=== PATIENT | female | born 1945 | race Caucasian/White ===

== ENCOUNTER 2019-07-27 14:08 | Inpatient (IN) | payer MEDICARE ==
[~2019-07-27] VITALS: Ht 167.6 cm; Wt 123.5 kg
[2019-07-27] MEDS ORDERED: FURO40TA2 PO (14:40)
[2019-07-27] MEDS ORDERED: BUPR150T3 PO (14:40)
[2019-07-27] MEDS ORDERED: GABA-843 PO (14:40)
[2019-07-27] MEDS ORDERED: ROPI4TAB3 PO (14:40)
[2019-07-27] MEDS ORDERED: METO1TAB32 PO (14:40)
[2019-07-27] MEDS ORDERED: FLUO10CA8 PO (14:40)
[2019-07-27 15:02] LABS: BASO % 0.5 % (0.0-1.0); EOS # 0.1 10^3/uL (0.0-0.5); EOS % 2.2 % (0.0-3.0); HEMATOCRIT 47.8 % (36.0-47.0); HEMOGLOBIN 15.2 g/dl (12.0-15.5); LYMPH # 1.6 10^3/uL (1.5-5.0); MEAN CORPUSCULAR HEMOGLOBIN 31.1 pg (27.0-33.0); MEAN CORPUSCULAR HGB CONC 31.8 g/dl (32.0-36.5); MONO # 0.5 10^3/uL (0.0-0.8); MONO % 7.6 % (0.0-5.0); NEUTROPHILS # 4.2 10^3/uL (1.5-8.5); NEUTROPHILS % 65.1 % (36.0-66.0); PLATELET COUNT, AUTOMATED 236 10^3/uL (150-450); RED BLOOD COUNT 4.88 10^6/uL (4.00-5.40); WHITE BLOOD COUNT 6.5 10^3/uL (4.0-10.0)
[2019-07-27] MEDS ORDERED: FUROSEMIDE 100 MG/10 ML VIAL (J1940) IV ONE (15:15)
[2019-07-27] MEDS ORDERED: TREL1AER INH (15:16)
[2019-07-27] MEDS ORDERED: RANO500T7 PO (15:16)
[2019-07-27] MEDS ORDERED: OMEP-218 PO (15:16)
[2019-07-27 15:30] LABS: ALBUMIN 3.2 GM/DL (3.2-5.2); ALT/SGPT 28 U/L (12-78); BILIRUBIN,DIRECT 0.1 MG/DL (0.0-0.2); BILIRUBIN,TOTAL 0.5 MG/DL (0.2-1.0); BLOOD UREA NITROGEN 28 MG/DL (7-18); CALCIUM LEVEL 9.4 MG/DL (8.8-10.2); CARBON DIOXIDE LEVEL 30 MEQ/L (21-32); CHLORIDE LEVEL 103 MEQ/L (98-107); CK-MB VALUE MASS < 1.0 NG/ML (<3.6); CPK CREATINE PHOSPHOKINASE 52 U/L (26-192); GLUCOSE, FASTING 121 MG/DL (70-100); MB/CK RELATIVE INDEX 1.92 (< OR =4); NT-PRO BNP 61 PG/ML (<125); POTASSIUM SERUM 4.2 MEQ/L (3.5-5.1); SODIUM LEVEL 141 MEQ/L (136-145); THYROXINE (T4) 11.2 UG/DL (4.5-12.0); TOTAL PROTEIN 7.6 GM/DL (6.4-8.2); TROPONIN I < 0.02 NG/ML (< 0.10)
[2019-07-27] MEDS ORDERED: IPRATROPIUM 0.5MG/ALBUTEROL 2.5MG INH SOL UD 3ML (DUONEB)(J7620) NEB ONE (16:30)
[2019-07-27] MEDS ORDERED: ONDANSETRON 4MG/2ML VIAL (J2405) IV ONE (17:00)
[2019-07-27] MEDS ORDERED: MORPHINE 2 MG/ML 1ML SYRINGE (J2270) IV ONE (17:00)
[2019-07-27] MEDS ORDERED: PROAAER10 INH (17:22)
[2019-07-27] MEDS ORDERED: ISOVUE-370 76% 100ML VIAL (Q9967) As Ordered ONE (17:52)
--- NOTE | 2019-07-27 18:26 | HPEPDOC ---
[facility] Medical History & Physical Date of Admission Jul 27, 2019 Date of Service: Jul 27, 2019 Attending Physician: ADELAIDA ABDUL MD History and Physical CHIEF COMPLAINT: Shortness of breath HISTORY OF PRESENT ILLNESS: 73 y.o female w/ PMH of COPD, HTN & GERD presents from home with progressive dypnea for the past 3 weeks, along with worsening LE edema. She has been having dyspnea for the past year, acutely worsened over the past 3 weeks. She also reports symptoms consistent with PND, sleeps with two pillows, requiring supplemental oxygen in the ED with b/l LE edema. She was evaluated by a Pusher Operator & Educational Resource Coordinator both of whom said the cause of her symptoms was not due to their organ of specialty. She has never had an Echocardiogram in the past, Cardiomegaly is noted on CXR. She has a history of breast Ca s/p mastectomy and is an active smoker. She denies personal or family history of blood clots; BNP wnl in the ED. 10 point ROS negative except for above. PAST MEDICAL HISTORY: 1. HTN. 2. GERD. 3. Breast cancer. 4. COPD PAST SURGICAL HISTORY: 1. Mastectomy. 2. Appendectomy. SOCIAL HISTORY: Tobacco use:active smoker, 1+ PPD ETOH: rare FAMILY HISTORY: strong family history of breast cancer ALLERGIES: Please see below. HOME MEDICATIONS: Please see below. PHYSICAL EXAMINATION: VITAL SIGNS: Please see below. GENERAL: No distress HEENT: Normocephalic, atraumatic, moist mucous membranes NECK: Supple CARDIOVASCULAR EXAMINATION: S1, S2, no murmurs RESPIRATORY EXAMINATION: Rhonchi appreciated ABDOMINAL EXAMINATION: Soft, nontender, nondistended, positive bowel sounds EXTREMITIES: Bilateral lower extremity pitting edema SKIN: No rash NEUROLOGICAL EXAMINATION: Alert and oriented 3, no focal deficits PSYCHIATRIC EXAMINATION: Calm and cooperative LABORATORY DATA: See below. IMAGING: Chest x-ray with cardiomegaly and vascular congestion MICROBIOLOGY: Please see below. ASSESSMENT: 73-year-old female with past medical history of COPD, hypertension and GERD presents with chronic but acutely worsened dyspnea and lower show any edema over the past 3 weeks. . PLAN: 1. Volume overload. Likely cardiac based on clinical assessment, status post 80 mg of IV Lasix in the ED Continue Lasix 40 mg IV daily. TTE pending, urine studies ordered to evaluate for nephrotic syndrome. CTA ordered to rule out PE given strong history of malignancy, neck mass, active smoker. 2. COPD Stable. Continue home meds, supplemental oxygen as needed to maintain oxygen sat uration of 90%. 3. CKD Stage III, will monitor renal function with Lasix and contrast administration. 4. Hypertension. Continue home meds. 5. GERD. Continue home PPI. DVT prophylaxis: Heparin subcutaneous. GI prophylaxis: Home PPI Vital Signs Vital Signs Date Time Temp Pulse Resp B/P (MAP) Pulse Ox O2 Delivery O2 Flow Rate FiO2 07/27/19 17:05 98.2 96 16 142/77 97 2.0 07/27/19 16:54 Room Air Laboratory Data Labs 24H Laboratory Tests 2 07/27/19 14:45: Immature Granulocyte % (Auto) 0.6, White Blood Count 6.5, Red Blood Count 4.88, Hemoglobin 15.2, Hematocrit 47.8H, Mean Corpuscular Volume 98.0H, Mean Corpuscular Hemoglobin 31.1, Mean Corpuscular Hemoglobin Concent 31.8L, Red Cell Distribution Width 13.9, Platelet Count 236, Neutrophils (%) (Auto) 65.1, Lymphocytes (%) (Auto) 24.0, Monocytes (%) (Auto) 7.6H, Eosinophils (%) (Auto) 2.2, Basophils (%) (Auto) 0.5, Neutrophils # (Auto) 4.2, Lymphocytes # (Auto) 1.6, Monocytes # (Auto) 0.5, Eosinophils # (Auto) 0.1, Basophils # (Auto) 0.0, Nucleated Red Blood Cells % (auto) 0.0 07/27/19 14:46: Anion Gap 8, Glomerular Filtration Rate 47.0, Calcium Level 9.4, Aspartate Amino Transf (AST/SGOT) 15, Alanine Aminotransferase (ALT/SGPT) 28, Alkaline Phosphatase 125H, Total Bilirubin 0.5, Direct Bilirubin 0.1, Total Creatine Kinase 52, Creatine Kinase MB < 1.0, Creatine Kinase MB Relative Index 1.92, Troponin I < 0.02, BU-Mwo-U-Type Natriuretic Peptide 61, Total Protein 7.6, Albumin 3.2, Albumin/Globulin Ratio 0.73L, Thyroid Stimulating Hormone (TSH) 1.620, Thyroxine (T4) 11.2 CBC/BMP Laboratory Tests 07/27/19 14:45 Red Blood Count 4.88, Mean Corpuscular Volume 98.0 H, Mean Corpuscular Hemoglobin 31.1, Mean Corpuscular Hemoglobin Concent 31.8 L, Red Cell Distrib ution Width 13.9, Neutrophils (%) (Auto) 65.1, Lymphocytes (%) (Auto) 24.0, Monocytes (%) (Auto) 7.6 H, Eosinophils (%) (Auto) 2.2, Basophils (%) (Auto) 0.5, Neutrophils # (Auto) 4.2, Lymphocytes # (Auto) 1.6, Monocytes # (Auto) 0.5, Eosinophils # (Auto) 0.1, Basophils # (Auto) 0.0 07/27/19 14:46 Home Medications Scheduled Bupropion Hcl (Bupropion Xl) 150 Mg Tab.er.24h, 150 MG PO DAILY Fluoxetine Hcl (Fluoxetine HCl) 10 Mg Capsule, 10 MG PO DAILY Fluticasone/Umeclidin/Vilanter (Trelegy Ellipta 100-62.5-25) 1 Each Blst.w.dev, 1 PUFF INH DAILY Furosemide (Furosemide) 40 Mg Tablet, 40 MG PO DAILY Gabapentin (Gabapentin) 300 Mg Capsule, 300 MG PO TID Metoprolol Succinate (Metoprolol Succinate) 25 Mg Tab.er.24h, 25 MG PO DAILY Omeprazole (Omeprazole) 20 Mg Capsule.dr, 20 MG PO DAILY Ranolazine (Ranexa) 500 Mg Tab.er.12h, 500 MG PO DAILY Ropinirole HCl (Ropinirole HCl) 4 Mg Tablet, 4 MG PO QHS Scheduled PRN Albuterol Sulfate (Proair Hfa) 8.5 Gm Hfa.aer.ad, 2 PUFF INH Q4H PRN for wheezing Allergies Coded Allergies: No Known Allergies (Verified , 04/22/03) A-FIB/CHADSVASC A-FIB History Current/History of A-Fib/PAF?: No ADELAIDA ABDUL MD Jul 27, 2019 18:26
--- NOTE | 2019-07-27 19:06 | ECGEPIP ---
[facility] - ED Test Date: 2019-07-27 Pat Name: ABI DAMIAN Department: Room: - Gender: Female [facility] Ad[facility] 1945 Requested By: ANDREW Parker Order Number: [id number] Reading MD: Jimmy Chambers Measurements Intervals [place] Rate: 63 P: 42 PA: 157 QRS: 10 QRSD: 86 T: 48 QT: 413 QTc: 424 Interpretive Statements SINUS RHYTHM NO PRIORS FOR COMPARISON Electronically Signed on 07-27-2019 19:05:34 EDT by Jimmy Chambers
--- NOTE | 2019-07-27 20:40 | REPVR ---
PROCEDURE INFORMATION: Exam: CT Angiography Chest With Contrast Exam date and time: 07/27/2019 7:28 PM Clinical history: 73 years old, female; Shortness of breath; Additional info: R/O pe TECHNIQUE: Imaging protocol: Computed tomographic angiography of the chest with intravenous contrast. 3D rendering: MIP reconstructed images were created and reviewed. Radiation optimization: All CT scans at this facility use at least one of these dose optimization techniques: automated exposure control; mA and/or kV adjustment per patient size (includes targeted exams where dose is matched to clinical indication); or iterative reconstruction. Contrast material: ISOVUE 370; Contrast volume: 75 ml; Contrast route: IV; COMPARISON: CR PORTABLE CHEST X-RAY 07/27/2019 2:59 PM FINDINGS: Pulmonary arteries: There is opacification of the pulmonary arteries with no evidence of pulmonary embolus. Aorta: There is opacification of the aorta which appears intact. There is prominent irregular atherosclerotic plaque with calcification. Thyroid: Normal thyroid. Lungs: There is interstitial density which may be mild interstitial edema at the posterior aspect of the right and left lung. Pleural space: There is no evidence of pneumothorax and no evidence of pleural effusion. There is a moderate-sized bulla in the right and left apical lung. Heart: There is cardiomegaly and no evidence of pericardial effusion. IMPRESSION: 1. No evidence of pulmonary embolus. 2. Mild interstitial edema posterior aspect the lungs. 3. Cardiomegaly. Electronically signed by: Darrius Eng On 07/27/2019 20:40:10 PM
[2019-07-27 21:00] VITALS: BP 158/81
[2019-07-27] MEDS: GABAPENTIN 300 MG CAP PO SCH (21:00)
[2019-07-27] MEDS: rOPINIRole 1MG TAB PO SCH (21:00)
[2019-07-27] MEDS ORDERED: ONDANSETRON 4 MG TAB (S0181) PO ONE (22:00)
[2019-07-27] MEDS: HEPARIN SOD (PORCINE) 5000 UNITS/ML VIAL SC SCH (22:08)
[2019-07-28] MEDS ORDERED: PROMETHAZINE INJ 25 MG/ML VIAL (J2550) IV STA (00:42)
--- NOTE | 2019-07-28 01:33 | REPVR ---
PROCEDURE INFORMATION: Exam: CT Head Without Contrast Exam date and time: 07/28/2019 12:54 AM Clinical history: 73 years old, female; Headache w/ intractable nausea. TECHNIQUE: Imaging protocol: Computed tomography of the head without contrast. Radiation optimization: All CT scans at this facility use at least one of these dose optimization techniques: automated exposure control; mA and/or kV adjustment per patient size (includes targeted exams where dose is matched to clinical indication); or iterative reconstruction. COMPARISON: No relevant prior studies available. FINDINGS: Brain: There is no evidence for an acute large vessel territorial infarct, intracranial hemorrhage, mass, mass effect, or herniation. There are non-specific foci of low attenuation in the periventricular and subcortical white matter, which are likely the sequela of chronic small vessel ischemic injury. Brainstem: Unremarkable. Midline shift: There is no midline shift. Ventricles: The ventricles are mildly dilated in proportion to the sulci, which is compatible with mild generalized cerebral volume loss. Bones/joints: Unremarkable. No acute fracture. Sinuses: Visualized sinuses are unremarkable. No fluid levels. Mastoid air cells: Visualized mastoid air cells are well aerated. Orbits: Incidental note is made of bilateral calcific senile scleral plaques. Soft tissues: Unremarkable. IMPRESSION: 1. No acute intracranial abnormality. 2. Periventricular and subcortical white matter changes, which are likely the sequela of chronic small vessel ischemic injury. Electronically signed by: Jacinto Ramos On 07/28/2019 01:32:54 AM
--- NOTE | 2019-07-28 01:40 | REPVR ---
PROCEDURE INFORMATION: Exam: XR Abdomen, 1 View Exam date and time: 07/28/2019 1:29 AM Clinical history: 73 years old, female; Intractable nausea and vomiting. TECHNIQUE: Imaging protocol: XR of the abdomen. Views: Frontal supine view of the abdomen. 1 View. COMPARISON: No relevant prior studies available. FINDINGS: Gastrointestinal tract: Unremarkable. No bowel dilation is noted. Organs: There is contrast material in the renal collecting systems, right ureter, and urinary bladder from prior intravenous contrast administration. Bones/joints: There are degenerative changes in the lumbar spine. IMPRESSION: No radiographic evidence for a bowel obstruction. Electronically signed by: Jacinto Ramos On 07/28/2019 01:40:23 AM
[2019-07-28 06:00] VITALS: BP 146/75
[2019-07-28 06:03] LABS: HEMATOCRIT 48.3 % (36.0-47.0); HEMOGLOBIN 15.2 g/dl (12.0-15.5); MEAN CORPUSCULAR HEMOGLOBIN 31.2 pg (27.0-33.0); MEAN CORPUSCULAR HGB CONC 31.5 g/dl (32.0-36.5); MEAN CORPUSCULAR VOLUME 99.2 fl (80.0-96.0); PLATELET COUNT, AUTOMATED 203 10^3/uL (150-450); RED BLOOD COUNT 4.87 10^6/uL (4.00-5.40); WHITE BLOOD COUNT 7.2 10^3/uL (4.0-10.0)
[2019-07-28 06:42] LABS: ALBUMIN 3.5 GM/DL (3.2-5.2); BILIRUBIN,TOTAL 0.7 MG/DL (0.2-1.0); CALCIUM LEVEL 9.6 MG/DL (8.8-10.2); CREATININE FOR GFR 1.54 MG/DL (0.55-1.30); GLOMERULAR FILTRATION RATE 35.3 (>39); MAGNESIUM LEVEL 2.2 MG/DL (1.8-2.4); POTASSIUM SERUM 4.8 MEQ/L (3.5-5.1); TOTAL PROTEIN 7.8 GM/DL (6.4-8.2)
[2019-07-28] MEDS: RANOLAZINE 500 MG ER TAB PO SCH (08:14)
[2019-07-28] MEDS: GABAPENTIN 300 MG CAP PO SCH ×3 (08:14→21:35)
[2019-07-28] MEDS: FLUoxetine 10 MG CAP PO SCH (08:15)
[2019-07-28] MEDS: OMEPRAZOLE 20 MG CAP PO SCH (08:15)
[2019-07-28] MEDS: FUROSEMIDE 40 MG/4 ML VIAL (J1940) IV SCH (08:15)
[2019-07-28] MEDS: METOPROLOL SUCC *XL* 25MG TAB (TopROL *XL*) PO SCH (08:15)
[2019-07-28] MEDS: HEPARIN SOD (PORCINE) 5000 UNITS/ML VIAL SC SCH ×2 (08:15→21:35)
[2019-07-28] MEDS: buPROPion **XL** TABLET 150MG (WELLBUTRIN XL) PO SCH (08:15)
[2019-07-28] MEDS: TRELEGY ELLIPTA (PATIENT'S OWN MED) INH SCH (09:00)
[2019-07-28] MEDS: ACETAMINOPHEN TAB 650MG DOSE (2X325MG) PO PRN ×2 (09:25→16:02)
[2019-07-28 14:00] VITALS: BP 130/75
--- NOTE | 2019-07-28 16:45 | IPNPDOC ---
Date Seen The patient was seen on 07/28/19. Progress Note HISTORY OF PRESENT ILLNESS: 73 y.o female w/ PMH of COPD, HTN & GERD presents from home with progressive dypnea for the past 3 weeks, along with worsening LE edema. She has been having dyspnea for the past year, acutely worsened over the past 3 weeks. She also reports symptoms consistent with PND, sleeps with two pillows, requiring supplemental oxygen in the ED with b/l LE edema. She was eval uated by a Client Services Manager & Duplicating Machine Mechanic both of whom said the cause of her symptoms was not due to their organ of specialty. She has never had an Echocardiogram in the past, Cardiomegaly is noted on CXR. She has a history of breast Ca s/p mastectomy and is an active smoker. She denies personal or family history of blood clots; BNP wnl in the ED. 07/28/2019 No acute events overnight, patient reports feeling fatigued, dyspnea has improved since yesterday, no other complaints at this time. She denies any chest pain, nausea, vomiting, abdominal pain, diarrhea or constipation. 10 point ROS negative except for above. ALLERGIES: Please see below. HOME MEDICATIONS: Please see below. PHYSICAL EXAMINATION: VITAL SIGNS: Please see below. GENERAL: No distress HEENT: Normocephalic, atraumatic, moist mucous membranes NECK: Supple CARDIOVASCULAR EXAMINATION: S1, S2, no murmurs RESPIRATORY EXAMINATION: Rhonchi appreciated ABDOMINAL EXAMINATION: Soft, nontender, nondistended, positive bowel sounds EXTREMITIES: Bilateral lower extremity pitting edema SKIN: No rash NEUROLOGICAL EXAMINATION: Alert and oriented 3, no focal deficits PSYCHIATRIC EXAMINATION: Calm and cooperative LABORATORY DATA: See below. IMAGING: CTA without PE, prominent vasculature noted, cardiomegaly. MICROBIOLOGY: Please see below. ASSESSMENT: 73-year-old female with past medical history of COPD, hypertension and GERD presents with chronic but acutely worsened dyspnea and lower show any edema over the past 3 weeks. . PLAN: 1. Volume overload. Likely cardiac based on clinical assessment Continue Lasix 40 mg IV daily. TTE pending, urine studies ordered to evaluate for nephrotic syndrome. CTA negative for PE, prominent pulmonary vasculature, cardiomegaly. 2. COPD Stable. Continue home meds, supplemental oxygen as needed to maintain oxygen saturation of 90%. 3. CKD Stage III. Rising creatinine noted, likely due to Lasix and possibly IV contrast, will continue to monitor on Lasix. 4. Hypertension. Continue home meds. 5. GERD. Continue home PPI. DVT prophylaxis: Heparin subcutaneous. GI prophylaxis: Home PPI VS, I&O, 24H, Fishbone Vital Signs/I&O Vital Signs Date Time Temp Pulse Resp B/P (MAP) Pulse Ox O2 Delivery O2 Flow Rate FiO2 07/28/19 14:00 98.0 80 18 130/75 (93) 98 3.0 07/27/19 19:24 Nasal Cannula I&O- Last 24 Hours up to 6 AM 07/28/19 06:00 Intake Total 300 ml Output Total 975 ml Balance -675 ml Laboratory Data 24H LABS Laboratory Tests 2 07/28/19 05:44: Nucleated Red Blood Cells % (auto) 0.0, Anion Gap 5L, Glomerular Filtration Rate 35.3L, Blood Urea Nitrogen 32H, Creatinine 1.54H, Sodium Level 138, Potassium Level 4.8, Chloride Level 101, Carbon Dioxide Level 32, Calcium Level 9.6, Aspar marshall Amino Transf (AST/SGOT) 10, Alanine Aminotransferase (ALT/SGPT) 27, Alkaline Phosphatase 123H, Total Bilirubin 0.7, Total Protein 7.8, Albumin 3.5, Magnesium Level 2.2, Albumin/Globulin Ratio 0.81L CBC/BMP Laboratory Tests 07/28/19 05:44 Red Blood Count 4.87, Mean Corpuscular Volume 99.2 H, Mean Corpuscular Hemoglobin 31.2, Mean Corpuscular Hemoglobin Concent 31.5 L, Red Cell Distribution Width 14.1, Calcium Level 9.6, Aspartate Amino Transf (AST/SGOT) 10, Alanine Aminotransferase (ALT/SGPT) 27, Alkaline Phosphatase 123 H, Total Bilirubin 0.7, Total Protein 7.8, Albumin 3.5 ADELAIDA ABDUL MD Jul 28, 2019 16:41
[2019-07-28] MEDS: rOPINIRole 1MG TAB PO SCH (21:35)
[2019-07-28 22:00] VITALS: BP 120/50
[2019-07-29] MEDS: IPRATROPIUM 0.5MG/ALBUTEROL 2.5MG INH SOL UD 3ML (DUONEB)(J7620) NEB PRN ×2 (01:36→06:28)
[2019-07-29 06:00] VITALS: BP 143/75
[2019-07-29] MEDS: ACETAMINOPHEN TAB 650MG DOSE (2X325MG) PO PRN ×2 (06:57→21:35)
--- NOTE | 2019-07-29 07:35 | ECHO ---
DATE OF SERVICE: 07/28/2019 REFERRING PROVIDER: Dr. Concha Matthew PATIENT LOCATION: Room 4219 REASON FOR ECHOCARDIOGRAM: Cardiomegaly. 2D MEASUREMENTS: IVS: 1.2 cm LV: 4.3 cm LVPW: 1.1 cm LA: 4.3 cm Aorta: 3.6 cm IVC: 1.8 cm DOPPLER MEASUREMENTS: Peak velocity across the aortic valve: 1.7 m/s Peak velocity across the LVOT: 1.6 m/s Peak gradient cross the aortic valve: 11 mmHg Mean gradient across the aortic valve: 6 mmHg Mitral E: 1.1 Mitral A: 1.5 with a ratio of 0.8 Maximum tricuspid valve velocity: 2.4 m/s 2D COMMENTS: 1. Normal left ventricular size, wall thickness, and normal global left ventricular systolic function. The estimated left ventricular systolic ejection fraction is 65-70%. 2. Mildly enlarged left atrium. Normal right atrium and right ventricle. 3. The atrial septum appeared to be normal without evidence of defect or shunt. 4. Normal aortic root. 5. A small pericardial effusion was noted, no evidence of cardiac tamponade. 6. Normal aortic valve. Mildly calcified mitral annulus with normal anterior mitral valve leaflet motion. Normal tricuspid valve. The pulmonic valve and proximal pulmonary artery branches were not well visualized. 7. The inferior vena cava was normal in size. Central venous pressure is most likely normal. Doppler, only mild tricuspid regurgitation detected. The calculated pulmonary artery systolic pressure varies between 30 to 40 mmHg. Abnormal relaxation pattern was noted across the mitral valve leaflets as well as the mitral valve annulus consistent with features of grade 1 left ventricular diastolic dysfunction. IMPRESSION: 1. Normal global left ventricular systolic function. There were some features of left ventricular diastolic dysfunction manifested by abnormal relaxation. 2. Mitral annulus calcification. There was a mildly dilated left atrium, but no significant mitral regurgitation or mitral stenosis detected. 3. Mild tricuspid regurgitation with mild pulmonary hypertension. 4. A small pericardial effusion was noted, no evidence of cardiac tamponade.
[2019-07-29] MEDS: HEPARIN SOD (PORCINE) 5000 UNITS/ML VIAL SC SCH ×2 (08:48→21:35)
[2019-07-29] MEDS: FUROSEMIDE 40 MG/4 ML VIAL (J1940) IV SCH (08:48)
[2019-07-29] MEDS: METOPROLOL SUCC *XL* 25MG TAB (TopROL *XL*) PO SCH (08:51)
[2019-07-29] MEDS: GABAPENTIN 300 MG CAP PO SCH ×3 (08:51→21:35)
[2019-07-29] MEDS: FLUoxetine 10 MG CAP PO SCH (08:51)
[2019-07-29] MEDS: OMEPRAZOLE 20 MG CAP PO SCH (08:51)
[2019-07-29] MEDS: RANOLAZINE 500 MG ER TAB PO SCH (08:53)
[2019-07-29] MEDS: buPROPion **XL** TABLET 150MG (WELLBUTRIN XL) PO SCH (08:53)
[2019-07-29] MEDS ORDERED: FLUBLOK(EGG FREE)(QUAD)INFLUENZA VACC 0.5ML SYRINGE (90682)18YRS&OLDER IM ONE (09:00)
[2019-07-29 10:05] LABS: HEMATOCRIT 46.1 % (36.0-47.0); HEMOGLOBIN 14.4 g/dl (12.0-15.5); MEAN CORPUSCULAR HEMOGLOBIN 31.7 pg (27.0-33.0); MEAN CORPUSCULAR HGB CONC 31.2 g/dl (32.0-36.5); MEAN CORPUSCULAR VOLUME 101.5 fl (80.0-96.0); PLATELET COUNT, AUTOMATED 197 10^3/uL (150-450); RED BLOOD COUNT 4.54 10^6/uL (4.00-5.40); WHITE BLOOD COUNT 7.5 10^3/uL (4.0-10.0)
[2019-07-29 10:29] LABS: CREATININE FOR GFR 1.29 MG/DL (0.55-1.30); GLOMERULAR FILTRATION RATE 43.2 (>39); MAGNESIUM LEVEL 2.2 MG/DL (1.8-2.4); POTASSIUM SERUM 4.4 MEQ/L (3.5-5.1)
[2019-07-29] MEDS: TRELEGY ELLIPTA (PATIENT'S OWN MED) INH SCH (10:55)
[2019-07-29 11:08] LABS: CREATININE,RANDOM URINE 83.3 MG/DL; TOTAL PROTEIN,RANDOM URINE 10.6 MG/DL (0.0-12.0)
[2019-07-29] MEDS: MIRALAX *UNIT DOSE* 17GM PACKET PO PRN (12:28)
[2019-07-29 14:00] VITALS: BP 130/65
--- NOTE | 2019-07-29 15:04 | IPNPDOC ---
Date Seen The patient was seen on 07/29/19. Progress Note HISTORY OF PRESENT ILLNESS: 73 y.o female w/ PMH of COPD, HTN & GERD presents from home with progressive dypnea for the past 3 weeks, along with worsening LE edema. She has been having dyspnea for the past year, acutely worsened over the past 3 weeks. She also reports symptoms consistent with PND, sleeps with two pillows, requiring supplemental oxygen in the ED with b/l LE edema. She was eval uated by a Database Technician & Electrical Controls Technician both of whom said the cause of her symptoms was not due to their organ of specialty. She has never had an Echocardiogram in the past, Cardiomegaly is noted on CXR. She has a history of breast Ca s/p mastectomy and is an active smoker. She denies personal or family history of blood clots; BNP wnl in the ED. 07/28/2019 No acute events overnight, patient reports feeling fatigued, dyspnea has improved since yesterday, no other complaints at this time. She denies any chest pain, nausea, vomiting, abdominal pain, diarrhea or constipation. 07/29/2019 Patient is very fatigued and sleepy, reports previous diagnosis of BOOM but was never compliant with CPAP due to poor mask fitting. She has required additional oxygen overnight, reports improvement in dyspnea, no other complaints. 10 point ROS negative except for above. ALLERGIES: Please see below. HOME MEDICATIONS: Please see below. PHYSICAL EXAMINATION: VITAL SIGNS: Please see below. GENERAL: No distress HEENT: Normocephalic, atraumatic, moist mucous membranes NECK: Supple CARDIOVASCULAR EXAMINATION: S1, S2, no murmurs RESPIRATORY EXAMINATION: Rhonchi appreciated ABDOMINAL EXAMINATION: Soft, nontender, nondistended, positive bowel sounds EXTREMITIES: Bilateral lower extremity pitting edema SKIN: No rash NEUROLOGICAL EXAMINATION: Alert and oriented 3, no focal deficits PSYCHIATRIC EXAMINATION: Calm and cooperative LABORATORY DATA: See below. IMAGING: CTA without PE, prominent vasculature noted, cardiomegaly. MICROBIOLOGY: Please see below. ASSESSMENT: 73-year-old female with past medical history of COPD, hypertension and GERD presents with chronic but acutely worsened dyspnea and lower show any edema over the past 3 weeks. . PLAN: 1. LE edema TTE w/ diastolic dysfunction & small pericardial effusion Continue Lasix 40 mg IV daily. symptoms likely caused by untreated BOOM, will start CPAP but patient will require official sleep study to confirm appropriate pressure & mask fitting. 2. COPD Stable. Continue home meds, supplemental oxygen as needed to maintain oxygen saturation of 90%. 3. CKD Stage III. stable, will monitor w/ diuresis 4. Hypertension. Continue home meds. 5. GERD. Continue home PPI. DVT prophylaxis: Heparin subcutaneous. GI prophylaxis: Home PPI VS, I&O, 24H, Fishbone Vital Signs/I&O Vital Signs Date Time Temp Pulse Resp B/P (MAP) Pulse Ox O2 Delivery O2 Flow Rate FiO2 07/29/19 12:54 4.0 07/29/19 08:51 82 143/69 07/29/19 06:57 30 89 07/29/19 06:00 98.5 07/27/19 19:24 Nasal Cannula I&O- Last 24 Hours up to 6 AM 07/29/19 05:59 Intake Total 1100 ml Output Total 1000 ml Balance 100 ml Laboratory Data 24H LABS Laboratory Tests 2 07/29/19 09:53: Nucleated Red Blood Cells % (auto) 0.0, Anion Gap 5L, Glomerular Filtration Rate 43.2, Blood Urea Nitrogen 31H, Creatinine 1.29, Sodium Level 136, Potassium Level 4.4, Chloride Level 100, Carbon Dioxide Level 31, Calcium Level 9.0, Magnesium Level 2.2 07/29/19 10:25: Urine Color YELLOW, Urine Appearance CLEAR, Urine pH 5.0, Urine Specific [place] 1.014, Urine Protein NEGATIVE, Urine Glucose (UA) NEGATIVE, Urine Ketones NEGATIVE, Urine Blood NEGATIVE, Urine Nitrite NEGATIVE, Urine Bilirubin NEGATIVE, Urine Urobilinogen 0.2, Urine Leukocyte Esterase NEGATIVE, Urine WBC (Auto) 0, Urine RBC (Auto) 0, Urine Hyaline Casts (Auto) 0, Urine Bacteria (Auto) NEGATIVE, Urine Squamous Epithelial Cells 1, Urine Mucus (Auto) SMALL, Urine Sperm (Auto) , Urine Random Creatinine 83.3, Urine Random Total Protein 10.6 CBC/BMP Laboratory Tests 07/29/19 09:53 Red Blood Count 4.54, Mean Corpuscular Volume 101.5 H, Mean Corpuscular Hemoglobin 31.7, Mean Corpuscular Hemoglobin Concent 31.2 L, Red Cell Distribution Width 13.3, Calcium Level 9.0 ADELAIDA ABDUL MD Jul 29, 2019 15:04
[2019-07-29] MEDS: rOPINIRole 1MG TAB PO SCH (21:34)
[2019-07-29] MEDS ORDERED: ONDANSETRON 4MG/2ML VIAL (J2405) IV PRN (23:30)
[2019-07-29] MEDS ORDERED: IBUPROFEN 400 MG TAB PO PRN (23:30)
[2019-07-30] VITALS (9 sets, daily range): BP systolic 106–137; BP diastolic 58–70
[2019-07-30] MEDS: IPRATROPIUM 0.5MG/ALBUTEROL 2.5MG INH SOL UD 3ML (DUONEB)(J7620) NEB PRN ×2 (00:53→07:46)
[2019-07-30] MEDS: BUDESONIDE 0.5 MG/2 ML INHALATION SUSPENSION INH SCH ×3 (02:00→19:46)
[2019-07-30] MEDS ORDERED: methylPREDNISolone INJ 125 MG/2 ML VIAL (J2930) IV SCH (02:00)
[2019-07-30 02:05] LABS: ABG BASE EXCESS 3.6 (-2.0-2.0); ABG HCO3 33.1 MEQ/L (22.0-26.0); ABG O2 SATURATION 92.2 % (95.0-99.0); ABG PARTIAL PRESSURE O2 66.8 mmHg (75.0-100.0); ABG STANDARD HCO3 27.5 MEQ/L (22.0-26.0); ABG TOTAL CO2 35.4 MEQ/L (23.0-31.0); ABG pH (ARTERIAL) 7.262 UNITS (7.350-7.450)
[2019-07-30 02:06] LABS: ABG PARTIAL PRESSURE CO2 75.1 mmHg (35.0-45.0)
--- NOTE | 2019-07-30 03:44 | REPVR ---
PROCEDURE INFORMATION: Exam: XR Chest, 1 View Exam date and time: 07/30/2019 2:41 AM Clinical history: 73 years old, female; Other: Hypoxia; Additional info: Hypoxia, need stat read TECHNIQUE: Imaging protocol: XR of the chest Views: 1 view. COMPARISON: CR PORTABLE CHEST X-RAY 07/27/2019 2:59 PM FINDINGS: Lungs: Stable appearance of interstitial opacities in both lungs. Evaluation is limited by low lung volumes however. No new infiltrates are seen. Pleural space: Unremarkable. No pleural effusion. No pneumothorax. Heart/Mediastinum: Stable cardiomegaly. Bones/joints: Unremarkable. IMPRESSION: Stable chest. No new abnormalities. Electronically signed by: Travon Velez On 07/30/2019 03:43:39 AM
[2019-07-30 04:49] LABS: ABG BASE EXCESS 2.3 (-2.0-2.0); ABG HCO3 31.1 MEQ/L (22.0-26.0); ABG O2 SATURATION 90.4 % (95.0-99.0); ABG PARTIAL PRESSURE O2 61.2 mmHg (75.0-100.0); ABG STANDARD HCO3 26.3 MEQ/L (22.0-26.0); ABG TOTAL CO2 33.2 MEQ/L (23.0-31.0)
[2019-07-30 04:51] LABS: ABG PARTIAL PRESSURE CO2 67.7 mmHg (35.0-45.0)
[2019-07-30 05:15] LABS: HEMATOCRIT 44.8 % (36.0-47.0); HEMOGLOBIN 14.1 g/dl (12.0-15.5); MEAN CORPUSCULAR HEMOGLOBIN 31.6 pg (27.0-33.0); MEAN CORPUSCULAR HGB CONC 31.5 g/dl (32.0-36.5); MEAN CORPUSCULAR VOLUME 100.4 fl (80.0-96.0); PLATELET COUNT, AUTOMATED 191 10^3/uL (150-450); RED BLOOD COUNT 4.46 10^6/uL (4.00-5.40); WHITE BLOOD COUNT 6.5 10^3/uL (4.0-10.0)
[2019-07-30 05:31] LABS: CREATININE FOR GFR 1.12 MG/DL (0.55-1.30); GLOMERULAR FILTRATION RATE 50.9 (>39)
--- NOTE | 2019-07-30 06:48 | IPN ---
DATE: 07/30/2019 This is a 73-year-old female with a past history of chronic obstructive pulmonary disease (COPD), hypertension, gastroesophageal reflux disease (GERD), who was admitted for having had increasing progressive shortness of breath and increasing lower extremity edema over approximately three weeks. She was sleeping with two pillows. She came to the emergency room and was subsequently admitted with lower extremity edema. Echocardiogram showed diastolic dysfunction with small pericardial effusion. She was placed on Lasix 40 mg IV daily. For COPD she is on supplemental oxygen. I was called by nursing that the patient was quite hypoxic, that they had called respiratory, they placed the patient on a nonrebreather with 15 liters of oxygen. They stated that earlier in the day her oxygen saturations had only been 88 and down to 81% and now they were in the high 70s. I ordered stat Solu-Medrol, respiratory treatment, chest x-ray, and a stat arterial blood gas. The patient was having auditory expiratory wheezing as well as increased respiratory rate of 28 per minute. Blood gas showed a pH of 7.26, pCO2 of 75, pO2 of 66, HCO3 33.1, ABG 02 saturation 92.2, base excess 3.6. Blood pressure was stable at 130/60. The patient was assessed and will be transferred to the intensive care unit (ICU) for BiPAP. I discussed with Dr. Myers who will place the BiPAP settings. Transfer orders will be done. The patient is agreeable. The patient will be transferred to the ICU. PHYSICAL EXAMINATION: Height 66 inches, weight 123.4 kg, BMI 43.9, blood pressure 130/60, pulse 98, respirations 26, oxygen saturation 82%, temperature 98. The patient is alert and oriented. Pupils equal and reactive to light. Extraocular muscles intact. Pharynx, tongue and gums pink and moist. Tongue is midline. Neck is supple without lymphadenopathy. No thyromegaly. No goiter. Jugular venous pressure (JVP) is at 2 at 45 degrees. Chest has expiratory wheezing. No retractions. Heart is regular. Abdomen benign. Bowel sounds are positive. Extremities 1-2+ edema. Peripheral pulses are equal and palpable bilaterally. IMPRESSION/PLAN: 1. COPD, elevated pCO2, pH acidotic. The patient will be transferred to the ICU, placed on BiPAP, IV Solu-Medrol, DuoNeb treatments, budesonide treatments. 2. CHF, diastolic. Continue Lasix 40 mg IV daily. 3. Chronic kidney disease. Clinically stable with 07/29 BUN 31, creatinine 1.29. 4. Hypertension, stable. 5. Anxiety/depression. Continue Prozac and Wellbutrin. 6. GERD. Stable. Continue Prilosec. 7. Restless legs. Continues on ropinirole, Requip. 8. Deep vein thrombosis (DVT) prophylaxis with heparin.
[2019-07-30] MEDS: IPRATROPIUM 0.5MG/ALBUTEROL 2.5MG INH SOL UD 3ML (DUONEB)(J7620) NEB SCH ×4 (08:00→19:46)
[2019-07-30] MEDS ORDERED: methylPREDNISolone INJ 40 MG/1 ML VIAL (J2920) IV SCH (08:00)
--- NOTE | 2019-07-30 08:01 | REP ---
PORTABLE CHEST X-RAY: SINGLE VIEW. 6:56 A.M. FILM: History: Hypoxia. Comparison study July 30, 2019, 2:33 a.m. film. Findings: Monitoring electrodes overlie the chest. There is discoid atelectasis in both lung bases. There is blunting of the right lateral pleural angle. These findings are unchanged from the earlier film. No new infiltrate. Cardiomediastinal silhouette is unchanged. Impression: Bibasilar plate-like atelectasis. Small right effusion. Borderline heart size. Electronically Signed by Brian Kidd MD 07/30/2019 09:42 A
[2019-07-30 08:12] LABS: ABG BASE EXCESS 3.3 (-2.0-2.0); ABG HCO3 32.5 MEQ/L (22.0-26.0); ABG O2 SATURATION 93.5 % (95.0-99.0); ABG STANDARD HCO3 27.3 MEQ/L (22.0-26.0); ABG TOTAL CO2 34.7 MEQ/L (23.0-31.0); ABG pH (ARTERIAL) 7.275 UNITS (7.350-7.450)
[2019-07-30 08:16] LABS: ABG PARTIAL PRESSURE CO2 71.6 mmHg (35.0-45.0)
--- NOTE | 2019-07-30 08:47 | REP ---
Portable chest x-ray: Single view. History: Dyspnea and cough. Findings: EKG electrodes and oxygen delivery tubing are seen. The lungs are symmetrically aerated and free of infiltrate. Pleural angles are sharp. Heart size is mildly prominent. Pulmonary vasculature is cephalized. There is no evidence of pleural effusion or pulmonary edema. Impression: Cardiomegaly and vascular cephalization. Otherwise negative. Electronically Signed by Brian Kidd MD 07/27/2019 03:31 P
[2019-07-30] MEDS: RANOLAZINE 500 MG ER TAB PO SCH (09:26)
[2019-07-30] MEDS: MIRALAX *UNIT DOSE* 17GM PACKET PO PRN (09:26)
[2019-07-30] MEDS: GABAPENTIN 300 MG CAP PO SCH ×3 (09:26→20:43)
[2019-07-30] MEDS: FLUoxetine 10 MG CAP PO SCH (09:27)
[2019-07-30] MEDS: buPROPion **XL** TABLET 150MG (WELLBUTRIN XL) PO SCH (09:27)
[2019-07-30] MEDS: METOPROLOL SUCC *XL* 25MG TAB (TopROL *XL*) PO SCH (09:27)
[2019-07-30] MEDS: OMEPRAZOLE 20 MG CAP PO SCH (09:27)
[2019-07-30] MEDS: HEPARIN SOD (PORCINE) 5000 UNITS/ML VIAL SC SCH ×2 (09:28→20:43)
[2019-07-30] MEDS: FUROSEMIDE 40 MG/4 ML VIAL (J1940) IV SCH (09:28)
[2019-07-30] MEDS: methylPREDNISolone INJ 125 MG/2 ML VIAL (J2930) IV SCH ×2 (09:28→18:04)
--- NOTE | 2019-07-30 09:40 | CCN ---
DATE: 07/30/2019 START TIME: 834 STOP TIME: 911 I was asked to attend Savanna Callaway here in the intensive care unit. The patient has been examined, chart reviewed. I have spoken with Dr. Matthew regarding her care. I spoke with Gaby Ontiveros earlier this morning. In essence, this is a 73-year-old female with ongoing tobacco use, known obstructive sleep apnea syndrome for which she sent her CPAP back against medical advice. Smoking at least a half to a pack of cigarettes a day. Has known underlying obstructive lung disease as well as underlying heart failure. She presents with several days of increasing shortness of breath. She was more short of breath over the last several days she has been here in the hospital. ABG done at 0158 this morning had a pH 7.262, pCO2 75.1, pO2 66.8. Placed on noninvasive support and even after manipulations pH 7.275, pCO2 71.6, pO2 70. Manipulations have just been made by myself. Despite, the above, she is awake, alert and appropriate. Says she is feeling better. Chest x-ray clearly shows vascular congestion. Maximum temperature (T-max) overnight 97, blood pressure 120-130s systolic, heart rate generally 70s and 80s, respiratory rate currently about 22-24 without accessory muscle use. Input and output have been essentially matched for the last several days. On examination, otherwise she is awake, alert and appropriate. Answers questions. Pupils react, sclerae are clear. Jugular venous system difficult to assess with the noninvasive mask in place. Chest shows diminished but symmetric expansion. There is mid expiratory wheezing. There is dependent crackles. No egophony or rubs. Cardial exam distant but regular. Peripheral pulses diminished but palpable. There is at least 1-2+ pitting lower extremity edema bilaterally. Abdomen is morbidly obese, soft with active bowel sounds. No convincing organomegaly or mass. Extremities without cyanosis or clubbing. Neurologically as outlined above. Other laboratories show a white blood cell count 6.5, hemoglobin 14.1, platelet count 191,000. No differential available. Sodium 138, potassium 5.0, chloride 101, CO2 36, BUN 32, creatinine 1.12. Most pressing problems requiring my presence at the bedside: 1. Acute on chronic respiratory failure both hypoxemic and hypercapnic. 2. Obstructive lung disease with exacerbation. 3. Suspect some element of cardiac dysfunction. 4. Ongoing continue tobacco abuse. 5. History of obstructive sleep apnea with noncompliance. At this point, we will make manipulations in her noninvasive support. I will repeat a blood gas. We will increase her steroids. She is on an inhaled bronchodilator via nebulizer. I have spoken at length with the primary service. For now, she will be nothing by mouth. Ulcer and deep venous thrombosis (DVT) prophylaxis as ordered by them. She is a FULL CODE and my hopes is that she will respond to noninvasive support as she has had a significant improvement in her mental status over the last 12 hours. Will proceed as outlined above. There is significant potential for decompensation. I left the bedside at 0912 hours. 37 minutes of total critical care done at the bedside not including procedures.
[2019-07-30 10:09] LABS: ABG BASE EXCESS 2.9 (-2.0-2.0); ABG HCO3 31.6 MEQ/L (22.0-26.0); ABG O2 SATURATION 95.5 % (95.0-99.0); ABG PARTIAL PRESSURE O2 77.2 mmHg (75.0-100.0); ABG TOTAL CO2 33.6 MEQ/L (23.0-31.0); ABG pH (ARTERIAL) 7.296 UNITS (7.350-7.450)
[2019-07-30 10:11] LABS: ABG PARTIAL PRESSURE CO2 66.3 mmHg (35.0-45.0)
[2019-07-30 14:04] LABS: ABG BASE EXCESS 6.8 (-2.0-2.0); ABG O2 SATURATION 89.6 % (95.0-99.0); ABG PARTIAL PRESSURE O2 55.7 mmHg (75.0-100.0); ABG STANDARD HCO3 30.5 MEQ/L (22.0-26.0); ABG pH (ARTERIAL) 7.343 UNITS (7.350-7.450)
[2019-07-30 14:08] LABS: ABG PARTIAL PRESSURE CO2 65.9 mmHg (35.0-45.0)
[2019-07-30] MEDS: PANTOPRAZOLE 40MG INJ (PROTONIX) (C9113) IV SCH (15:54)
[2019-07-30] MEDS: rOPINIRole 1MG TAB PO SCH (20:43)
[2019-07-31] VITALS: BP 102/52
[2019-07-31] MEDS: IPRATROPIUM 0.5MG/ALBUTEROL 2.5MG INH SOL UD 3ML (DUONEB)(J7620) NEB SCH ×7 (00:12→23:29)
[2019-07-31] MEDS: methylPREDNISolone INJ 125 MG/2 ML VIAL (J2930) IV SCH ×3 (01:57→17:08)
[2019-07-31 04:00] VITALS: BP 119/66
[2019-07-31 04:52] LABS: HEMATOCRIT 40.9 % (36.0-47.0); HEMOGLOBIN 13.3 g/dl (12.0-15.5); MEAN CORPUSCULAR HEMOGLOBIN 31.5 pg (27.0-33.0); MEAN CORPUSCULAR HGB CONC 32.5 g/dl (32.0-36.5); MEAN CORPUSCULAR VOLUME 96.9 fl (80.0-96.0); PLATELET COUNT, AUTOMATED 212 10^3/uL (150-450); RED BLOOD COUNT 4.22 10^6/uL (4.00-5.40); WHITE BLOOD COUNT 8.2 10^3/uL (4.0-10.0)
[2019-07-31 05:16] LABS: ALBUMIN 3.2 GM/DL (3.2-5.2); BILIRUBIN,TOTAL 0.5 MG/DL (0.2-1.0); CALCIUM LEVEL 9.4 MG/DL (8.8-10.2); CREATININE FOR GFR 1.37 MG/DL (0.55-1.30); GLOMERULAR FILTRATION RATE 40.3 (>39); MAGNESIUM LEVEL 2.2 MG/DL (1.8-2.4); PHOSPHORUS LEVEL 3.1 MG/DL (2.5-4.9); POTASSIUM SERUM 4.5 MEQ/L (3.5-5.1)
[2019-07-31 05:54] LABS: ABG BASE EXCESS 7.9 (-2.0-2.0); ABG HCO3 34.3 MEQ/L (22.0-26.0); ABG O2 SATURATION 95.4 % (95.0-99.0); ABG PARTIAL PRESSURE O2 71.7 mmHg (75.0-100.0); ABG STANDARD HCO3 31.7 MEQ/L (22.0-26.0); ABG pH (ARTERIAL) 7.413 UNITS (7.350-7.450)
[2019-07-31] MEDS: BUDESONIDE 0.5 MG/2 ML INHALATION SUSPENSION INH SCH ×2 (07:09→20:10)
[2019-07-31 08:00] VITALS: BP 121/60
[2019-07-31] MEDS: RANOLAZINE 500 MG ER TAB PO SCH (09:26)
[2019-07-31] MEDS: PANTOPRAZOLE 40MG INJ (PROTONIX) (C9113) IV SCH (09:26)
[2019-07-31] MEDS: GABAPENTIN 300 MG CAP PO SCH ×3 (09:26→20:50)
[2019-07-31] MEDS: FLUoxetine 10 MG CAP PO SCH (09:26)
[2019-07-31] MEDS: HEPARIN SOD (PORCINE) 5000 UNITS/ML VIAL SC SCH ×2 (09:26→20:50)
[2019-07-31] MEDS: METOPROLOL SUCC *XL* 25MG TAB (TopROL *XL*) PO SCH (09:27)
[2019-07-31] MEDS: buPROPion **XL** TABLET 150MG (WELLBUTRIN XL) PO SCH (09:27)
[2019-07-31] MEDS: FUROSEMIDE 40 MG/4 ML VIAL (J1940) IV SCH (09:27)
--- NOTE | 2019-07-31 10:39 | IPN ---
DATE OF VISIT: 07/31/2019 I again attended Savanna Callaway here in the intensive care unit. She is awake, alert, and appropriate. Anxious to have her mask off if possible. T-max overnight 94. Heart rate generally in the 80s with sinus mechanism. Blood pressure 100 to 120s. Respiratory rate in the low 20s without accessory muscle use. Intake and output midnight to midnight have 540 mL in with 1000 mL out. On examination, she is awake, alert and appropriate. Answers all questions. Says she is comfortable and breathing better today. Pupils react, sclerae are clear. Trache is midline. Lungs show diminished, but symmetric expansion. There is some mid expiratory wheezing, diminished especially at the bases. No convincing rhonchi, rubs, or egophony. Heart exam distant but regular. Peripheral pulses palpable. There is at least 1-2+ lower extremity edema. Abdomen is morbidly obese, soft with active bowel sounds. No convincing organomegaly or mass. Extremities without cyanosis or clubbing. Neurologically she is awake, alert, and appropriate. Psychiatric normal mood and affect. Laboratories show a white blood cell count of 8.2, hemoglobin 13.3, platelet count 212,000. Sodium 138, potassium 4.5, chloride 109, CO2 33, BUN 44, creatinine 1.37. Glucose 138. Blood gas done this morning on noninvasive support, I of 14, E of 8, FiO2 40% and pH 7.413, pC02 55.0, p02 71.7. IMPRESSION: 1. Acute on chronic respiratory failure both hypoxemic and hypercapnic. 2. Obstructive lung disease with exacerbation. 3. Continued tobacco abuse. 4. Obstructive sleep apnea (BOOM) with noncompliance. At this point, we will allow her periods off the noninvasive support. We continue her current steroids and bronchodilators. We had a long discussion regarding smoking cessation. We will allow her out of bed. She can have some liquids today. I did discuss with her the fact that her sleep apnea clearly needs to be treated and at least while she is here will stay on noninvasive support for HSN and naps. I spoke at length with the primary service regarding her care as well. I will proceed as outlined above. Further recommendations will be made in the progress record as soon as new information becomes available.
[2019-07-31 11:37] VITALS: BP 124/58
--- NOTE | 2019-07-31 16:52 | IPNPDOC ---
Date Seen The patient was seen on 07/31/19. Progress Note HISTORY OF PRESENT ILLNESS: 73 y.o female w/ PMH of COPD, HTN & GERD presents from home with progressive dypnea for the past 3 weeks, along with worsening LE edema. She has been having dyspnea for the past year, acutely worsened over the past 3 weeks. She also reports symptoms consistent with PND, sleeps with two pillows, requiring supplemental oxygen in the ED with b/l LE edema. She was eval uated by a Ballast Cleaning Machine Operator & Tire Mechanic both of whom said the cause of her symptoms was not due to their organ of specialty. She has never had an Echocardiogram in the past, Cardiomegaly is noted on CXR. She has a history of breast Ca s/p mastectomy and is an active smoker. She denies personal or family history of blood clots; BNP wnl in the ED. 07/28/2019 No acute events overnight, patient reports feeling fatigued, dyspnea has improved since yesterday, no other complaints at this time. She denies any chest pain, nausea, vomiting, abdominal pain, diarrhea or constipation. 07/29/2019 Patient is very fatigued and sleepy, reports previous diagnosis of BOOM but was never compliant with CPAP due to poor mask fitting. She has required additional oxygen overnight, reports improvement in dyspnea, no other complaints. 07/31/2019 The patient was transferred to the ICU for acute on chronic hypercapnic respiratory failure, placed on BiPAP, significant improvement this morning in clinical status and ABG, now off of BiPAP and tolerating diet. She denies any shortness of breath, cough, chest pain, nausea, vomiting, abdominal pain or diarrhea at this time. 10 point ROS negative except for above. ALLERGIES: Please see below. HOME MEDICATIONS: Please see below. PHYSICAL EXAMINATION: VITAL SIGNS: Please see below. GENERAL: No distress HEENT: Normocephalic, atraumatic, moist mucous membranes NECK: Supple CARDIOVASCULAR EXAMINATION: S1, S2, no murmurs RESPIRATORY EXAMINATION: Rhonchi appreciated ABDOMINAL EXAMINATION: Soft, nontender, nondistended, positive bowel sounds EXTREMITIES: Bilateral lower extremity edema improving SKIN: No rash NEUROLOGICAL EXAMINATION: Alert and oriented 3, no focal deficits PSYCHIATRIC EXAMINATION: Calm and cooperative LABORATORY DATA: See below. IMAGING: CTA without PE, prominent vasculature noted, cardiomegaly. MICROBIOLOGY: Please see below. ASSESSMENT: 73-year-old female with past medical history of COPD, hypertension and GERD presents with chronic but acutely worsened dyspnea and lower show any edema over the past 3 weeks. PLAN: 1. Acute on chronic hypercapnic respiratory failure Transferred to the ICU on BiPAP, remained on BiPAP for 24 hours, ABG significantly improved, will downgrade to MedSurg, continue BiPAP at night. Likely related to COPD and untreated underlying obstructive sleep apnea, will perform overnight desaturation study to help qualify for CPAP until she has an official sleep study outpatient for her BiPAP. Continue Lasix 40 mg IV daily. 2. COPD Continue home meds, supplemental oxygen as needed to maintain oxygen saturation of 90%. 3. CKD Stage III. stable, will monitor w/ diuresis 4. Hypertension. Continue home meds. 5. GERD. Continue home PPI. DVT prophylaxis: Heparin subcutaneous. GI prophylaxis: Home PPI VS, I&O, 24H, Fishbone Vital Signs/I&O Vital Signs Date Time Temp Pulse Resp B/P (MAP) Pulse Ox O2 Delivery O2 Flow Rate FiO2 07/31/19 12:00 3.0 07/31/19 11:37 98.0 85 22 124/58 (80) 92 07/31/19 08:00 40 07/27/19 19:24 Nasal Cannula I&O- Last 24 Hours up to 6 AM 07/31/19 06:00 Intake Total 740 ml Output Total 925 ml Balance -185 ml Laboratory Data 24H LABS Laboratory Tests 2 07/31/19 04:34: Nucleated Red Blood Cells % (auto) 0.0, Anion Gap 6L, Glomerular Filtration Rate 40.3, Blood Urea Nitrogen 44H, Creatinine 1.37H, Sodium Level 138, Potassium Level 4.5, Chloride Level 99, Carbon Dioxide Level 33H, Calcium Level 9.4, Phosphorus Level 3.1, Aspartate Amino Transf (AST/SGOT) 7, Alanine Aminotransferase (ALT/SGPT) 20, Alkaline Phosphatase 117, Total Bilirubin 0.5, Total Protein 7.0, Albumin 3.2, Magnesium Level 2.2, Albumin/Globulin Ratio 0.84L 07/31/19 05:27: Blood Gas Bicarbonate Standard 31.7H, Arterial Blood pH 7.413, Arterial Blood Partial Pressure CO2 55.0H, Arterial Blood Partial Pressure O2 71.7L, Arterial Blood Total CO2 36.0H, Arterial Blood HCO3 34.3H, Arterial Blood Base Excess 7.9H, Arterial Blood Oxygen Saturation 95.4 CBC/BMP Laboratory Tests 07/31/19 04:34 Red Blood Count 4.22, Mean Corpuscular Volume 96.9 H, Mean Corpuscular Hemoglobin 31.5, Mean Corpuscular Hemoglobin Concent 32.5, Red Cell Distribution Width 13.1, Calcium Level 9.4, Phosphorus Level 3.1, Aspartate Amino Transf (AST/SGOT) 7, Alanine Aminotransferase (ALT/SGPT) 20, Alkaline Phosphatase 117, Total Bilirubin 0.5, Total Protein 7.0, Albumin 3.2 ADELAIDA ABDUL MD Jul 31, 2019 16:52
[2019-07-31 20:00] VITALS: BP 146/67
[2019-07-31] MEDS: rOPINIRole 1MG TAB PO SCH (20:50)
[2019-08-01] MEDS: ACETAMINOPHEN TAB 650MG DOSE (2X325MG) PO PRN ×2 (00:28→21:27)
[2019-08-01 02:00] VITALS: BP 132/60
[2019-08-01] MEDS: methylPREDNISolone INJ 125 MG/2 ML VIAL (J2930) IV SCH (02:02)
[2019-08-01] MEDS: IPRATROPIUM 0.5MG/ALBUTEROL 2.5MG INH SOL UD 3ML (DUONEB)(J7620) NEB SCH (03:29)
[2019-08-01 05:00] LABS: HEMATOCRIT 40.3 % (36.0-47.0); HEMOGLOBIN 13.3 g/dl (12.0-15.5); MEAN CORPUSCULAR HEMOGLOBIN 31.2 pg (27.0-33.0); MEAN CORPUSCULAR VOLUME 94.6 fl (80.0-96.0); PLATELET COUNT, AUTOMATED 221 10^3/uL (150-450); RED BLOOD COUNT 4.26 10^6/uL (4.00-5.40); WHITE BLOOD COUNT 9.1 10^3/uL (4.0-10.0)
[2019-08-01 05:27] VITALS: BP 152/70
[2019-08-01 05:29] LABS: ALBUMIN 3.2 GM/DL (3.2-5.2); BILIRUBIN,TOTAL 0.6 MG/DL (0.2-1.0); CALCIUM LEVEL 9.5 MG/DL (8.8-10.2); CREATININE FOR GFR 1.36 MG/DL (0.55-1.30); GLOMERULAR FILTRATION RATE 40.7 (>39); POTASSIUM SERUM 4.3 MEQ/L (3.5-5.1); TOTAL PROTEIN 7.2 GM/DL (6.4-8.2)
[2019-08-01] MEDS: MIRALAX *UNIT DOSE* 17GM PACKET PO PRN (05:41)
[2019-08-01] MEDS: BUDESONIDE 0.5 MG/2 ML INHALATION SUSPENSION INH SCH ×2 (07:19→19:47)
[2019-08-01] MEDS ORDERED: SENNA 8.6 MG TAB (SENOKOT) PO PRN (09:00)
[2019-08-01] MEDS: PANTOPRAZOLE 40MG INJ (PROTONIX) (C9113) IV SCH (09:13)
[2019-08-01] MEDS: RANOLAZINE 500 MG ER TAB PO SCH (09:13)
[2019-08-01 09:14] VITALS: BP 138/65
[2019-08-01] MEDS: buPROPion **XL** TABLET 150MG (WELLBUTRIN XL) PO SCH (09:14)
[2019-08-01] MEDS: METOPROLOL SUCC *XL* 25MG TAB (TopROL *XL*) PO SCH (09:14)
[2019-08-01] MEDS: HEPARIN SOD (PORCINE) 5000 UNITS/ML VIAL SC SCH ×2 (09:14→21:28)
[2019-08-01] MEDS: GABAPENTIN 300 MG CAP PO SCH ×3 (09:14→21:28)
[2019-08-01] MEDS: FLUoxetine 10 MG CAP PO SCH (09:14)
--- NOTE | 2019-08-01 09:49 | NOCOX ---
DATE OF STUDY: 07/31 to morning of 08/01/2019 ORDERED BY: Dr. Matthew Reportedly done on a tabletop BiPAP, I of 14, E of 8, with 2 liters of oxygen bleed-in. Study of excellent technical quality. Mean oxygen saturation 91.8%. The lowest reliably recorded value briefly at 88%. No significant or sustained oxygen desaturation events are identified. Only minimal variability is identified. IMPRESSION: Acceptable oxygen saturation tracing on the above settings.
[2019-08-01 13:15] VITALS: BP 192/108
[2019-08-01 13:25] VITALS: BP 148/90
--- NOTE | 2019-08-01 15:46 | IPNPDOC ---
Date Seen The patient was seen on 08/01/19. Progress Note HISTORY OF PRESENT ILLNESS: 73 y.o female w/ PMH of COPD, HTN & GERD presents from home with progressive dypnea for the past 3 weeks, along with worsening LE edema. She has been having dyspnea for the past year, acutely worsened over the past 3 weeks. She also reports symptoms consistent with PND, sleeps with two pillows, requiring supplemental oxygen in the ED with b/l LE edema. She was eval uated by a Cardiology Physician & Customs Compliance Specialist both of whom said the cause of her symptoms was not due to their organ of specialty. She has never had an Echocardiogram in the past, Cardiomegaly is noted on CXR. She has a history of breast Ca s/p mastectomy and is an active smoker. She denies personal or family history of blood clots; BNP wnl in the ED. 07/28/2019 No acute events overnight, patient reports feeling fatigued, dyspnea has improved since yesterday, no other complaints at this time. She denies any chest pain, nausea, vomiting, abdominal pain, diarrhea or constipation. 07/29/2019 Patient is very fatigued and sleepy, reports previous diagnosis of BOOM but was never compliant with CPAP due to poor mask fitting. She has required additional oxygen overnight, reports improvement in dyspnea, no other complaints. 07/31/2019 The patient was transferred to the ICU for acute on chronic hypercapnic respiratory failure, placed on BiPAP, significant improvement this morning in clinical status and ABG, now off of BiPAP and tolerating diet. She denies any shortness of breath, cough, chest pain, nausea, vomiting, abdominal pain or diarrhea at this time. 08/01/2019 Patient tolerated BiPAP overnight without any complaints, currently resting in chair, reports she hasn't felt this well for years, requiring supplemental oxygen with ambulation. She will need to follow up outpatient for a sleep study to qualify for CPAP/BiPAP. Patient has no other complaint at this time, denies shortness of breath, chest pain, nausea, vomiting, abdominal pain or diarrhea. 10 point ROS negative except for above. ALLERGIES: Please see below. HOME MEDICATIONS: Please see below. PHYSICAL EXAMINATION: VITAL SIGNS: Please see below. GENERAL: No distress HEENT: Normocephalic, atraumatic, moist mucous membranes NECK: Supple CARDIOVASCULAR EXAMINATION: S1, S2, no murmurs RESPIRATORY EXAMINATION: Distant, diminished ABDOMINAL EXAMINATION: Soft, nontender, nondistended, positive bowel sounds EXTREMITIES: Bilateral lower extremity edema improving SKIN: No rash NEUROLOGICAL EXAMINATION: Alert and oriented 3, no focal deficits PSYCHIATRIC EXAMINATION: Calm and cooperative LABORATORY DATA: See below. IMAGING: CTA without PE, prominent vasculature noted, cardiomegaly. MICROBIOLOGY: Please see below. ASSESSMENT: 73-year-old female with past medical history of COPD, hypertension and GERD presents with chronic but acutely worsened dyspnea and lower show any edema over the past 3 weeks. PLAN: 1. Acute on chronic hypercapnic respiratory failure Transferred to the ICU on BiPAP, remained on BiPAP for 24 hours, ABG significantly improved, will downgrade to MedSurg, continue BiPAP at night. Likely related to COPD and untreated underlying obstructive sleep apnea, will perform overnight desaturation study to help qualify for CPAP until she has an official sleep study outpatient for her BiPAP. Clinically at baseline. Continue home COPD medications, supplement oxygen as needed to maintain O2 saturation over 90%, will assess for need of home oxygen. 2. Acute on chronic diastolic heart failure. Significant improved with IV Lasix. Discontinue IV Lasix, oral Lasix 40 mg daily starting tomorrow. 3. CKD Stage III. stable, will monitor w/ diuresis 4. Hypertension. Continue home meds. 5. GERD. Continue home PPI. DVT prophylaxis: Heparin subcutaneous. GI prophylaxis: Home PPI VS, I&O, 24H, Fishbone Vital Signs/I&O Vital Signs Date Time Temp Pulse Resp B/P (MAP) Pulse Ox O2 Delivery O2 Flow Rate FiO2 08/01/19 13:25 97.6 82 20 148/90 (109) 90 3.0 08/01/19 02:00 40 07/27/19 19:24 Nasal Cannula I&O- Last 24 Hours up to 6 AM 08/01/19 06:00 Intake Total 2100 ml Output Total 1325 ml Balance 775 ml Laboratory Data 24H LABS Laboratory Tests 2 07/31/19 17:19: Magnesium Level 2.4 08/01/19 04:46: Nucleated Red Blood Cells % (auto) 0.0, Anion Gap 7L, Glomerular Filtration Rate 40.7, Calcium Level 9.5, Total Bilirubin 0.6, Aspartate Amino Transf (AST/SGOT) 10, Alanine Aminotransferase (ALT/SGPT) 23, Alkaline Phosphatase 95, Total Protein 7.2, Albumin 3.2, Albumin/Globulin Ratio 0.80L CBC/BMP Laboratory Tests 08/01/19 04:46 ADELAIDA ABDUL MD Aug 01, 2019 15:46
[2019-08-01 20:00] VITALS: BP 135/71
[2019-08-01] MEDS: rOPINIRole 1MG TAB PO SCH (21:27)
[2019-08-02 06:00] VITALS: BP 140/78
[2019-08-02] MEDS: BUDESONIDE 0.5 MG/2 ML INHALATION SUSPENSION INH SCH (08:00)
[2019-08-02] MEDS: RANOLAZINE 500 MG ER TAB PO SCH (08:36)
[2019-08-02] MEDS: buPROPion **XL** TABLET 150MG (WELLBUTRIN XL) PO SCH (08:36)
[2019-08-02] MEDS: GABAPENTIN 300 MG CAP PO SCH (08:36)
[2019-08-02] MEDS: METOPROLOL SUCC *XL* 25MG TAB (TopROL *XL*) PO SCH (08:36)
[2019-08-02] MEDS: FLUoxetine 10 MG CAP PO SCH (08:36)
[2019-08-02] MEDS: HEPARIN SOD (PORCINE) 5000 UNITS/ML VIAL SC SCH (08:36)
[2019-08-02] MEDS ORDERED: FUROSEMIDE 40 MG TAB PO SCH (09:00)
--- NOTE | 2019-08-02 15:38 | DS.PDOC ---
Discharge Summary General Date of Admission Jul 27, 2019 at 17:39 Date of Discharge 08/02/2019 Attending Physician: ADELAIDA ABDUL MD Discharge Summary PROCEDURES PERFORMED DURING STAY: None. ADMITTING DIAGNOSES: 1. Acute on chronic diastolic heart failure, acute on chronic respiratory failure. DISCHARGE DIAGNOSES: 1. Acute on chronic diastolic heart failure, acute on chronic respiratory failure. COMPLICATIONS/CHIEF COMPLAINT: Ckd,Copd,Edema,Gerd,Htn,Hypoxemia. HISTORY OF PRESENT ILLNESS: 73-year-old female with past medical history of COPD, obstructive sleep apnea (noncompliant with CPAP), CKD, diastolic heart failure, hypertension, was admitted for acute on chronic diastolic heart failure. She was treated with IV Lasix, hospitalization was complicated by acute on chronic hypercapnic and hypoxemic history failure. She was transferred to the ICU, placed on noninvasive ventilation, with significant improvement after 24 hours and then was downgraded back to the floor. Patient has long-standing history of obstructive sleep apnea with underlying COPD which is not been treated because she was noncompliant with CPAP due to poor mask fitting and financial issues. Her mentation, respiratory status, O2 requirements and activity have all significantly improved after using BiPAP overnight for the past few days. Patient is advised to follow up outpatient with Dr. Holloway and undergo a sleep study as soon as possible with further treatment with BiPAP/CPAP as appropriate. Patient was evaluated for the need of home oxygen with a walking desats study, patient ambulated throughout the entire acute rehabilitation unit floor without oxygen with a drop in oxygen saturation to 88%. She is advised to follow-up as soon as possible to prevent further decline in her breast or status; patient and family at bedside understand and agree with plan. HOSPITAL COURSE: as above. DISCHARGE MEDICATIONS: Please see below. ALLERGIES: Please see below. PHYSICAL EXAMINATION: VITAL SIGNS: Please see below. GENERAL: No distress HEENT: Normocephalic, atraumatic, moist mucous membranes NECK: Supple CARDIOVASCULAR EXAMINATION: S1, S2, no murmurs RESPIRATORY EXAMINATION: Clear to auscultation, no wheezing ABDOMINAL EXAMINATION: Soft, nontender, nondistended, positive bowel sounds EXTREMITIES: Range of motion intact SKIN: No rash NEUROLOGICAL EXAMINATION: Alert and oriented 3, no focal deficits PSYCHIATRIC EXAMINATION: Calm and cooperative LABORATORY DATA: Please see below. PROGNOSIS: Guarded ACTIVITY: As tolerated. DIET: Cardiac DISCHARGE PLAN: Patient is to follow-up with Dr. Holloway for sleep study as soon as possible. PCP within 1-2 weeks DISPOSITION: Home DISCHARGE INSTRUCTIONS: 1. As above. DISCHARGE CONDITION: Stable. TIME SPENT ON DISCHARGE: Greater than 33 minutes. Vital Signs/I&Os Vital Signs Date Time Temp Pulse Resp B/P (MAP) Pulse Ox O2 Delivery O2 Flow Rate FiO2 08/02/19 08:58 40 08/02/19 06:00 97.4 82 20 140/78 (98) 92 3.0 07/27/19 19:24 Nasal Cannula I&O- Last 24 Hours up to 6 AM 08/02/19 06:00 Intake Total 2580 ml Output Total 2500 ml Balance 80 ml Discharge Medications Scheduled Bupropion Hcl (Bupropion Xl) 150 Mg Tab.er.24h, 150 MG PO DAILY, (Reported) Fluoxetine Hcl (Fluoxetine HCl) 10 Mg Capsule, 10 MG PO DAILY, (Reported) Fluticasone/Umeclidin/Vilanter (Trelegy Ellipta 100-62.5-25) 1 Each Blst.w.dev, 1 PUFF INH DAILY, (Reported) Furosemide (Furosemide) 40 Mg Tablet, 40 MG PO DAILY, (Reported) Gabapentin (Gabapentin) 300 Mg Capsule, 300 MG PO TID, (Reported) Metoprolol Succinate (Metoprolol Succinate) 25 Mg Tab.er.24h, 25 MG PO DAILY, (Reported) Omeprazole (Omeprazole) 20 Mg Capsule.dr, 20 MG PO DAILY, (Reported) Ranolazine (Ranexa) 500 Mg Tab.er.12h, 500 MG PO DAILY, (Reported) Ropinirole HCl (Ropinirole HCl) 4 Mg Tablet, 4 MG PO QHS, (Reported) Scheduled PRN Albuterol Sulfate (Proair Hfa) 8.5 Gm Hfa.aer.ad, 2 PUFF INH Q4H PRN for whee zing, (Reported) Allergies Coded Allergies: No Known Allergies (Verified , 04/22/03) ADELAIDA ABDUL MD Aug 02, 2019 15:38
[2019-08-02 16:48] VITALS: BP 127/73
== END 2019-08-02 17:30 | disposition home health service (06) | DRG 291 ==
LOC: M ED 14:08 → M ED INP 17:39 → M MSPAV 20:54 → M ICU 07-30 03:18 → M MS4PR 08-01 05:14
PROVIDERS: ADMIT Internal Medicine; ATTEND Internal Medicine
DX: I13.0 Hypertensive heart and chronic kidney disease with heart failure and stage 1 through stage 4 chronic kidney disease, or unspecified chronic kidney disease (principal); I50.33 Acute on chronic diastolic (congestive) heart failure; J96.21 Acute and chronic respiratory failure with hypoxia; J96.22 Acute and chronic respiratory failure with hypercapnia; E87.2 Acidosis; J44.1 Chronic obstructive pulmonary disease with (acute) exacerbation; N18.3 Chronic kidney disease, stage 3 (moderate); K21.9 Gastro-esophageal reflux disease without esophagitis; G47.33 Obstructive sleep apnea (adult) (pediatric); Z85.3 Personal history of malignant neoplasm of breast; F17.210 Nicotine dependence, cigarettes, uncomplicated; Z90.49 Acquired absence of other specified parts of digestive tract; Z79.899 Other long term (current) drug therapy; Z91.19 Patient's noncompliance with other medical treatment and regimen; G25.81 Restless legs syndrome

== ENCOUNTER → 2019-08-23 | Outpatient (CLI) | payer MEDICARE ==
[~2019-08-23] MED LIST: BUPR150T3 PO; FLUO10CA8 PO; FURO40TA2 PO; GABA-843 PO; METO1TAB32 PO; OMEP-218 PO; PROAAER10 INH; RANO500T7 PO; ROPI4TAB3 PO; TREL1AER INH
== END ==
LOC: M SLEEP 19:32
PROVIDERS: ATTEND Internal Medicine Pulmonary Disease
DX: G47.33 Obstructive sleep apnea (adult) (pediatric) (principal)

== ENCOUNTER 2019-08-31 11:21 | Emergency (ER) | payer MEDICARE ==
[~2019-08-31] VITALS: Ht 167.6 cm; Wt 122.7 kg
[2019-08-31 12:13] LABS: ABG BASE EXCESS 0.9 (-2.0-2.0); ABG HCO3 26.3 MEQ/L (22.0-26.0); ABG O2 SATURATION 93.4 % (95.0-99.0); ABG PARTIAL PRESSURE O2 66.9 mmHg (75.0-100.0); ABG STANDARD HCO3 25.2 MEQ/L (22.0-26.0); ABG TOTAL CO2 27.7 MEQ/L (23.0-31.0); ABG pH (ARTERIAL) 7.385 UNITS (7.350-7.450)
[2019-08-31 12:24] LABS: BASO # 0.1 10^3/uL (0.0-0.2); BASO % 0.7 % (0.0-1.0); EOS # 0.1 10^3/uL (0.0-0.5); HEMATOCRIT 44.1 % (36.0-47.0); HEMOGLOBIN 13.7 g/dl (12.0-15.5); LYMPH # 1.4 10^3/uL (1.5-5.0); LYMPH % 18.9 % (24.0-44.0); MEAN CORPUSCULAR HEMOGLOBIN 30.7 pg (27.0-33.0); MEAN CORPUSCULAR HGB CONC 31.1 g/dl (32.0-36.5); MEAN CORPUSCULAR VOLUME 98.9 fl (80.0-96.0); MONO # 0.9 10^3/uL (0.0-0.8); MONO % 12.1 % (0.0-5.0); NEUTROPHILS # 4.7 10^3/uL (1.5-8.5); NEUTROPHILS % 65.7 % (36.0-66.0); PLATELET COUNT, AUTOMATED 215 10^3/uL (150-450); RED BLOOD COUNT 4.46 10^6/uL (4.00-5.40); WHITE BLOOD COUNT 7.1 10^3/uL (4.0-10.0)
--- NOTE | 2019-08-31 12:35 | REP ---
Portable chest x-ray: Single view. History: Short of breath. Comparison study: July 30, 2019. Findings: EKG monitoring electrodes overlie the chest. Heart size is borderline unchanged. Pulmonary vasculature is cephalized and somewhat congested. No pleural effusion or pulmonary edema seen. No focal infiltrate. Electronically Signed by Brian Kidd MD 08/31/2019 12:27 P
[2019-08-31 13:02] LABS: BLOOD UREA NITROGEN 16 MG/DL (7-18); CALCIUM LEVEL 8.8 MG/DL (8.8-10.2); CARBON DIOXIDE LEVEL 32 MEQ/L (21-32); CHLORIDE LEVEL 102 MEQ/L (98-107); CK-MB VALUE MASS < 1.0 NG/ML (<3.6); CPK CREATINE PHOSPHOKINASE 66 U/L (26-192); CREATININE FOR GFR 1.04 MG/DL (0.55-1.30); GLOMERULAR FILTRATION RATE 55.5 (>39); GLUCOSE, FASTING 96 MG/DL (70-100); MB/CK RELATIVE INDEX 1.52 (< OR =4); NT-PRO BNP 298 PG/ML (<125); POTASSIUM SERUM 3.6 MEQ/L (3.5-5.1); SODIUM LEVEL 142 MEQ/L (136-145); TROPONIN I < 0.02 NG/ML (< 0.10)
[2019-08-31] MEDS ORDERED: IPRATROPIUM 0.5MG/ALBUTEROL 2.5MG INH SOL UD 3ML (DUONEB)(J7620) NEB ONE (13:15)
[2019-08-31] MEDS ORDERED: FUROSEMIDE 40 MG/4 ML VIAL (J1940) IV ONE (13:15)
[2019-08-31] MEDS ORDERED: methylPREDNISolone INJ 125 MG/2 ML VIAL (J2930) IV ONE (13:15)
[2019-08-31] MEDS ORDERED: NS 500 ML IV ONE (13:15)
[2019-08-31] MEDS ORDERED: ALBUTEROL SULFATE 2.5 MG/0.5 ML INH NEB SOLN NEB ONE (13:30)
[2019-08-31 16:13] VITALS: O2SAT 91
[2019-08-31] MEDS ORDERED: PRED10TA2 PO (16:44)
[2019-08-31] MEDS ORDERED: IPRA0.00 NEB (16:44)
[2019-08-31] MEDS ORDERED: MUCI600T31 PO (16:44)
[2019-08-31 17:22] VITALS: BP 137/62
--- NOTE | 2019-08-31 19:11 | ECGEPIP ---
[facility] - ED Test Date: 2019-08-31 Pat Name: ABI DAMIAN Department: Room: - Gender: Female Manufacturing Assembler: : [id number] Requested By: Dianna Alvares Order Number: [id number] Reading MD: Lila Miller Measurements Intervals [place] Rate: 62 P: 46 [place]: 149 QRS: 12 QRSD: 92 T: 51 QT: 405 QTc: 412 Interpretive Statements SINUS RHYTHM NONSPECIFIC T-WAVE ABNORMALITY SIMILAR 07/27/19 Electronically Signed on 08-31-2019 19:11:16 EST by Lila Miller
== END 2019-08-31 17:28 | disposition home or self-care (01) ==
LOC: M ED 11:21
DX: J44.1 Chronic obstructive pulmonary disease with (acute) exacerbation (principal); I50.9 Heart failure, unspecified; I13.0 Hypertensive heart and chronic kidney disease with heart failure and stage 1 through stage 4 chronic kidney disease, or unspecified chronic kidney disease; N18.3 Chronic kidney disease, stage 3 (moderate); M79.7 Fibromyalgia; Z85.3 Personal history of malignant neoplasm of breast; Z90.12 Acquired absence of left breast and nipple; Z87.891 Personal history of nicotine dependence; Z79.899 Other long term (current) drug therapy; Z79.51 Long term (current) use of inhaled steroids
CPT/HCPCS: 36415; 36600; 71045; 80048; 82550; 82553; 82803; 83605; 83880; 84484; 85025; 87040; 87070; 87077; 87185; 87186; 87205; 87486; 87581; 87633; 87798; 93005; 93041; 94640; 96374; 96375; 99285; J1940; J2930

== ENCOUNTER 2019-09-30 14:36 | Inpatient (IN) | payer MEDICARE, MEDICAID ==
[~2019-09-30] VITALS: Ht 167.6 cm; Wt 125.6 kg
[~2019-09-30 14:36] MED LIST changes: +FLUO10CA15 PO; -FLUO10CA8 PO; +IPRA0.00 NEB; +MUCI600T31 PO; +PRED10TA2 PO
[2019-09-30] MEDS ORDERED: dexameTHASONE 20 MG/5 ML VIAL (J1100) IV ONE (16:30)
[2019-09-30] MEDS ORDERED: ALBUTEROL SULFATE 2.5 MG/0.5 ML INH NEB SOLN INH ONE (16:30)
[2019-09-30] MEDS ORDERED: IPRATROPIUM 0.5MG/ALBUTEROL 2.5MG INH SOL UD 3ML (DUONEB)(J7620) NEB ONE (16:30)
[2019-09-30 16:43] LABS: BASO # 0.1 10^3/uL (0.0-0.2); BASO % 0.6 % (0.0-1.0); EOS # 0.2 10^3/uL (0.0-0.5); EOS % 1.9 % (0.0-3.0); HEMATOCRIT 45.4 % (36.0-47.0); HEMOGLOBIN 14.3 g/dl (12.0-15.5); LYMPH # 2.1 10^3/uL (1.5-5.0); LYMPH % 26.3 % (24.0-44.0); MEAN CORPUSCULAR HEMOGLOBIN 30.6 pg (27.0-33.0); MEAN CORPUSCULAR HGB CONC 31.5 g/dl (32.0-36.5); MONO # 0.8 10^3/uL (0.0-0.8); MONO % 10.4 % (0.0-5.0); NEUTROPHILS # 4.8 10^3/uL (1.5-8.5); NEUTROPHILS % 59.2 % (36.0-66.0); PLATELET COUNT, AUTOMATED 229 10^3/uL (150-450); RED BLOOD COUNT 4.68 10^6/uL (4.00-5.40); VENOUS BASE EXCESS 1.6 (-2.0-2.0); VENOUS HCO3 27.9 MEQ/L (23.0-27.0); VENOUS O2 SATURATION 49.4 % (60.0-80.0); VENOUS PARTIAL PRESSURE O2 28.2 mmHg (30.0-50.0); VENOUS PH 7.364 UNITS (7.330-7.430); VENOUS STANDARD HCO3 24.6 MEQ/L; VENOUS TOTAL CO2 29.4 MEQ/L (24.0-28.0); WHITE BLOOD COUNT 8.1 10^3/uL (4.0-10.0)
[2019-09-30 16:54] LABS: INR 0.98; PROTHROMBIN TIME 12.7 SECONDS (11.8-14.0)
[2019-09-30 17:07] LABS: ALBUMIN 3.4 GM/DL (3.2-5.2); ALT/SGPT 59 U/L (12-78); BILIRUBIN,DIRECT 0.2 MG/DL (0.0-0.2); BILIRUBIN,TOTAL 0.6 MG/DL (0.2-1.0); BLOOD UREA NITROGEN 21 MG/DL (7-18); CARBON DIOXIDE LEVEL 28 MEQ/L (21-32); CHLORIDE LEVEL 101 MEQ/L (98-107); CK-MB VALUE MASS 1.4 NG/ML (<3.6); CPK CREATINE PHOSPHOKINASE 129 U/L (26-192); CREATININE FOR GFR 1.24 MG/DL (0.55-1.30); GLOMERULAR FILTRATION RATE 45.3 (>39); GLUCOSE, FASTING 86 MG/DL (70-100); MB/CK RELATIVE INDEX 1.09 (< OR =4); NT-PRO BNP 53 PG/ML (<125); POTASSIUM SERUM 3.7 MEQ/L (3.5-5.1); SODIUM LEVEL 140 MEQ/L (136-145); TOTAL PROTEIN 7.1 GM/DL (6.4-8.2); TROPONIN I < 0.02 NG/ML (< 0.10)
[2019-09-30] MEDS ORDERED: FUROSEMIDE 40 MG/4 ML VIAL (J1940) IV ONE (17:45)
[2019-09-30] MEDS ORDERED: ATOR40TA75 PO (17:51)
[2019-09-30] MEDS ORDERED: IPRA0.00 NEB (17:51)
[2019-09-30] MEDS ORDERED: LISI-1046 PO (17:51)
[2019-09-30] MEDS ORDERED: MUCI1TAB16 PO (17:51)
--- NOTE | 2019-09-30 18:53 | REP ---
Portable chest x-ray: Single view. History: Dyspnea and cough. Comparison study: August 31, 2019. Findings: Monitoring electrodes overlie the chest. Heart is not enlarged. Pulmonary vasculature is not increased. Pleural angles are sharp. No bony abnormality is seen. Impression: No active disease. Electronically Signed by Brian Kidd MD 09/30/2019 06:44 P
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
[2019-09-30] MEDS ORDERED: MAALOX 30 ML SUSP *UDC PO PRN (19:45)
[2019-09-30] MEDS ORDERED: ALBUTEROL SULFATE 2.5 MG/0.5 ML INH NEB SOLN NEB PRN (19:45)
[2019-09-30] MEDS: IPRATROPIUM 0.5MG/ALBUTEROL 2.5MG INH SOL UD 3ML (DUONEB)(J7620) NEB SCH (20:18)
[2019-09-30] MEDS: DOCUSATE SODIUM 100 MG CAP PO SCH (20:18)
[2019-09-30] MEDS ORDERED: guaiFENesin ER 600 MG TAB PO PRN (22:15)
--- NOTE | 2019-10-01 01:00 | ECGEPIP ---
[facility] - ED Test Date: 2019-09-30 Pat Name: ABI DAMIAN Department: Room: - Gender: Female Family Support Specialist: jame : 1945 Requested By: ERNESTO Parker Order Number: [id number] Reading MD: Ernesto Jeter Measurements Intervals [place] Rate: 66 P: 47 CA: 146 QRS: 11 QRSD: 87 T: 43 QT: 394 QTc: 413 Interpretive Statements SINUS RHYTHM Nonspecific T wave abnormality Baseline artifact Electronically Signed on 10-01-2019 1:00:23 EST by Ernesto Jeter
[2019-10-01] MEDS: GABAPENTIN 300 MG CAP PO SCH ×4 (01:13→22:00)
[2019-10-01] MEDS: BENZONATATE 100 MG CAP PO SCH ×4 (01:13→22:00)
[2019-10-01] MEDS: rOPINIRole 2MG TAB PO SCH ×2 (01:30→22:00)
[2019-10-01 01:46] VITALS: BP 115/61
[2019-10-01] MEDS: IPRATROPIUM 0.5MG/ALBUTEROL 2.5MG INH SOL UD 3ML (DUONEB)(J7620) NEB SCH ×2 (02:00→05:51)
[2019-10-01 06:00] VITALS: BP 116/66
[2019-10-01 06:28] LABS: HEMATOCRIT 44.9 % (36.0-47.0); HEMOGLOBIN 14.2 g/dl (12.0-15.5); MEAN CORPUSCULAR HEMOGLOBIN 30.2 pg (27.0-33.0); MEAN CORPUSCULAR HGB CONC 31.6 g/dl (32.0-36.5); MEAN CORPUSCULAR VOLUME 95.5 fl (80.0-96.0); PLATELET COUNT, AUTOMATED 249 10^3/uL (150-450); WHITE BLOOD COUNT 6.7 10^3/uL (4.0-10.0)
[2019-10-01 06:49] LABS: CALCIUM LEVEL 9.6 MG/DL (8.8-10.2); CREATININE FOR GFR 1.35 MG/DL (0.55-1.30); MAGNESIUM LEVEL 2.1 MG/DL (1.8-2.4); POTASSIUM SERUM 4.2 MEQ/L (3.5-5.1)
[2019-10-01] MEDS ORDERED: FUROSEMIDE 40 MG TAB PO SCH (09:00)
[2019-10-01] MEDS ORDERED: PANTOPRAZOLE 40MG TAB (PROTONIX) PO SCH (09:00)
[2019-10-01] MEDS ORDERED: OMEPRAZOLE 20 MG CAP PO SCH (09:00)
[2019-10-01] MEDS ORDERED: predniSONE 20 MG TAB PO SCH (09:00)
[2019-10-01] MEDS ORDERED: LISINOPRIL *2.5 MG* TAB PO SCH (09:00)
[2019-10-01] MEDS: ATORVASTATIN 20 MG TAB PO SCH (09:31)
[2019-10-01] MEDS: MOM 30ML SUSPENSION UDC PO PRN (09:31)
[2019-10-01] MEDS: DOCUSATE SODIUM 100 MG CAP PO SCH ×2 (09:31→22:00)
[2019-10-01] MEDS: FLUoxetine 10 MG CAP PO SCH (09:31)
[2019-10-01] MEDS: PANTOPRAZOLE 40MG TAB (PROTONIX) PO SCH (09:32)
[2019-10-01] MEDS: ENOXAPARIN 40 MG/0.4 ML SYRINGE (J1650) SC SCH (09:32)
[2019-10-01] MEDS: METOPROLOL SUCC *XL* 25MG TAB (TopROL *XL*) PO SCH (09:34)
[2019-10-01] MEDS: buPROPion **XL** TABLET 150MG (WELLBUTRIN XL) PO SCH (09:35)
[2019-10-01] MEDS ORDERED: LEVALBUTEROL 1.25 MG/0.5 ML CONCENTRATE NEB INH PRN (10:30)
[2019-10-01] MEDS ORDERED: ALPRAZolam 0.25 MG TAB PO ONE (10:30)
[2019-10-01] MEDS: LEVALBUTEROL 1.25 MG/0.5 ML CONCENTRATE NEB INH SCH ×4 (12:26→23:09)
[2019-10-01] MEDS: methylPREDNISolone INJ 125 MG/2 ML VIAL (J2930) IV SCH ×3 (12:41→22:01)
[2019-10-01 14:00] VITALS: BP 124/65
[2019-10-01 22:00] VITALS: BP 130/74
[2019-10-01] MEDS: ACETAMINOPHEN TAB 650MG DOSE (2X325MG) PO PRN (22:43)
[2019-10-02] MEDS: LEVALBUTEROL 1.25 MG/0.5 ML CONCENTRATE NEB INH SCH ×5 (03:42→20:48)
[2019-10-02 06:00] VITALS: BP 128/70
[2019-10-02] MEDS: methylPREDNISolone INJ 125 MG/2 ML VIAL (J2930) IV SCH ×4 (06:19→22:31)
[2019-10-02] MEDS: BENZONATATE 100 MG CAP PO SCH ×3 (06:19→21:25)
[2019-10-02 06:37] LABS: HEMOGLOBIN A1c 6.4 %
--- NOTE | 2019-10-02 08:48 | IPN ---
DATE OF SERVICE: 10/01/2019 She still complains of shortness of breath, only slightly improved and cough productive of white sputum, afebrile, no chills, very anxious due to concerns about her . Temperature 97.8, pulse 78, respiratory rate 18, blood pressure 116/66, 93% on 3 liters nasal cannula. Generally, the patient is awake, alert and oriented to person, place and time. Able to speak in full sentences. No conversational dyspnea. No jugular venous distention (JVD). No thyromegaly. Lungs diminished with bilateral prolonged expiration and expiratory wheezing. Heart: S1 and S2. Sinus rhythm. No murmurs, rubs or gallops. Abdomen: Obese. Soft. Nontender. Nondistended. Extremities: Positive pitting edema. Laboratory Data: White count 6.7, hemoglobin 14, hematocrit 44 and platelet count 249. Sodium 137, potassium 4.2, chloride 102, bicarbonate 25, BUN 28, creatinine 1.35, glucose 149. ASSESSMENT AND PLAN: This is a 73-year-old female with history of hypertension, chronic diastolic failure, reflux, chronic obstructive pulmonary disease (COPD), breast cancer status post mastectomy, appendectomy, obstructive sleep apnea, and chronic kidney disease (CKD) who presented with worsening shortness of breath and admitted for the following issues. 1. Acute COPD exacerbation. Currently on Solu-Medrol, nebulizer treatments and supplemental oxygen. 2. Chronic diastolic heart failure. On lisinopril, metoprolol and Lasix home dose. 3. Reflux. On Prilosec. 4. BOOM. On C-PAP. 5. Anxiety. One dose of Xanax. 6. CKD 3 at baseline. 7. Morbid obesity complicating her care.
[2019-10-02 09:28] VITALS: BP 134/81
[2019-10-02] MEDS: ENOXAPARIN 40 MG/0.4 ML SYRINGE (J1650) SC SCH (09:30)
[2019-10-02] MEDS: ACETAMINOPHEN TAB 650MG DOSE (2X325MG) PO PRN ×2 (09:30→22:31)
[2019-10-02] MEDS: buPROPion **XL** TABLET 150MG (WELLBUTRIN XL) PO SCH (09:30)
[2019-10-02] MEDS: DOCUSATE SODIUM 100 MG CAP PO SCH ×2 (09:30→21:26)
[2019-10-02] MEDS: PANTOPRAZOLE 40MG TAB (PROTONIX) PO SCH (09:31)
[2019-10-02] MEDS: FLUoxetine 10 MG CAP PO SCH (09:31)
[2019-10-02] MEDS: ATORVASTATIN 20 MG TAB PO SCH (09:31)
[2019-10-02] MEDS: GABAPENTIN 300 MG CAP PO SCH ×3 (09:31→21:26)
[2019-10-02] MEDS: METOPROLOL SUCC *XL* 25MG TAB (TopROL *XL*) PO SCH (09:31)
--- NOTE | 2019-10-02 11:15 | IPN ---
DATE: 10/02/2019 Savanna is seen on 4 pavilion rounding for the hospitalist. Her primary care provider is in [place], [place]. She is admitted with acute chronic obstructive pulmonary disease (COPD) exacerbation. She has history of chronic diastolic heart failure. She has been retaining fluid. She has increasing lower extremity edema in the legs and also feels it in her abdomen, which often precedes an episode of congestive heart failure per patient. She also has some chronic leg pains that sound neuropathic and takes gabapentin, which she would like to try a higher dose while in hospital as well. She has history of obstructive sleep apnea (BOOM) on continuous positive airway pressure (CPAP), chronic anxiety, stage III chronic kidney disease and morbid obesity. She has had a net positive of 2 liters over the last 2 days. Her blood pressure (BP) is 131/84, pulse 94, oxygen saturation 92% on 2 liters. General appearance - lying in bed, morbidly obese, visiting with family members. No jugular venous distention (JVD). Lungs decreased breath sounds. Heart regular rate and rhythm. Abdomen soft, obese, nontender. 1+ peripheral edema. Labs: Did not have any lab work ordered for today. IMPRESSION: 1. Chronic obstructive pulmonary disease exacerbation. She was put back on IV steroids yesterday. We will probably put her on oral prednisone tomorrow. Continue nebulized bronchodilator. No infiltrate on the x-ray. I do not think there is a need for antibiotics at this point. 2. Diastolic congestive heart failure. Start IV Lasix 40 mg every 12 hours. Daily labs have been ordered. 3. Neuropathic pain in legs. Increase gabapentin to 600 mg three times a day. 4. Hypertensive heart disease. Continue her current dose of metoprolol. 5. Hyperlipidemia. Continue atorvastatin 40 mg daily. 6. History of anxiety/depression. Continue her Wellbutrin XL 150 mg daily, fluoxetine 10 mg daily. 7. Lower extremity edema. Apparently they were planning on a bilateral ultrasound of the lower extremities to be done today. I do not see an order for it. So, we did put an order in to have that done.
[2019-10-02 11:31] VITALS: BP 126/64
[2019-10-02] MEDS: FUROSEMIDE 40 MG/4 ML VIAL (J1940) IV SCH ×2 (11:32→17:12)
--- NOTE | 2019-10-02 15:37 | REP ---
Bilateral upper extremity duplex Doppler venous ultrasound. Real time compression and duplex Doppler evaluation of the bilateral upper extremity deep venous system is performed. The bilateral subclavian, jugular, axillary, brachial, basilic and cephalic veins are fully compressible where accessible with transducer pressure, and demonstrate no intraluminal thrombus and normal venous waveforms. There is no evidence of deep venous thrombosis. Impression: No evidence of deep venous thrombosis of the bilateral upper extremity deep vein system. Electronically Signed by Hu Pratt MD 10/02/2019 03:28 P
[2019-10-02 17:19] VITALS: BP 127/60
--- NOTE | 2019-10-02 19:33 | REPVR ---
PROCEDURE INFORMATION: Exam: US Duplex Lower Extremity Veins Exam date and time: 10/02/2019 7:06 PM Age: 73 years old Clinical indication: Edema, localized; Lower extremity, bilateral TECHNIQUE: Imaging protocol: Real-time duplex ultrasound of the Lower Extremities with 2-D dixon scale, color Doppler flow and spectral waveform analysis with image documentation. Complete exam focused on the bilateral lower extremity veins. COMPARISON: No relevant prior studies available. FINDINGS: Right deep veins: Unremarkable. The common femoral, femoral and popliteal veins are patent without thrombus. Normal Doppler waveforms. Normal compressibility and/or augmentation response. Right superficial veins: Saphenofemoral junction is patent without thrombus. Left deep veins: Unremarkable. The common femoral, femoral and popliteal veins are patent without thrombus. Normal Doppler waveforms. Normal compressibility and/or augmentation response. Left superficial veins: Saphenofemoral junction is patent without thrombus. Soft tissues: Unremarkable. IMPRESSION: No sonographic evidence of deep vein thrombosis. Electronically signed by: Ovidio Luong On 10/02/2019 19:33:18 PM
[2019-10-02 19:46] LABS: APPEARANCE, URINE CLEAR (CLEAR); BACTERIA, URINE AUTO NEGATIVE (NEGATIVE); BILIRUBIN, URINE AUTO NEGATIVE (NEGATIVE); BLOOD, URINE BLOOD NEGATIVE (NEGATIVE); COLOR, URINE COLORLESS (YELLOW); GLUCOSE, URINE (UA) AUTO NEGATIVE (NEGATIVE); KETONE, URINE AUTO NEGATIVE (NEGATIVE); LEUKOCYTE ESTERASE, URINE AUTO NEGATIVE (NEGATIVE); NITRITE, URINE AUTO NEGATIVE (NEGATIVE); PROTEIN, URINE AUTO NEGATIVE (NEGATIVE); RBC, URINE AUTO 0 /HPF (0-3); SPECIFIC GRAVITY URINE AUTO 1.005 (1.002-1.035); SQUAMOUS EPITHELIAL CELL UR AU 0 /HPF (0-6); UROBILINOGEN, URINE AUTO 0.2 mg/dL (0.0-2.0); WBC, URINE AUTO 0 /HPF (0-3)
[2019-10-02] MEDS: rOPINIRole 2MG TAB PO SCH (21:25)
[2019-10-02 22:00] VITALS: BP 125/65
[2019-10-03] MEDS: LEVALBUTEROL 1.25 MG/0.5 ML CONCENTRATE NEB INH SCH ×7 (04:00→23:24)
[2019-10-03] MEDS: methylPREDNISolone INJ 125 MG/2 ML VIAL (J2930) IV SCH ×2 (05:17→10:05)
[2019-10-03] MEDS: BENZONATATE 100 MG CAP PO SCH ×3 (05:17→21:03)
[2019-10-03 06:00] VITALS: BP 139/79
[2019-10-03 06:02] LABS: HEMOGLOBIN 13.8 g/dl (12.0-15.5); MEAN CORPUSCULAR HEMOGLOBIN 30.1 pg (27.0-33.0); MEAN CORPUSCULAR HGB CONC 31.4 g/dl (32.0-36.5); MEAN CORPUSCULAR VOLUME 96.1 fl (80.0-96.0); PLATELET COUNT, AUTOMATED 245 10^3/uL (150-450); RED BLOOD COUNT 4.58 10^6/uL (4.00-5.40); WHITE BLOOD COUNT 11.3 10^3/uL (4.0-10.0)
[2019-10-03 06:25] LABS: CALCIUM LEVEL 9.6 MG/DL (8.8-10.2); CREATININE FOR GFR 1.32 MG/DL (0.55-1.30); GLOMERULAR FILTRATION RATE 42.1 (>39); MAGNESIUM LEVEL 2.4 MG/DL (1.8-2.4); POTASSIUM SERUM 4.4 MEQ/L (3.5-5.1)
[2019-10-03] MEDS: ENOXAPARIN 40 MG/0.4 ML SYRINGE (J1650) SC SCH (08:27)
[2019-10-03] MEDS: FUROSEMIDE 40 MG/4 ML VIAL (J1940) IV SCH (08:27)
[2019-10-03] MEDS: buPROPion **XL** TABLET 150MG (WELLBUTRIN XL) PO SCH (08:28)
[2019-10-03] MEDS: GABAPENTIN 300 MG CAP PO SCH ×3 (08:28→20:52)
[2019-10-03] MEDS: ATORVASTATIN 20 MG TAB PO SCH (08:28)
[2019-10-03] MEDS: PANTOPRAZOLE 40MG TAB (PROTONIX) PO SCH (08:28)
[2019-10-03] MEDS: FLUoxetine 10 MG CAP PO SCH (08:28)
[2019-10-03] MEDS: DOCUSATE SODIUM 100 MG CAP PO SCH ×2 (08:28→20:52)
[2019-10-03] MEDS: METOPROLOL SUCC *XL* 25MG TAB (TopROL *XL*) PO SCH (08:29)
[2019-10-03] MEDS: MOM 30ML SUSPENSION UDC PO PRN (09:43)
[2019-10-03] MEDS: ACETAMINOPHEN TAB 650MG DOSE (2X325MG) PO PRN (10:32)
--- NOTE | 2019-10-03 13:01 | IPN ---
DATE: 10/03/2019 Savanna really did not have much of a diuresis at all with the intravenous diuretic. She still has significant edema of her legs and also some abdominal edema that she experiences when she is developing some volume overload. She did have some right sided axillary pain today that she woke up with. PHYSICAL EXAMINATION: 134/81. Pulse 78. Afebrile. She is alert, conversant, visiting with family, in no distress. She is tender to palpate over her pectoral muscle on the insertion into the right axilla, reproduces her pain. No redness. No skin lesion. Lungs clear. Heart: Regular rhythm. Abdomen: Soft. Nontender. 1+ peripheral edema. LABS: CBC and BMP unremarkable. IMPRESSION: 1. Chronic obstructive pulmonary disease exacerbation. Will put her on oral steroids. Continue antibiotics and bronchodilator. 2. Diastolic congestive heart failure. Increase IV diuretics, put her on fluid restriction. She should get a liter or two off before she is ready for discharge. 3. Hypertension. Stable. 4. Musculoskeletal right sided pain. Heating pad would be appropriate. Reassurance provided.
[2019-10-03 14:00] VITALS: BP 102/66
[2019-10-03] MEDS: FUROSEMIDE 100 MG/10 ML VIAL (J1940) IV SCH (16:10)
[2019-10-03] MEDS: rOPINIRole 2MG TAB PO SCH (20:52)
[2019-10-03] MEDS: predniSONE 20 MG TAB PO SCH (20:52)
[2019-10-03 22:00] VITALS: BP 136/69
[2019-10-04] MEDS: LEVALBUTEROL 1.25 MG/0.5 ML CONCENTRATE NEB INH SCH ×3 (04:47→11:34)
[2019-10-04] MEDS: ACETAMINOPHEN TAB 650MG DOSE (2X325MG) PO PRN (05:07)
[2019-10-04] MEDS: BENZONATATE 100 MG CAP PO SCH (05:08)
[2019-10-04 06:00] VITALS: BP 121/75
[2019-10-04 06:09] LABS: HEMATOCRIT 43.2 % (36.0-47.0); HEMOGLOBIN 14.1 g/dl (12.0-15.5); MEAN CORPUSCULAR HEMOGLOBIN 31.1 pg (27.0-33.0); MEAN CORPUSCULAR HGB CONC 32.6 g/dl (32.0-36.5); MEAN CORPUSCULAR VOLUME 95.4 fl (80.0-96.0); PLATELET COUNT, AUTOMATED 234 10^3/uL (150-450); RED BLOOD COUNT 4.53 10^6/uL (4.00-5.40); WHITE BLOOD COUNT 9.2 10^3/uL (4.0-10.0)
[2019-10-04 06:35] LABS: CALCIUM LEVEL 9.4 MG/DL (8.8-10.2); CREATININE FOR GFR 1.54 MG/DL (0.55-1.30); GLOMERULAR FILTRATION RATE 35.3 (>39); MAGNESIUM LEVEL 2.4 MG/DL (1.8-2.4); POTASSIUM SERUM 4.2 MEQ/L (3.5-5.1)
[2019-10-04] MEDS: predniSONE 20 MG TAB PO SCH (08:39)
[2019-10-04] MEDS: ENOXAPARIN 40 MG/0.4 ML SYRINGE (J1650) SC SCH (08:39)
[2019-10-04] MEDS: FLUoxetine 10 MG CAP PO SCH (08:39)
[2019-10-04] MEDS: FUROSEMIDE 100 MG/10 ML VIAL (J1940) IV SCH (08:39)
[2019-10-04 08:40] VITALS: BP 130/62
[2019-10-04] MEDS: DOCUSATE SODIUM 100 MG CAP PO SCH (08:40)
[2019-10-04] MEDS: GABAPENTIN 300 MG CAP PO SCH (08:40)
[2019-10-04] MEDS: PANTOPRAZOLE 40MG TAB (PROTONIX) PO SCH (08:40)
[2019-10-04] MEDS: METOPROLOL SUCC *XL* 25MG TAB (TopROL *XL*) PO SCH (08:40)
[2019-10-04] MEDS: buPROPion **XL** TABLET 150MG (WELLBUTRIN XL) PO SCH (08:40)
[2019-10-04] MEDS: ATORVASTATIN 20 MG TAB PO SCH (08:40)
[2019-10-04] MEDS: MOM 30ML SUSPENSION UDC PO PRN (08:47)
[2019-10-04] MEDS ORDERED: GABA-843 PO (10:16)
[2019-10-04] MEDS ORDERED: PRED20TA PO (10:16)
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
== END 2019-10-04 13:14 | disposition home or self-care (01) | DRG 191 ==
LOC: M ED 14:36 → M ED INP 19:31 → ENRESERV 10-01 00:49 → M MSPAV 10-01 00:57
PROVIDERS: ADMIT Internal Medicine; ATTEND Family Medicine
DX: J44.1 Chronic obstructive pulmonary disease with (acute) exacerbation (principal); I50.32 Chronic diastolic (congestive) heart failure; I13.0 Hypertensive heart and chronic kidney disease with heart failure and stage 1 through stage 4 chronic kidney disease, or unspecified chronic kidney disease; Z68.41 Body mass index [BMI] 40.0-44.9, adult; J96.11 Chronic respiratory failure with hypoxia; Z68.44 Body mass index [BMI] 60.0-69.9, adult; N18.3 Chronic kidney disease, stage 3 (moderate); E66.01 Morbid (severe) obesity due to excess calories; G47.33 Obstructive sleep apnea (adult) (pediatric); Z79.899 Other long term (current) drug therapy; K21.9 Gastro-esophageal reflux disease without esophagitis; Z85.3 Personal history of malignant neoplasm of breast; Z87.891 Personal history of nicotine dependence; E78.5 Hyperlipidemia, unspecified; G62.9 Polyneuropathy, unspecified; F41.9 Anxiety disorder, unspecified; F32.9 Major depressive disorder, single episode, unspecified

== ENCOUNTER → 2019-11-06 | Outpatient (CLI) | payer MEDICARE, MEDICAID ==
[~2019-11-06] MED LIST changes: +ATOR40TA75 PO; +LISI-1046 PO; +MUCI1TAB16 PO; +PRED20TA PO
--- NOTE | 2019-11-06 20:11 | REP ---
LIMITED PELVIC ULTRASOUND (BLADDER): 11/06/2019. Clinical history: Chronic kidney disease stage III. Findings: Bladder wall thickness is 2.6 mm. Ureteral jets are not observed bilaterally. The prevoid measurement is 15.4 x 8.9 x 7.6 cm giving calculated volume of 680 mL. Postvoid measurements are 4.7 x 5.7 x 2.4 cm giving calculated volume of 42 mL. This is a 6% postvoid residual. There is no stone, sludge, ureterocele or diverticulum. Impression: 1. Postvoid bladder volume 6% of the prevoid volume which was 680 mL. 2. No ureteral jets were observed during this examination. No bladder stone, ureterocele, diverticulum or other acute finding. Electronically Signed by Miguelito Mendoza MD 11/07/2019 08:06 A
--- NOTE | 2019-11-07 03:20 | REP ---
Clinical: Chronic renal disease stage III. Technique: Real time dixon scale ultrasound examination using curved array transducer. Findings: The bilateral kidneys are normal in size and reniform shape with increased central sinus fat and mildly increased parenchymal echo texture. No hydronephrosis, nephrolithiasis, cystic or renal mass lesion identified. Right kidney measures 11.2 x 4.7 x 4.4 cm. Left kidney measures 10.8 x 4.4 x 5.0 cm. Impression: Findings consistent with chronic medical renal disease. Electronically Signed by Calvin Ballard MD 11/07/2019 03:11 A
== END ==
LOC: M RAD 12:04
PROVIDERS: ATTEND Internal Medicine Nephrology
DX: I13.0 Hypertensive heart and chronic kidney disease with heart failure and stage 1 through stage 4 chronic kidney disease, or unspecified chronic kidney disease (principal); I50.32 Chronic diastolic (congestive) heart failure; N18.3 Chronic kidney disease, stage 3 (moderate)

== ENCOUNTER → 2019-11-06 | Outpatient (CLI) | payer MEDICARE, MEDICAID ==
[2019-11-06 14:33] LABS: BASO # 0.1 10^3/uL (0.0-0.2); BASO % 0.8 % (0.0-1.0); EOS # 0.1 10^3/uL (0.0-0.5); EOS % 1.6 % (0.0-3.0); HEMOGLOBIN 13.8 g/dl (12.0-15.5); LYMPH # 1.7 10^3/uL (1.5-5.0); LYMPH % 26.9 % (24.0-44.0); MEAN CORPUSCULAR HEMOGLOBIN 31.4 pg (27.0-33.0); MEAN CORPUSCULAR HGB CONC 32.9 g/dl (32.0-36.5); MEAN CORPUSCULAR VOLUME 95.5 fl (80.0-96.0); MONO # 0.8 10^3/uL (0.0-0.8); MONO % 12.9 % (0.0-5.0); NEUTROPHILS # 3.5 10^3/uL (1.5-8.5); NEUTROPHILS % 56.4 % (36.0-66.0); PLATELET COUNT, AUTOMATED 270 10^3/uL (150-450); WHITE BLOOD COUNT 6.2 10^3/uL (4.0-10.0)
[2019-11-06 14:59] LABS: ALBUMIN 3.7 GM/DL (3.2-5.2); BILIRUBIN,TOTAL 0.7 MG/DL (0.2-1.0); CALCIUM LEVEL 9.2 MG/DL (8.8-10.2); CREATININE FOR GFR 1.62 MG/DL (0.55-1.30); GLOMERULAR FILTRATION RATE 33.3 (>39); POTASSIUM SERUM 3.9 MEQ/L (3.5-5.1); TOTAL PROTEIN 7.2 GM/DL (6.4-8.2)
--- NOTE | 2019-11-07 02:36 | REP ---
Clinical: Back pain. History of hypertension. Technique: AP, lateral views of the thoracic spine. Findings: Generalized age-related changes and osteopenia noted. Findings include minimal endplate sclerosis with marginal spurring with few bridging osteophytes. No acute fracture / compression injury or subluxation. Impression: Osteopenia and generalized age-related degenerative changes. Electronically Signed by Calvin Ballard MD 11/07/2019 02:28 A
--- NOTE | 2019-11-07 02:40 | REP ---
Clinical: Neck pain. Technique: AP, lateral, swimmers and open-mouth views of the cervical spine. Findings: Generalized age-related osteopenia and multilevel degenerative changes are appreciated. Grade 1 anterolisthesis at the C4-5 level noted. Further findings include endplate sclerosis and mild spurring/osteophyte formation. Impression: Grade 1 anterolisthesis at C4-5. Generalized osteopenia and multilevel age-related changes. Electronically Signed by Calvin Ballard MD 11/07/2019 02:32 A
== END ==
LOC: M LAB 12:15
PROVIDERS: ATTEND Nurse Practitioner Family
DX: M85.88 Other specified disorders of bone density and structure, other site (principal); I13.0 Hypertensive heart and chronic kidney disease with heart failure and stage 1 through stage 4 chronic kidney disease, or unspecified chronic kidney disease; I50.32 Chronic diastolic (congestive) heart failure; N18.3 Chronic kidney disease, stage 3 (moderate)

== ENCOUNTER 2019-11-19 15:52 | Inpatient (IN) | payer MEDICAID, MEDICARE ==
[~2019-11-19] VITALS: Ht 167.6 cm; Wt 127.6 kg
[2019-11-19] MEDS ORDERED: SPIR-10 PO (16:57)
[2019-11-19] MEDS ORDERED: TORS100T PO (16:57)
[2019-11-19] MEDS ORDERED: ZYLO300T6 PO (16:57)
[2019-11-19] MEDS ORDERED: IPRATROPIUM 0.5MG/ALBUTEROL 2.5MG INH SOL UD 3ML (DUONEB)(J7620) NEB PRN ×2 (17:00→21:15)
[2019-11-19 17:08] LABS: BASO # 0.1 10^3/uL (0.0-0.2); BASO % 0.7 % (0.0-1.0); EOS # 0.2 10^3/uL (0.0-0.5); EOS % 2.9 % (0.0-3.0); HEMATOCRIT 41.6 % (36.0-47.0); HEMOGLOBIN 13.3 g/dl (12.0-15.5); LYMPH # 1.9 10^3/uL (1.5-5.0); LYMPH % 25.4 % (24.0-44.0); MEAN CORPUSCULAR HEMOGLOBIN 31.5 pg (27.0-33.0); MEAN CORPUSCULAR VOLUME 98.6 fl (80.0-96.0); MONO # 0.6 10^3/uL (0.0-0.8); MONO % 8.8 % (0.0-5.0); NEUTROPHILS # 4.5 10^3/uL (1.5-8.5); NEUTROPHILS % 61.1 % (36.0-66.0); PLATELET COUNT, AUTOMATED 240 10^3/uL (150-450); RED BLOOD COUNT 4.22 10^6/uL (4.00-5.40); WHITE BLOOD COUNT 7.3 10^3/uL (4.0-10.0)
[2019-11-19 17:18] LABS: INR 0.96; PROTHROMBIN TIME 12.5 SECONDS (11.8-14.0)
--- NOTE | 2019-11-19 17:26 | REP ---
Portable chest, 05:04 p.m., single AP view the patient upright: Comparisons are the chest CT of 07/27/2019 and portable chest of 09/30/2019. On the comparison chest CT there is a large epicardial fat pad, particularly on the right. This artifactually accentuates cardiac size on plain films. The visualized lung coppola are clear. The napoleon, mediastinum, skeletal structures are unremarkable. Impression: No definite acute cardiopulmonary findings. The large epicardial fat pad artifactually accentuates cardiac size. Electronically Signed by Hu Quispe MD 11/19/2019 05:18 P
[2019-11-19 17:32] LABS: ALBUMIN 3.4 GM/DL (3.2-5.2); ALT/SGPT 69 U/L (12-78); BILIRUBIN,DIRECT 0.2 MG/DL (0.0-0.2); BILIRUBIN,TOTAL 0.4 MG/DL (0.2-1.0); BLOOD UREA NITROGEN 26 MG/DL (7-18); CALCIUM LEVEL 8.7 MG/DL (8.8-10.2); CARBON DIOXIDE LEVEL 31 MEQ/L (21-32); CHLORIDE LEVEL 100 MEQ/L (98-107); CK-MB VALUE MASS < 1.0 NG/ML (<3.6); CPK CREATINE PHOSPHOKINASE 74 U/L (26-192); CREATININE FOR GFR 1.68 MG/DL (0.55-1.30); GLOMERULAR FILTRATION RATE 31.9 (>39); GLUCOSE, FASTING 90 MG/DL (70-100); MB/CK RELATIVE INDEX 1.35 (< OR =4); NT-PRO BNP 73 PG/ML (<125); POTASSIUM SERUM 4.3 MEQ/L (3.5-5.1); SODIUM LEVEL 139 MEQ/L (136-145); THYROXINE (T4) 10.1 UG/DL (4.5-12.0); TOTAL PROTEIN 7.1 GM/DL (6.4-8.2); TROPONIN I < 0.02 NG/ML (< 0.10)
--- NOTE | 2019-11-19 19:08 | REPVR ---
PROCEDURE INFORMATION: Exam: CT Chest Without Contrast Exam date and time: 11/19/2019 6:00 PM Age: 73 years old Clinical indication: Shortness of breath TECHNIQUE: Imaging protocol: Computed tomography of the chest without contrast. Radiation optimization: All CT scans at this facility use at least one of these dose optimization techniques: automated exposure control; mA and/or kV adjustment per patient size (includes targeted exams where dose is matched to clinical indication); or iterative reconstruction. COMPARISON: CT ANGIO CHEST 07/27/2019 7:25 PM FINDINGS: Lungs: Moderate paraseptal and centrilobular emphysema most pronounced in the upper lung zones bilaterally. Atelectasis right middle and right lower lobe. Pleural space: Bilateral apical pleural parenchymal scarring. Heart: There is mild atherosclerotic calcification of the coronary arteries. Mediastinum: A small hiatal hernia is present. Aorta: The aorta demonstrates mild atherosclerotic calcification. Lymph nodes: Unremarkable. No enlarged lymph nodes. Bones/joints: The spine demonstrates mild degenerative changes. Osteoporosis. Soft tissues: Unremarkable. IMPRESSION: 1. Moderate paraseptal and centrilobular emphysema most pronounced in the upper lung zones bilaterally. 2. A small hiatal hernia is present. 3. No acute pulmonary parenchymal abnormalities. Electronically signed by: Santos Monsivais On 11/19/2019 19:08:03 PM
--- NOTE | 2019-11-19 19:10 | REPVR ---
PROCEDURE INFORMATION: Exam: CT Abdomen And Pelvis Without Contrast Exam date and time: 11/19/2019 6:00 PM Age: 73 years old Clinical indication: Bloating; Additional info: Abdominal distention, shortness of breath TECHNIQUE: Imaging protocol: Computed tomography of the abdomen and pelvis without contrast. Radiation optimization: All CT scans at this facility use at least one of these dose optimization techniques: automated exposure control; mA and/or kV adjustment per patient size (includes targeted exams where dose is matched to clinical indication); or iterative reconstruction. COMPARISON: BLADDER (LIMITED PELVIC) US 11/06/2019 12:38 PM FINDINGS: Mediastinum: A small hiatal hernia is present. Liver: Normal. No mass. Gallbladder and bile ducts: The gallbladder is incompletely distended. This is most likely related to incomplete fasting. Clinical correlation to exclude gallbladder pathology suggested. Pancreas: Normal. No ductal dilation. Spleen: Normal. No splenomegaly. Adrenals: Normal. No mass. Kidneys and ureters: Normal. No hydronephrosis. Stomach and bowel: Unremarkable. No obstruction. No mucosal thickening. Appendix: No evidence of appendicitis. Intraperitoneal space: Unremarkable. No free air. No significant fluid collection. Vasculature: The aorta demonstrates mild atherosclerotic calcification. Lymph nodes: Unremarkable. No enlarged lymph nodes. Bladder: Unremarkable as visualized. Reproductive: Unremarkable as visualized. Bones/joints: Moderate central spinal stenosis L2-L3, moderate to severe central sinus stenosis L3-L4 and L4-L5. Soft tissues: Unremarkable. IMPRESSION: 1. The gallbladder is incompletely distended. This is most likely related to incomplete fasting. Clinical correlation to exclude gallbladder pathology suggested. 2. A small hiatal hernia is present. 3. Multilevel spinal stenosis as described above. Electronically signed by: Santos Monsivais On 11/19/2019 19:10:34 PM
--- NOTE | 2019-11-19 19:19 | ECGEPIP ---
[facility] - ED Test Date: 2019-11-19 Pat Name: ABI DAMIAN Department: Room: - Gender: Female Cut Out Press Operator: : 1945 Requested By: ANDREW Parker Order Number: [id number] Reading MD: Lila Miller Measurements Intervals [place] Rate: 64 P: 52 RI: 173 QRS: 34 QRSD: 83 T: 59 QT: 411 QTc: 425 Interpretive Statements SINUS RHYTHM NSTTW abnormalities SIMILAR 09/30/19 Electronically Signed on 11-19-2019 19:19:06 EST by Lila Miller
[2019-11-19] MEDS ORDERED: NS 1,000 ML IV SCH (20:00)
[2019-11-19] MEDS ORDERED: GABA600T4 PO (20:04)
[2019-11-19] MEDS ORDERED: AZEL1SPR3 NARES (20:04)
[2019-11-19] MEDS ORDERED: ALBUTEROL 90 MCG/ACT 8GM HFA INHALER INH PRN (21:15)
[2019-11-19] MEDS ORDERED: guaiFENesin ER 600 MG TAB PO PRN (21:15)
[2019-11-19] MEDS ORDERED: PILL CUTTER 1 EACH XX PRN (21:30)
[2019-11-19] MEDS ORDERED: HEPARIN DRIP 25,000 UNITS in IV 1 EA IV SCH (21:35)
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
[2019-11-19] MEDS ORDERED: HEPARIN SOD (PORCINE) 5000 UNITS/ML VIAL (J1644 PER 1000UNITS) IV PRN (21:45)
[2019-11-19] MEDS ORDERED: FUROSEMIDE 100 MG/10 ML VIAL (J1940) IV ONE (21:45)
[2019-11-19] MEDS ORDERED: methylPREDNISolone INJ 40 MG/1 ML VIAL (J2920) IV ONE (21:45)
[2019-11-19 22:01] LABS: HEMATOCRIT 39.4 % (36.0-47.0); HEMOGLOBIN 12.6 g/dl (12.0-15.5); MEAN CORPUSCULAR HEMOGLOBIN 30.8 pg (27.0-33.0); MEAN CORPUSCULAR VOLUME 96.3 fl (80.0-96.0); PLATELET COUNT, AUTOMATED 217 10^3/uL (150-450); RED BLOOD COUNT 4.09 10^6/uL (4.00-5.40); WHITE BLOOD COUNT 7.3 10^3/uL (4.0-10.0)
[2019-11-19 22:17] LABS: D-DIMER QUANT 529.4 ng/ml (<500)
--- NOTE | 2019-11-19 22:47 | REPVR ---
PROCEDURE INFORMATION: Exam: US Duplex Lower Extremity Veins Exam date and time: 11/19/2019 10:42 PM Age: 73 years old Clinical indication: Edema, localized; Lower extremity, bilateral; Additional info: R/O dvt TECHNIQUE: Imaging protocol: Real-time duplex ultrasound of the Lower Extremities with 2-D dixon scale, color Doppler flow and spectral waveform analysis with image documentation. Complete exam focused on the bilateral lower extremity veins. COMPARISON: US Duplex, Ext LOWER veins, bilat 10/02/2019 6:45 PM FINDINGS: Right deep veins: Unremarkable. The common femoral, femoral, proximal profunda femoral and popliteal veins are patent without thrombus. Normal Doppler waveforms. Normal compressibility and/or augmentation response. Right superficial veins: Saphenofemoral junction is patent without thrombus. Left deep veins: Unremarkable. The common femoral, femoral, proximal profunda femoral and popliteal veins are patent without thrombus. Normal Doppler waveforms. Normal compressibility and/or augmentation response. Left superficial veins: Saphenofemoral junction is patent without thrombus. Soft tissues: Lower leg edema. IMPRESSION: Lower leg edema. No DVT. Electronically signed by: Santos Monsivais On 11/19/2019 22:47:18 PM
[2019-11-19] MEDS: rOPINIRole 2MG TAB PO SCH (23:47)
[2019-11-19] MEDS: GABAPENTIN 300 MG CAP PO SCH (23:47)
[2019-11-20 02:39] LABS: APPEARANCE, URINE CLEAR (CLEAR); BACTERIA, URINE AUTO NEGATIVE (NEGATIVE); BILIRUBIN, URINE AUTO NEGATIVE (NEGATIVE); BLOOD, URINE BLOOD NEGATIVE (NEGATIVE); COLOR, URINE YELLOW (YELLOW); GLUCOSE, URINE (UA) AUTO NEGATIVE (NEGATIVE); KETONE, URINE AUTO NEGATIVE (NEGATIVE); LEUKOCYTE ESTERASE, URINE AUTO NEGATIVE (NEGATIVE); NITRITE, URINE AUTO NEGATIVE (NEGATIVE); PROTEIN, URINE AUTO NEGATIVE (NEGATIVE); RBC, URINE AUTO 1 /HPF (0-3); SPECIFIC GRAVITY URINE AUTO 1.006 (1.002-1.035); SQUAMOUS EPITHELIAL CELL UR AU 1 /HPF (0-6); UROBILINOGEN, URINE AUTO 0.2 mg/dL (0.0-2.0); WBC, URINE AUTO 1 /HPF (0-3)
[2019-11-20 02:56] LABS: CREATININE,RANDOM URINE 40.8 MG/DL; SODIUM,RANDOM URINE 86 MEQ/L; UREA NITROGEN RANDOM URINE 208 MG/DL
[2019-11-20] MEDS ORDERED: METAL LOCK LOOP XX ONE (03:31)
[2019-11-20 04:05] LABS: HEMATOCRIT 41.8 % (36.0-47.0); HEMOGLOBIN 13.4 g/dl (12.0-15.5); MEAN CORPUSCULAR HEMOGLOBIN 30.9 pg (27.0-33.0); MEAN CORPUSCULAR HGB CONC 32.1 g/dl (32.0-36.5); MEAN CORPUSCULAR VOLUME 96.5 fl (80.0-96.0); PLATELET COUNT, AUTOMATED 230 10^3/uL (150-450); RED BLOOD COUNT 4.33 10^6/uL (4.00-5.40); WHITE BLOOD COUNT 8.2 10^3/uL (4.0-10.0)
[2019-11-20 04:32] LABS: ALBUMIN 3.5 GM/DL (3.2-5.2); ALT/SGPT 65 U/L (12-78); BILIRUBIN,TOTAL 0.5 MG/DL (0.2-1.0); BLOOD UREA NITROGEN 29 MG/DL (7-18); CALCIUM LEVEL 8.5 MG/DL (8.8-10.2); CARBON DIOXIDE LEVEL 30 MEQ/L (21-32); CHLORIDE LEVEL 101 MEQ/L (98-107); CREATININE FOR GFR 1.68 MG/DL (0.55-1.30); GLOMERULAR FILTRATION RATE 31.9 (>39); GLUCOSE, FASTING 149 MG/DL (70-100); POTASSIUM SERUM 4.4 MEQ/L (3.5-5.1); SODIUM LEVEL 139 MEQ/L (136-145); TOTAL PROTEIN 7.1 GM/DL (6.4-8.2); TROPONIN I < 0.02 NG/ML (< 0.10)
[2019-11-20] MEDS: HEPARIN SOD (PORCINE) 5000 UNITS/ML VIAL (J1644 PER 1000UNITS) SQ SCH ×3 (05:49→22:35)
[2019-11-20] MEDS: buPROPion **XL** TABLET 150MG (WELLBUTRIN XL) PO SCH (07:46)
[2019-11-20] MEDS: OMEPRAZOLE 20 MG CAP PO SCH (07:46)
[2019-11-20] MEDS: FLUoxetine 10 MG CAP PO SCH (07:46)
[2019-11-20] MEDS: AZELASTINE 137MCG NASAL SPY 30 ML (ASTELIN) SCH ×2 (07:46→21:00)
[2019-11-20] MEDS: GABAPENTIN 300 MG CAP PO SCH ×3 (07:46→22:34)
[2019-11-20] MEDS: allopurinoL 300 MG TAB PO SCH (07:47)
[2019-11-20] MEDS: ATORVASTATIN 20 MG TAB PO SCH (07:47)
[2019-11-20] MEDS: METOPROLOL SUCC *XL* 25MG TAB (TopROL *XL*) PO SCH (07:47)
[2019-11-20] MEDS: SPIRONOLACTONE 25 MG TAB PO SCH (07:50)
[2019-11-20] MEDS: IPRATROPIUM 0.5MG/ALBUTEROL 2.5MG INH SOL UD 3ML (DUONEB)(J7620) NEB SCH ×4 (08:00→18:15)
[2019-11-20] MEDS ORDERED: IPRATROPIUM 0.5MG/ALBUTEROL 2.5MG INH SOL UD 3ML (DUONEB)(J7620) NEB PRN (08:45)
[2019-11-20] MEDS ORDERED: TORSEMIDE (DEMADEX) 50 MG PER 1/2 TAB PO SCH (09:00)
[2019-11-20] MEDS ORDERED: ENOXAPARIN 40 MG/0.4 ML SYRINGE (J1650) SC SCH (09:00)
[2019-11-20] MEDS ORDERED: methylPREDNISolone INJ 125 MG/2 ML VIAL (J2930) IV SCH (09:00)
[2019-11-20 10:44] LABS: MAGNESIUM LEVEL 2.2 MG/DL (1.8-2.4)
[2019-11-20] MEDS: FUROSEMIDE 40 MG/4 ML VIAL (J1940) IV SCH ×3 (10:45→22:35)
--- NOTE | 2019-11-20 13:08 | IPN ---
DATE OF SERVICE: 11/20/2019 The patient is seen and examined at the bedside. Chart has been reviewed. The patient was given 200 mg intravenous (IV) Lasix yesterday with output of 300, negative 60 overnight. Current weight is unchanged at 129.09 kg. The patient still complains of shortness of breath, unable to ambulate due to dyspnea on exertion. Sitting at 60 degrees. Able to speak in full sentences. No conversational dyspnea. The patient has no tracheal deviation. Thick neck. Unable to assess for jugular venous distention (JVD). Lungs diminished with faint wheezing, bibasilar crackles. Heart: S1, S2. Regular rate and rhythm. Abdomen: Is obese, soft, nontender. Extremities: 3+ pitting edema to the sacrum. LABORATORY DATA: White count 8.2, hemoglobin 13, hematocrit 41, platelet count 230. Sodium 139, potassium 4.4, chloride 101, bicarbonate 30, BUN 29, creatinine 1.68, glucose of 148, BNP was 73. Respiratory panel was negative. CT chest: With moderate paraseptal and centrilobular emphysema most pronounced in the upper lung zones bilaterally. A small hiatal hernia. No acute pulmonary parenchymal abnormalities. Venous Dopplers bilateral lower extremities: Normal Doppler waveforms on the right without thrombus. Left deep veins without thrombus. Normal Doppler waveforms. Lower extremity edema with no deep venous thrombosis (DVT). MICROBIOLOGY: Respiratory panel negative. CT abdomen and pelvis: Small hiatal hernia, multilevel spinal stenosis as described above. ASSESSMENT AND PLAN: This is a morbidly obese female with body mass index (BMI) of 45.9, end-stage emphysema, chronic obstructive pulmonary disease (COPD), chronic diastolic heart failure, ejection fraction 65% on echocardiogram 07/25/[address] Butler, hypertension, chronic kidney disease (CKD) III, left breast cancer status post mastectomy, reflux, right eye macular degeneration, presented with dyspnea on exertion, then eventually at rest with a 20-pound weight gain since September with a productive cough of yellow sputum and nausea with postnasal drip. The patient complains of some dizziness on ambulation. Previously seen by Dr. Veras in the past. The patient is compliant with her medications and with her bilateral positive airway pressure (BiPAP) and usually follows with Dr. Veras, psychotherapist, Dr. Holloway, timber appraiser, and employment advisor, Dr. Joe. CT chest without contrast shows no pleural effusion of infiltrate consolidation. CT abdomen unremarkable aside from spinal stenosis, chronic changes. Venous Dopplers of bilateral lower extremities are negative for DVT. ACUTE ISSUES: 1. Acute on chronic hypoxic respiratory failure, multifactorial, most likely secondary to obesity hypoventilation syndrome, obstructive sleep apnea, probable pulmonary hypertension, and possible cor. pulmonale with right-sided heart failure. At this time, the patient does not have any signs of infection. She will be treated for COPD exacerbation. Entry Analyst has been consulted for fluid management due to 3+ pitting edema all the way to her sacrum for diuresis in light of chronic kidney disease stage III. 2. Chronic kidney disease stage III. At baseline creatinine currently despite receiving a large dose of Lasix yesterday. Urine output was not very significant. Defer to Dr. Joe for further diuresis. Monitor the patient's creatinine with daily metabolic panel, strict intake and output (I and O). Avoid further nephrotoxic and renally dose all medications. 3. Congestive heart failure. Brain natriuretic peptide (BNP) is not remarkable, but the patient did have a 20-pound weight gain in the past. Will continue strict I and O, daily weights. Defer diuresis to Dr. Joe. Acute decompensated. Strict I and O, daily weights, fluid restriction. Diuresis currently with Lasix 40 intravenous (IV) every 6 hours along with daily weights, strict I and O. Pendleton catheter placed for critical patient monitoring. 4. History of left breast cancer, status post mastectomy. Outpatient followup. 5. Gout. Continue on allopurinol. 6. Dyslipidemia. On chronic Lipitor. 7. Depression. On Prozac. 8. Hypertension. On Toprol XL. 9. Chronic obstructive pulmonary disease, most likely with exacerbation with bilateral wheezing and cor. pulmonale. Recheck pulmonary pressures on echocardiogram. Continue Solu-Medrol, nebulizers. No empiric antibiotics. There are no signs of infection. Continue four times a day nebulizers and every 2 hours as needed. 10. Restless legs. On chronic ropinirole. 11. Neuropathy. On Neurontin. 12. Morbid obesity. BMI 45.9 complicating her care. Most likely contributing to chronic dyspnea. 13. Obstructive sleep apnea (BOOM). Resume home bilateral positive airway pressure (BiPAP). MTDD
[2019-11-20 13:10] VITALS: BP 123/88
--- NOTE | 2019-11-20 13:22 | CR ---
DATE OF CONSULTATION: 11/20/2019 REFERRING PHYSICIAN: Dr. Krysta Barakat REASON FOR CONSULTATION: Acute renal failure and congestive heart failure. HISTORY OF PRESENT ILLNESS: Mrs. Callaway is a 73-year-old lady with known history of congestive heart failure, chronic hypertension, chronic obstructive pulmonary disease (COPD), obstructive sleep apnea, chronic kidney disease (CKD) Stage III, and gastroesophageal reflux disease. She presented to the emergency room last evening with progressive shortness of breath over the last few weeks. She reported a weight gain of 20 pounds. She was admitted last evening and given IV Lasix. She is also receiving IV normal saline at 60 mL per hour along with steroids and nebulizers. A nephrology consultation was requested and the patient is seen this morning in the emergency room. PAST MEDICAL AND SURGICAL HISTORY (Significant for): History of congestive heart failure, chronic hypertension, COPD, obstructive sleep apnea, stage III of chronic kidney disease, history of gastroesophageal reflux disease, history of macular degeneration, history of breast cancer, status post left mastectomy PAST SURGICAL HISTORY (Significant for): Appendectomy and left mastectomy. PERSONAL AND SOCIAL HISTORY: The patient is and lives with her four grown children. She quit smoking just a few months ago. FAMILY HISTORY: Significant for breast cancer. ALLERGIES: The patient has NO KNOWN DRUG ALLERGIES. MEDICATIONS: Her home medications include allopurinol 300 mg daily, atorvastatin 40 mg daily, bupropion 150 mg daily, fluoxetine 10 mg daily, Trelegy/Ellipta 100/62.5/25 1 puff daily, gabapentin 600 mg three times a day, metoprolol 25 mg daily, omeprazole 20 mg daily, Requip 4 mg at bedtime, spironolactone 25 mg daily and torsemide 50 mg daily. In addition, she uses albuterol and ipratropium nebulizers as needed. REVIEW OF SYSTEMS: The patient reports a weight gain of 20 pounds and progressive shortness of breath over the last few weeks. She denies any fever or chills. Ears, nose and throat are unremarkable. Cardiovascular system is significant for worsening leg edema and shortness of breath. She has orthopnea and is requiring oxygen. Respiratory system is significant for COPD. She denies any hemoptysis or pleuritic type of chest pain. GI system is negative for nausea or vomiting. She does have history of gastroesophageal reflux disease. system is negative for dysuria or hematuria. She denies any kidney stones or flank pain. Musculoskeletal system is significant for obesity, lower extremity edema and a history of gout. Psychosocial system is negative for depression or anxiety. Neurological system is negative for seizures or stroke. Hematological system is negative for anticoagulation. She denies any easy bruising or excessive bleeding. Skin is negative for rash or ulcers. PHYSICAL EXAMINATION: Morbidly obese elderly lady laying in the bed with head end elevated at about 60 degrees. Temperature is 97.6 degrees Fahrenheit, heart rate 88 per minute and respiratory rate 20 per minute. Blood pressure 112/57 mmHg and oxygen saturation 94% on 2 liters oxygen. Her head is atraumatic. Neck is supple and jugular venous distention (JVD) is markedly elevated. No oral thrush or ulcers noted. Heart sounds are regular and lungs showed diminished breath sounds, bilateral rales and expiratory wheezing. Abdomen: Soft, obese and nontender. Bowel sounds are normal. Extremities without any cyanosis or clubbing. Lower extremity edema is actually 2+. Neurologically, she is awake, alert and oriented times three. LABORATORY DATA: WBC count is 8.2 today, hemoglobin 13.4 and hematocrit 41.8. Platelets 230. Sodium is 139, potassium 4.4, chloride 101, CO2 30, BUN 29 and creatinine 1.68. Glucose 149 and calcium 8.5. Troponin has been less than 0.02 times three. Her chest x-ray, the initial one done in the emergency room showed large epicardial fat pad artifactually accentuates the cardiac size. No pleural effusions or infiltrate noted on the chest CT scan. She also had an abdominal and pelvic CT scan which did not show any hydronephrosis or kidney stones. PROBLEMS: 1. Shortness of breath, most likely this is decompensated congestive heart failure, acute on chronic. She has gained about 20 pounds of weight and has significant peripheral edema. She is receiving IV fluid at present even though she did receive IV Lasix. I am going to stop the IV fluid now and put her on intravenous Lasix 40 mg every 6 hours. We will follow her closely. 2. Acute kidney injury superimposed on chronic kidney disease. Baseline creatinine is about 1.5. Kidney function is slightly worse than her prior baseline. At this point, we will continue to monitor without any intervention. 3. Hypotension. Blood pressure is somewhat on the low side, but she is asymptomatic. She is not on any antihypertensive medications other than the diuretic. At this point, we will continue to monitor closely. 4. COPD. I do not feel that the shortness of breath is related to COPD. I am going to stop her methylprednisone for now. She will continue with her nebulizers. Thank you for involving me in the care of Ms. Callaway. I will follow her along with you.
--- NOTE | 2019-11-20 15:23 | REP ---
VENTILATION-PERFUSION LUNG SCAN: HISTORY: Chronic kidney disease. Shortness of breath. Rule out pulmonary embolus. CT study from November 19, 2019 study shows considerable atelectasis in the right middle lobe. TECHNIQUE: 1.0 mCi technetium 99m DTPA aerosol is utilized for the ventilation study. This is followed by an intravenous dose of 5.1 mCi technetium 99m MAA for the perfusion study. A series of eight planar images are acquired for each portion of the study. SCINTIGRAPHIC FINDINGS: There is some patchy perihilar bronchial deposition of ventilatory tracer bilaterally consistent with COPD. In general, the ventilation study shows more homogeneous less patchy uptake bilaterally. There are ill-defined areas of matched decreased ventilation and perfusion uptake in the upper lobes posteriorly on both sides. No mismatched defect is appreciated. IMPRESSION: Low probability scan for pulmonary embolus. Evidence of COPD. Electronically Signed by Brian Kidd MD 11/20/2019 06:57 P
[2019-11-20 16:39] LABS: ALBUMIN 3.3 GM/DL (3.2-5.2); CALCIUM LEVEL 8.9 MG/DL (8.8-10.2); CREATININE FOR GFR 1.7 MG/DL (0.55-1.30); GLOMERULAR FILTRATION RATE 31.5 (>39); POTASSIUM SERUM 4.1 MEQ/L (3.5-5.1)
[2019-11-20 16:58] VITALS: BP 130/84
[2019-11-20 22:00] VITALS: BP 137/81
[2019-11-20] MEDS: rOPINIRole 2MG TAB PO SCH (22:34)
[2019-11-21] MEDS ORDERED: ACETAMINOPHEN 325 MG TAB PO ONE (04:30)
[2019-11-21] MEDS: FUROSEMIDE 40 MG/4 ML VIAL (J1940) IV SCH ×4 (04:34→23:28)
[2019-11-21] MEDS: HEPARIN SOD (PORCINE) 5000 UNITS/ML VIAL (J1644 PER 1000UNITS) SQ SCH ×3 (05:35→20:34)
[2019-11-21 06:00] VITALS: BP 117/59
[2019-11-21] MEDS: IPRATROPIUM 0.5MG/ALBUTEROL 2.5MG INH SOL UD 3ML (DUONEB)(J7620) NEB SCH ×4 (07:46→19:45)
[2019-11-21] MEDS: GABAPENTIN 300 MG CAP PO SCH ×3 (08:22→20:33)
[2019-11-21] MEDS: FLUoxetine 10 MG CAP PO SCH (08:22)
[2019-11-21] MEDS: SPIRONOLACTONE 25 MG TAB PO SCH (08:22)
[2019-11-21] MEDS: buPROPion **XL** TABLET 150MG (WELLBUTRIN XL) PO SCH (08:22)
[2019-11-21] MEDS: ATORVASTATIN 20 MG TAB PO SCH (08:22)
[2019-11-21] MEDS: allopurinoL 300 MG TAB PO SCH (08:23)
[2019-11-21] MEDS: METOPROLOL SUCC *XL* 25MG TAB (TopROL *XL*) PO SCH (08:24)
[2019-11-21] MEDS: OMEPRAZOLE 20 MG CAP PO SCH (08:24)
[2019-11-21] MEDS: AZELASTINE 137MCG NASAL SPY 30 ML (ASTELIN) SCH ×2 (08:24→20:34)
[2019-11-21 09:30] LABS: BASO # 0.1 10^3/uL (0.0-0.2); BASO % 0.7 % (0.0-1.0); EOS # 0.1 10^3/uL (0.0-0.5); EOS % 1.2 % (0.0-3.0); HEMATOCRIT 39.4 % (36.0-47.0); HEMOGLOBIN 12.4 g/dl (12.0-15.5); LYMPH # 1.9 10^3/uL (1.5-5.0); LYMPH % 25.4 % (24.0-44.0); MEAN CORPUSCULAR HEMOGLOBIN 31.1 pg (27.0-33.0); MEAN CORPUSCULAR HGB CONC 31.5 g/dl (32.0-36.5); MEAN CORPUSCULAR VOLUME 98.7 fl (80.0-96.0); MONO # 0.5 10^3/uL (0.0-0.8); MONO % 7.2 % (0.0-5.0); NEUTROPHILS # 4.8 10^3/uL (1.5-8.5); NEUTROPHILS % 64.7 % (36.0-66.0); PLATELET COUNT, AUTOMATED 233 10^3/uL (150-450); RED BLOOD COUNT 3.99 10^6/uL (4.00-5.40); WHITE BLOOD COUNT 7.5 10^3/uL (4.0-10.0)
[2019-11-21 10:05] LABS: BLOOD UREA NITROGEN 47 MG/DL (7-18); CALCIUM LEVEL 8.7 MG/DL (8.8-10.2); CARBON DIOXIDE LEVEL 27 MEQ/L (21-32); CHLORIDE LEVEL 102 MEQ/L (98-107); GLOMERULAR FILTRATION RATE 29.4 (>39); GLUCOSE, FASTING 195 MG/DL (70-100); POTASSIUM SERUM 3.6 MEQ/L (3.5-5.1); SODIUM LEVEL 139 MEQ/L (136-145)
[2019-11-21 10:06] LABS: CK-MB VALUE MASS 1.4 NG/ML (<3.6); CPK CREATINE PHOSPHOKINASE 352 U/L (26-192); MAGNESIUM LEVEL 2.1 MG/DL (1.8-2.4); NT-PRO BNP 182 PG/ML (<125); TROPONIN I < 0.02 NG/ML (< 0.10)
[2019-11-21] MEDS: POTASSIUM CHLORIDE 10 MEQ SR TABLET PO SCH ×3 (11:52→20:33)
--- NOTE | 2019-11-21 13:38 | IPN ---
DATE: 11/21/2019 The patient says that her breathing is a little bit better. She is still requiring supplemental oxygen and nebulizer treatments. She diuresed 1.325 liters yesterday noted on Pendleton catheter. Denies any chest pain, pressure or tightness. No dizziness or lightheadedness. No nausea or vomiting, fever, chills. She still has a cough that is nonproductive. Input and output overnight: Input of 1168, output 1325, negative 157. Current weight is 129.6 kg. Admission weight of 129.09 kg. PHYSICAL EXAMINATION: GENERAL: The patient is awake, alert, oriented times three. Answering questions appropriately. No use of respiratory accessory muscles. Trachea is midline. Thick neck. Unable to assess for jugular venous distention (JVD). No cervical lymphadenopathy or thyromegaly. Moist mucous membranes. HEART: S1, S2. Sinus rhythm. LUNGS: Diminished bilaterally with rales at the bases and faint expiratory wheezing in the upper lobes. ABDOMEN: Obese, soft, nontender, nondistended. Positive bowel sounds. No hepatosplenomegaly. No abdominal bruits. EXTREMITIES: 2+ pitting edema to the sacrum, slightly improved today than yesterday. LABORATORY DATA: White count 7.5, hemoglobin 12, hematocrit 39, platelet count 233. Sodium 139, potassium 3.6, chloride 102, bicarbonate 27, BUN 47, creatinine 1.8, GFR of 29, glucose 195. V/Q scan showed low probability of pulmonary embolism on 11/19/2019. Negative for deep vein thrombosis (DVT) on vascular ultrasound. CT of the abdomen and pelvis on 11/19/2019 showed gallbladder incompletely distended, most likely related to incomplete fasting. Small hiatal hernia. Multilevel spinal stenosis. Chest CT on 11/19/2019 showed moderate paraseptal and lobular emphysema, most pronounced in the upper lung zones. Small hiatal hernia. No acute pulmonary or parenchymal abnormality. ASSESSMENT AND PLAN: This is a 73-year-old FULL [employer], morbidly obese with Body Mass Index (BMI) of 46.1, probable obesity hypoventilation syndrome and obstructive sleep apnea, chronic kidney disease stage III, chronic obstructive pulmonary disease (COPD), chronic diastolic heart failure with ejection fraction of 65% on echo 07/25/[address] Butler, hypertension, left breast cancer, status post mastectomy, reflux, right eye macular degeneration, who presented to the emergency room with dyspnea on exertion, 20 pound weight gain since September with productive cough with white yellow sputum and postnasal drip and nausea. The patient says that she has been compliant with her continuous positive airway pressure (CPAP) for obstructive sleep apnea and had been seen by Dr. Holloway, her tab builder as an outpatient. The patient is admitted for the following issues: 1. Acute on chronic hypoxic respiratory failure, most likely secondary to right sided heart failure with cor pulmonale due to acute on chronic diastolic congestive heart failure (CHF) with preserved systolic ejection fraction 65%. 2. Chronic obstructive pulmonary disease (COPD) exacerbation. Currently on Solu-Medrol and nebulizer treatments. 3. Acute congestive heart failure (CHF) exacerbation, diastolic dysfunction with preserved systolic ejection fraction, managed by her machine deburrer due to chronic kidney disease stage III to IV, strict input and output, daily weights and fluid restriction. The patient remains with the same weight and will most likely need a few more days of diuresis. 4. Obstructive sleep apnea. Resume home CPAP. 5. Hypertension. Currently stable. Resumed on all of her home medications. 6. Body Mass Index (BMI) of 45.9 with morbid obesity. Outpatient followup with primary care provider for weight loss program, cardiac rehabilitation. [facility]
[2019-11-21 14:00] VITALS: BP_SYST 106; BP_SYST 97; BP_DIAS 55; BP_DIAS 60
[2019-11-21] MEDS: rOPINIRole 2MG TAB PO SCH (20:33)
--- NOTE | 2019-11-21 21:59 | IPN ---
DATE: 11/21/2019 Mrs. Callaawy is seen this morning on her bedside. She is sitting in the recliner chair and reports feeling better. Her dyspnea is improving. She denies any nausea or vomiting. She has no fever or chills. PHYSICAL EXAMINATION Temperature 98.2 degrees Fahrenheit, heart rate 80 per minute and respiratory rate 20 per minute. Blood pressure 112/56 mmHg and oxygen saturation 94% on 2 liters oxygen. Head is atraumatic. Neck is supple and JVD difficult to be assessed. Heart: Sounds are regular and without a pericardial friction rub. Lungs with diminished breath sounds and bilateral rhonchi. Abdomen: Soft and nontender and bowel sounds are normal. Extremities: Without any cyanosis or clubbing. LABS: Today's labs show WBC count 7.5, hemoglobin 12.4 and hematocrit 39.4. Sodium 139, potassium 3.6, CO2 27, BUN 47 and creatinine 1.80. CPK 352. PROBLEMS: 1. Acute on chronic congestive heart failure. Volume status remains decompensated. She is being diuresed with IV Lasix and seems to be responding well. We will continue with the same for next 24 hours and then consider to switch her to her chronic dose of torsemide. 2. Hypokalemia. Her potassium level is borderline low related to diuretic use. We will give her potassium supplement 20 mEq three times a day. Electrolytes will be checked again tomorrow morning. 3. Acute kidney injury superimposed on chronic kidney disease. Slight increase in BUN and creatinine related to diuresis. At this point, we will continue to monitor her kidney function on a daily basis. 4. COPD. She has history of COPD. However, does not seem to have any acute exacerbation. I have already stopped her diuretics. She continues with nebulizers and seems to be quite comfortable and stable.
[2019-11-21 22:00] VITALS: BP 129/70
[2019-11-21 23:22] VITALS: BP 130/60
[2019-11-22] MEDS: HEPARIN SOD (PORCINE) 5000 UNITS/ML VIAL (J1644 PER 1000UNITS) SQ SCH ×3 (05:43→22:23)
[2019-11-22] MEDS: FUROSEMIDE 40 MG/4 ML VIAL (J1940) IV SCH ×4 (05:43→23:21)
[2019-11-22 06:00] VITALS: BP 126/60
[2019-11-22 06:26] LABS: CALCIUM LEVEL 8.9 MG/DL (8.8-10.2); CREATININE FOR GFR 1.47 MG/DL (0.55-1.30); GLOMERULAR FILTRATION RATE 37.2 (>39); MAGNESIUM LEVEL 2.3 MG/DL (1.8-2.4)
[2019-11-22] MEDS: IPRATROPIUM 0.5MG/ALBUTEROL 2.5MG INH SOL UD 3ML (DUONEB)(J7620) NEB SCH ×4 (07:07→21:18)
[2019-11-22] MEDS: METOPROLOL SUCC *XL* 25MG TAB (TopROL *XL*) PO SCH (08:16)
[2019-11-22] MEDS: POTASSIUM CHLORIDE 10 MEQ SR TABLET PO SCH ×3 (08:16→22:23)
[2019-11-22] MEDS: SPIRONOLACTONE 25 MG TAB PO SCH (08:17)
[2019-11-22] MEDS: buPROPion **XL** TABLET 150MG (WELLBUTRIN XL) PO SCH (08:17)
[2019-11-22] MEDS: FLUoxetine 10 MG CAP PO SCH (08:17)
[2019-11-22] MEDS: GABAPENTIN 300 MG CAP PO SCH ×3 (08:17→22:23)
[2019-11-22] MEDS: OMEPRAZOLE 20 MG CAP PO SCH (08:17)
[2019-11-22] MEDS: ATORVASTATIN 20 MG TAB PO SCH (08:17)
[2019-11-22] MEDS: allopurinoL 300 MG TAB PO SCH (08:17)
[2019-11-22] MEDS: AZELASTINE 137MCG NASAL SPY 30 ML (ASTELIN) SCH ×2 (08:18→22:24)
[2019-11-22] MEDS ORDERED: ACETAMINOPHEN TAB 650MG DOSE (2X325MG) PO ONE (08:30)
[2019-11-22] MEDS ORDERED: SENOKOT S TAB PO PRN (10:15)
[2019-11-22] MEDS ORDERED: MIRALAX *UNIT DOSE* 17GM PACKET PO PRN (10:15)
[2019-11-22] MEDS ORDERED: BISACODYL 10 MG SUPP PR PRN (10:15)
--- NOTE | 2019-11-22 11:12 | IPN ---
DATE OF VISIT: 11/22/2019 Mrs. Callaway is seen this morning on her bedside. She is sitting in her recliner chair now. She did walk in the room with the help of her walker. Her dyspnea is improving but she is still requiring oxygen. She is diuresing very well. She denies any nausea, vomiting, fever or chills. On physical exam, temperature 98.3 degrees Fahrenheit, heart rate 92 per minute and respiratory rate 22 per minute. Blood pressure 128/59 mmHg and oxygen saturation 93% on 2 liters oxygen. Intake and output records from yesterday showed total intake 1740 and output 3050 mL with a negative balance of just over 1300. Her head is atraumatic. Neck is supple and jugular venous distention (JVD) still markedly elevated. Heart sounds are regular and lungs with diminished breath sounds and bilateral basilar rales. Abdomen obese, soft and nontender and bowel sounds are present. Extremities without any cyanosis or clubbing. Lower extremity edema is 2+. Neurologically, she is awake, alert and oriented times three. Today's labs show sodium 140, potassium 4.0, CO2 28, BUN 42 and creatinine 1.47. Glucose 107 and calcium 8.9. PROBLEMS: 1. Acute on chronic congestive heart failure. Patient is diuresing well with intravenous Lasix and will continue with the same for another 24 hours. I do not feel that she is quite ready for oral diuretic at this time. 2. Hypokalemia. Potassium level is corrected with potassium supplement and will continue with the current potassium supplement for now. 3. Acute on chronic kidney disease. Kidney function was slightly worse yesterday but improved today. Most likely her acute kidney injury is related to decompensated congestive heart failure.
--- NOTE | 2019-11-22 11:14 | IPN ---
DATE: 11/22/2019 Patient has been diuresis quite well and has been net negative balance. Shortness of breath has improved. So has the lower extremity edema. Patient is ambulating well and has been seen by Dr. Joe special equipment technician with plans for discharge in the morning and transitioning to oral medication with Torsemide today. Patient denies any cough, shortness of breath. She complains of back pain rated a 5/10, achy especially when she is in bed. Better when she walks around a little bit. Better when she puts Lidoderm patches which she has at home as well as Tylenol. She also complains of hemorrhoidal pain, difficulty moving her bowels and constipation. No nausea or vomiting, tolerating her diet. No worsening of abdominal distention. Patient denies any chest pain, pressure, tightness, lightheadedness or dizziness. No fever or chills. Temperature 98.3, pulse 79, respiratory rate 22, blood pressure 126/69, 93% on 2 liters nasal cannula. Generally, patient is awake, alert, oriented, answering questions appropriately. Thick neck. Unable to assess for jugular venous distention (JVD). Moist mucous membranes. Lungs diminished. Fine bibasilar crackles. Heart: S1, S2. Sinus rhythm. Abdomen is obese, soft, nontender, nondistended. Extremities: 1+ pitting edema. LABORATORY DATA: White count 7.5, hemoglobin 12, hematocrit 39, platelet count 233. Sodium 140, potassium 4, chloride 104, bicarbonate 28, BUN 42, creatinine 1.47, glucose 107, magnesium 2.3. Input/output: Input 1740, output 03050, negative 1310. Current weight 129.5 kg, previous weight of 129.6 kg. Respiratory panel is negative. ASSESSMENT/PLAN: This is a 73-year-old female with a history of moderate emphysema centrolobular, obstructive sleep apnea on CPAP, chronic diastolic heart failure see Dr. Butler. Chronic kidney disease stage III, morbid obesity, presented with worsening shortness of breath and weight gain of 20 pounds. Patient currently has been diuresis well. She has acute on chronic hypoxic respiratory failure due to right-sided heart failure, diastolic dysfunction improving significantly. She has been diuresed per Dr. Joe with creatinine remaining stable. Discharge home in the morning. [facility]
[2019-11-22] MEDS: ANUSOL HC CREAM 30GM PR SCH ×2 (12:00→22:24)
[2019-11-22] MEDS: LIDOCAINE 5% (LIDODERM) PATCH TD SCH (12:00)
[2019-11-22 14:00] VITALS: BP 118/65
--- NOTE | 2019-11-22 20:47 | ECHO ---
DATE OF PROCEDURE: 11/22/2019 REFERRING PHYSICIAN: Krysta Barakat MD INDICATION: Shortness of breath. HEIGHT: 167 cm WEIGHT: 130 kg DIMENSIONS: IVS: 1.3 LV: 4.1 LVPW: 1.3 Aorta: 3.3 LA: 4.4 Mitral E wave velocity: 116, A-wave: 152 E prime septal: 4.0. E prime lateral: 9.5 IVC: 2.4 FINDINGS The study is of fair technical quality corresponding to patient's body habitus. The patient is in sinus rhythm. Left ventricle is of normal size and has normal contractility. I estimate left ventricular ejection fraction (LVEF) around 65-70%. Right ventricle also appears to be grossly normal size and systolic function. Aortic valve is sclerotic but mobility of cusp is preserved. There are prominent mitral annular calcifications with some limitations of mitral leaflet mobility. Tricuspid valve appears normal. Pulmonic valve was not visualized. No pericardial effusion is noted but very prominent pericardial fat pad is present. Inferior vena cava is dilated and there is limited collapse with inspiration indicative of elevated central venous pressure. Aortic root is normal. Aortic arch and abdominal aorta were not well seen. Doppler interrogation of aortic valve reveals no significant stenosis or insufficiency. There is mild mitral stenosis with mean gradient across mitral valve 4 mmHg. Trace tricuspid insufficiency is seen. Calculated pulmonary artery pressure is around 40 to 45 mmHg corresponding to moderate pulmonary hypertension. Mitral inflow pattern and tissue Doppler imaging of mitral annulus reveal grade 1 diastolic dysfunction. CONCLUSIONS: 1. Study is of fair quality. The patient is in sinus rhythm. 2. Normal left ventricle (LV) size with mild left ventricular hypertrophy (LVH) and preserved LV systolic function. Grade 1 diastolic dysfunction. 3. Normally functioning aortic valve. 4. Mild mitral stenosis. 5. Elevated central venous pressure and likely moderate pulmonary hypertension. 6. Very prominent pericardial fat pad. COMMENT Subacute bacterial endocarditis (SBE) prophylaxis is not recommended.
[2019-11-22] MEDS: **NOTE PATIENT COMMENT** MISC XX SCH (21:00)
[2019-11-22 22:00] VITALS: BP 116/59
[2019-11-22] MEDS: rOPINIRole 2MG TAB PO SCH (22:23)
[2019-11-23] MEDS: HEPARIN SOD (PORCINE) 5000 UNITS/ML VIAL (J1644 PER 1000UNITS) SQ SCH ×3 (05:20→22:34)
[2019-11-23] MEDS: FUROSEMIDE 40 MG/4 ML VIAL (J1940) IV SCH ×4 (05:20→22:34)
[2019-11-23 06:00] VITALS: BP 168/65
[2019-11-23 06:20] VITALS: BP 140/60
[2019-11-23 07:14] LABS: CALCIUM LEVEL 9.1 MG/DL (8.8-10.2); CREATININE FOR GFR 1.48 MG/DL (0.55-1.30); GLOMERULAR FILTRATION RATE 36.9 (>39); MAGNESIUM LEVEL 2.4 MG/DL (1.8-2.4)
--- NOTE | 2019-11-23 10:14 | IPN ---
DATE: 11/23/2019 The patient's shortness of breath is slightly improved. No chest pain, pressure or tightness, lightheadedness, nausea, vomiting, epigastric pain, palpitations. Patient is working with physical therapy to ambulate. Her lower extremity edema is slightly improved, still at 2+, a feeling of heaviness when she walks around. No PND, no orthopnea. Patient is sleeping at a 30 degree angle. No fever or chills. Denies any cough. Temperature 98.4, pulse 86, respiratory rate 22, blood pressure 140/60, 90% on room air. Intake and output: Input 1400, output 3675, current weight is 129 kilos, negative 2275. Generally, patient is awake, alert, oriented times three, answering questions appropriately. Thick neck. No cervical lymphadenopathy, thyromegaly. Moist mucous membranes. Lungs diminished but clear to auscultation. No wheezing or rales. Heart: S1, S2. Sinus rhythm. Abdomen is obese, soft, nontender, nondistended. Positive bowel sounds. Extremities positive 2+ pitting edema to the sacrum. 11/21/2019 CBC has been reviewed. 11/23/2019 metabolic panel sodium 141, potassium 4, chloride 104, bicarbonate 29, BUN 41, creatinine 1.48, glucose 112. ASSESSMENT/PLAN: This is a 73-year-old morbidly obese female with BMI of 45.9, end stage COPD with moderate emphysema centrolobular, obstructive sleep apnea, compliant with her CPAP, chronic diastolic heart failure, chronic kidney disease stage III-IV, presented with worsening shortness of breath and weight gain of 20 pounds admitted for cor pulmonale and right sided heart failure with acute on chronic diastolic heart failure with preserved systolic ejection fraction. ACUTE ISSUES: 1. Acute decompensated diastolic heart failure with preserved ejection fraction currently being diuresed by Dr. oJe. Strict intake and output, daily weights, fluid restriction. Patient has been at negative balance for three days, but has not had any significant weight loss. Still continues to have 2+ pitting edema at the bedside. Per nephrology the patient will need a few more days of diuresis. Creatinine is holding steady and remains at stage III chronic kidney disease. 2. Chronic kidney disease stage III. Currently at baseline creatinine, tolerating diuresis with Lasix 40 mg IV every 6 hours. 3. Chronic back pain on Lidoderm patch, as needed Tylenol. 4. Hemorrhoids. On Proctosol, MiraLAX, Dulcolax, and Senokot for bowel regimen. 5. Gout, on chronic allopurinol. 6. Dyslipidemia, on Lipitor. 7. Depression, on Prozac and Wellbutrin. 8. Hypertension, on chronic Toprol XL. 9. Restless legs, on chronic Requip. DISPOSITION: Patient will need 3-4 more days of diuresis. MTDD
[2019-11-23] MEDS: allopurinoL 300 MG TAB PO SCH (10:15)
[2019-11-23] MEDS: GABAPENTIN 300 MG CAP PO SCH ×3 (10:15→22:35)
[2019-11-23] MEDS: ATORVASTATIN 20 MG TAB PO SCH (10:15)
[2019-11-23] MEDS: OMEPRAZOLE 20 MG CAP PO SCH (10:15)
[2019-11-23] MEDS: SPIRONOLACTONE 25 MG TAB PO SCH (10:16)
[2019-11-23] MEDS: FLUoxetine 10 MG CAP PO SCH (10:16)
[2019-11-23] MEDS: POTASSIUM CHLORIDE 10 MEQ SR TABLET PO SCH ×3 (10:16→22:35)
[2019-11-23] MEDS: buPROPion **XL** TABLET 150MG (WELLBUTRIN XL) PO SCH (10:16)
[2019-11-23] MEDS: METOPROLOL SUCC *XL* 25MG TAB (TopROL *XL*) PO SCH (10:17)
[2019-11-23] MEDS: AZELASTINE 137MCG NASAL SPY 30 ML (ASTELIN) SCH ×2 (10:18→22:37)
[2019-11-23] MEDS: LIDOCAINE 5% (LIDODERM) PATCH TD SCH (10:18)
[2019-11-23] MEDS: ANUSOL HC CREAM 30GM PR SCH ×2 (10:19→22:36)
[2019-11-23] MEDS: IPRATROPIUM 0.5MG/ALBUTEROL 2.5MG INH SOL UD 3ML (DUONEB)(J7620) NEB SCH ×3 (12:33→18:35)
[2019-11-23] MEDS: ACETAMINOPHEN TAB 650MG DOSE (2X325MG) PO PRN (13:11)
[2019-11-23 14:00] VITALS: BP 141/70
--- NOTE | 2019-11-23 16:40 | IPN ---
DATE: 11/23/2019 Mrs. Callaway is seen this morning on her bedside. She is sitting in the recliner chair at the time of my visit. Her dyspnea is improving and she is diuresing very well. She also feels that her leg edema is improving slowly. She denies any nausea or vomiting. She is not using oxygen anymore. PHYSICAL EXAMINATION Temperature 98.4 degrees Fahrenheit, heart rate 86 per minute and respiratory rate 22 per minute. Blood pressure 168/65 mmHg and oxygen saturation 90% on room air. Head is atraumatic. Neck is supple and jugular venous distention (JVD) difficult to be assessed. No oral thrush or ulcers noted. Heart: Sounds are regular and lungs with diminished breath sounds and bibasilar rales. Abdomen: Obese, soft and nontender and bowel sounds are normal. Extremities with 1+ edema on the right leg and 2+ edema on the left side. She has no cyanosis or clubbing. Neurologically she is awake, alert and oriented times three. Today's labs show sodium 141, potassium 4.0, CO2 29, BUN 41 and creatinine 1.58. PROBLEMS 1. Acute on chronic congestive heart failure. The patient had gained about 20 pounds weight. She is diuresing nicely and volume status is improving. I am going to leave her on intravenous Lasix for next 24 hours. She is receiving 40 mg every 6 hours. We will reevaluate her tomorrow for possibility of switching to oral diuretic. My feeling is that she still has significant decompensation of volume status and will require further diuresis. 2. Acute on chronic kidney disease. Kidney function is stable and this is probably her baseline. Electrolytes are all within normal range.
[2019-11-23] MEDS: **NOTE PATIENT COMMENT** MISC XX SCH (21:00)
[2019-11-23 22:00] VITALS: BP 127/56
[2019-11-23] MEDS: rOPINIRole 2MG TAB PO SCH (22:35)
[2019-11-24] MEDS: FUROSEMIDE 40 MG/4 ML VIAL (J1940) IV SCH ×4 (05:30→22:54)
[2019-11-24] MEDS: HEPARIN SOD (PORCINE) 5000 UNITS/ML VIAL (J1644 PER 1000UNITS) SQ SCH ×3 (05:31→21:19)
[2019-11-24 06:00] VITALS: BP 136/69
[2019-11-24 06:21] LABS: CREATININE FOR GFR 1.44 MG/DL (0.55-1.30); GLOMERULAR FILTRATION RATE 38.1 (>39); MAGNESIUM LEVEL 2.5 MG/DL (1.8-2.4); POTASSIUM SERUM 4.5 MEQ/L (3.5-5.1)
[2019-11-24] MEDS: IPRATROPIUM 0.5MG/ALBUTEROL 2.5MG INH SOL UD 3ML (DUONEB)(J7620) NEB SCH ×4 (06:25→19:54)
[2019-11-24] MEDS: buPROPion **XL** TABLET 150MG (WELLBUTRIN XL) PO SCH (08:37)
[2019-11-24] MEDS: FLUoxetine 10 MG CAP PO SCH (08:37)
[2019-11-24] MEDS: POTASSIUM CHLORIDE 10 MEQ SR TABLET PO SCH ×3 (08:38→21:17)
[2019-11-24] MEDS: allopurinoL 300 MG TAB PO SCH (08:38)
[2019-11-24] MEDS: OMEPRAZOLE 20 MG CAP PO SCH (08:38)
[2019-11-24] MEDS: GABAPENTIN 300 MG CAP PO SCH ×3 (08:38→21:18)
[2019-11-24] MEDS: METOPROLOL SUCC *XL* 25MG TAB (TopROL *XL*) PO SCH (08:39)
[2019-11-24] MEDS: SPIRONOLACTONE 25 MG TAB PO SCH (08:39)
[2019-11-24] MEDS: ATORVASTATIN 20 MG TAB PO SCH (08:39)
[2019-11-24] MEDS: AZELASTINE 137MCG NASAL SPY 30 ML (ASTELIN) SCH ×2 (08:40→21:19)
[2019-11-24] MEDS: ANUSOL HC CREAM 30GM PR SCH ×2 (08:40→21:19)
[2019-11-24] MEDS: LIDOCAINE 5% (LIDODERM) PATCH TD SCH (08:41)
[2019-11-24] MEDS: ACETAMINOPHEN TAB 650MG DOSE (2X325MG) PO PRN ×2 (08:47→21:18)
[2019-11-24] MEDS ORDERED: LEVALBUTEROL 1.25 MG/0.5 ML CONCENTRATE NEB NEB ONE (10:00)
[2019-11-24] MEDS ORDERED: guaiFENesin DM LIQ 10ML UD PO ONE (10:00)
[2019-11-24] MEDS ORDERED: FIORICET TAB PO ONE ×2 (10:00→23:30)
--- NOTE | 2019-11-24 10:01 | REP ---
Clinical: Cough. Technique: PA and lateral. Comparison: 11/19/2019. Findings: Mediastinum and cardiac silhouette stable with cardiomegaly again suggested. Lung coppola demonstrate chronic interstitial changes. No obvious acute consolidation, effusion, or pneumothorax. Skeletal structures intact. Impression: Chronic stable changes. No focal consolidation or effusion. Electronically Signed by Calvin Ballard MD 11/24/2019 09:53 A
[2019-11-24 11:00] VITALS: BP 105/63
[2019-11-24 12:30] VITALS: BP 107/60
[2019-11-24] MEDS ORDERED: metOLazone 2.5 MG TAB PO ONE (12:30)
[2019-11-24 14:00] VITALS: BP 121/61
[2019-11-24 16:05] VITALS: BP 96/50
--- NOTE | 2019-11-24 19:26 | IPN ---
DATE: 11/24/2019 Patient complains of diffuse headache this morning, which she occasionally gets at home, along with some leg discomfort that she usually uses a heating pad for. Despite Tylenol, patient has had no improvement. She denies any aura or changes in vision. Denies any neck rigidity. Afebrile. No complaints of palpitations, lightheadedness. Patient has been on net negative Lasix for the past four days. Weight is 127 kilos, 129.09 on admission. VITAL SIGNS: Temperature 96.9, pulse 80, respiratory rate 22, blood pressure 138/70, 94% on room air. GENERAL: Awake, alert, oriented times three. Moist mucous membranes. Neck has negative Brudzinski or Kernig's sign. No tenderness on vertebral exam to the midback. No motor dysfunction. 5/5 motor function on four extremities. There were no paresthesias. Sensation is intact bilateral upper and lower extremities. LUNGS: Diminished, but clear to auscultation. HEART: S2, S2. Sinus rhythm. No murmurs, rubs or gallops. ABDOMEN: Obese, soft, nontender, nondistended. EXTREMITIES: 2+ pitting edema to the sacrum. LABORATORY DATA: 11/21/2019: Complete blood count (CBC) has been reviewed. Metabolic panel notable for creatinine of 1.4, baseline creatinine 1.4-1.7. Still at stage III chronic kidney disease. Chest x-ray 11/24/2019: Chronic stable changes, chronic interstitial changes in the lung. No effusion, pneumothorax or consolidation. ASSESSMENT AND PLAN: This is a 73-year-old morbidly obese female with body mass index (BMI) of 45.4, with chronic kidney disease stage III, congestive heart failure, diastolic dysfunction with preserved systolic ejection fraction, chronic obstructive pulmonary disease (COPD) with moderate emphysema, central lobular obstructive sleep apnea compliant with her continuous positive airway pressure (C-PAP) , presented with 20 pound weight gain, shortness of breath, admitted for cor pulmonale, right sided heart failure with acute on chronic diastolic heart failure with preserved systolic function. IMPRESSION: 1. Congestive heart failure (CHF), acute decompensated diastolic dysfunction. Currently being diuresed by nephrology. Patient has been net negative for the past four days with decrease in weight from 129 to 127. Patient requires further diuresis. She has had some symptomatic relief in her shortness of breath at rest, but continues to have dyspnea on exertion. Creatinine is remaining steady with stage III chronic kidney disease (CKD), still on fluid restriction. Strict intake and output (I and O) and daily weights. 2. Headache. As needed Tylenol. Patient has no concerning symptoms. Denies any neck stiffness. No fever or chills. Patient denies any visual changes. She has been given Fioricet with much relief. 3. Chronic back pain. On Lidoderm patch and heat pad. 4. Gout. On allopurinol. 5. Dyslipidemia. On Lipitor. 6. Depression. Prozac and Wellbutrin. 7. Hypertension. On chronic Toprol XL. 8. Restless leg. On chronic Requip. DISPOSITION: Per Dr. Joe, patient will need a few more days of diuresis. Will defer to nephrology for discharge. Anticipate clinical improvement 3-4 days. MTDD
[2019-11-24] MEDS: guaiFENesin DM LIQ 10ML UD PO PRN (21:17)
[2019-11-24] MEDS: rOPINIRole 2MG TAB PO SCH (21:18)
[2019-11-24] MEDS: **NOTE PATIENT COMMENT** MISC XX SCH (21:19)
[2019-11-24 22:00] VITALS: BP 127/64
[2019-11-25] MEDS: FUROSEMIDE 40 MG/4 ML VIAL (J1940) IV SCH (05:00)
[2019-11-25 06:00] VITALS: BP 98/60
[2019-11-25] MEDS: HEPARIN SOD (PORCINE) 5000 UNITS/ML VIAL (J1644 PER 1000UNITS) SQ SCH ×3 (06:18→20:52)
[2019-11-25] MEDS: guaiFENesin DM LIQ 10ML UD PO PRN ×3 (06:18→15:27)
[2019-11-25 06:49] LABS: CALCIUM LEVEL 9.7 MG/DL (8.8-10.2); CREATININE FOR GFR 1.59 MG/DL (0.55-1.30); MAGNESIUM LEVEL 2.7 MG/DL (1.8-2.4); POTASSIUM SERUM 4.5 MEQ/L (3.5-5.1)
--- NOTE | 2019-11-25 07:41 | IPN ---
DATE: 11/24/2019 SUBJECTIVE: The patient was seen and examined at the bedside today morning. She is afebrile, hemodynamically stable. She continues to be on Lasix 40 mg IV every 6 hours. She made about 2.6 liters of urine yesterday, creatinine is stable at 1.4. She just took off her continuous positive airway pressure (CPAP) when I saw her today morning. She reports her shortness of breath is getting better. OBJECTIVE: Vital signs: Temperature is 96.7 degrees Fahrenheit, blood pressure 121/61, pulse is 71, respiratory rate of 21, saturating 93% on room air. Intake and output: Urine output recorded is 2.6 liters yesterday, 700 mL so far today since overnight, and weight in the bed scale is 127.7 kg, which is lower than yesterday. PHYSICAL EXAMINATION: General: The patient is awake, alert, oriented times three, morbidly obese, laying in bed. No apparent distress. Head and neck exam: Extraocular muscles intact. Pupils equally round and reactive to light. Mucous membranes are dry because of use of CPAP. Neck is supple. I could not appreciate the jugular venous distention (JVD). Cardiovascular: S1, S2 regular rate, 2+ edema of the bilateral lower extremities. Respiratory: Chest is clear to auscultation bilaterally. Bilateral equal air entry. No rales or rhonchi. Abdomen: Soft, obese, positive bowel sounds. Nontender. Musculoskeletal: 2+ edema of the bilateral lower extremities. Central nervous system (CHARGE LOADER): No focal deficit, power is 5/5 in all extremities. LAB REVIEW: BMP done today morning showed sodium 140, potassium 4.5, chloride 104, bicarbonate 27, BUN 47, creatinine is 1.4, magnesium 2.5. CURRENT INPATIENT MEDICATIONS: The patient's medications were all reviewed by me. She continues to be on Lasix 40 mg IV every 6 hours. I ordered a dose of metolazone 2.5 mg today morning, but it was not given because of soft blood pressures. Furosemide was also held in the morning because of soft blood pressures. 1. Acute decompensated diastolic congestive heart failure. The patient continues to be on IV diuretics. Blood pressures are soft now. IV diuretic was held. I would switch the patient to oral loop diuretic tomorrow morning. 2. Chronic kidney disease, stage III. Patient's renal function continues to be stable, creatinine has been fluctuating at 1.4. Okay to continue the diuretic dose at this time. 3. Chronic gout secondary to chronic kidney disease. Continue current dose of allopurinol. 4. Hypertension with hypertensive heart disease, blood pressures are optimal; actually she has soft blood pressure because of use of diuretic. Continue current dose of metoprolol XL 25 mg by mouth daily.
[2019-11-25] MEDS: IPRATROPIUM 0.5MG/ALBUTEROL 2.5MG INH SOL UD 3ML (DUONEB)(J7620) NEB SCH ×4 (08:01→20:19)
[2019-11-25 08:30] VITALS: BP 133/67
[2019-11-25] MEDS: FLUoxetine 10 MG CAP PO SCH (08:51)
[2019-11-25] MEDS: GABAPENTIN 300 MG CAP PO SCH ×3 (08:51→20:53)
[2019-11-25] MEDS: allopurinoL 300 MG TAB PO SCH (08:51)
[2019-11-25] MEDS: ATORVASTATIN 20 MG TAB PO SCH (08:52)
[2019-11-25] MEDS: OMEPRAZOLE 20 MG CAP PO SCH (08:52)
[2019-11-25] MEDS: POTASSIUM CHLORIDE 10 MEQ SR TABLET PO SCH ×3 (08:52→20:54)
[2019-11-25] MEDS: buPROPion **XL** TABLET 150MG (WELLBUTRIN XL) PO SCH (08:52)
[2019-11-25] MEDS: SPIRONOLACTONE 25 MG TAB PO SCH (08:53)
[2019-11-25] MEDS: METOPROLOL SUCC *XL* 25MG TAB (TopROL *XL*) PO SCH (08:53)
[2019-11-25] MEDS: AZELASTINE 137MCG NASAL SPY 30 ML (ASTELIN) SCH ×2 (08:53→22:08)
[2019-11-25] MEDS: LIDOCAINE 5% (LIDODERM) PATCH TD SCH (08:54)
[2019-11-25] MEDS: ANUSOL HC CREAM 30GM PR SCH ×2 (08:54→20:54)
[2019-11-25] MEDS: ACETAMINOPHEN TAB 650MG DOSE (2X325MG) PO PRN ×2 (09:00→15:27)
[2019-11-25] MEDS: TORSEMIDE 20 MG TAB PO SCH (11:22)
[2019-11-25 14:00] VITALS: BP 135/56
--- NOTE | 2019-11-25 15:22 | IPNPDOC ---
Date Seen The patient was seen on 11/25/19. Progress Note SUBJECTIVE: pt c/o persistent LE edema. SOB improved, but still with slight NEUMANN walking from bed to bathroom. s/p IV lasix. on torsemide, but has episodes of hypotension. no c/o dizziness, or lightheadedness OBJECTIVE VITALS: PLS SEE BELOW GENERAL: Awake, alert, oriented times three. moist mucus membranes, thick neck LUNGS: Diminished, but clear to auscultation. HEART: S2, S2. Sinus rhythm. No murmurs, rubs or gallops. ABDOMEN: Obese, soft, nontender, nondistended. EXTREMITIES: 2+ pitting edema LABORATORY DATA: pls see below, reviewed. Chest x-ray 11/24/2019: Chronic stable changes, chronic interstitial changes in the lung. No effusion, pneumothorax or consolidation. ASSESSMENT AND PLAN: This is a 73-year-old morbidly obese female with body mass index (BMI) of 45.4, with chronic kidney disease stage III, congestive heart failure, diastolic dysfunction with preserved systolic ejection fraction, chronic obstructive pulmonary disease (COPD) with moderate emphysema, central lobular obstructive sleep apnea compliant with her continuous positive airway pressure (C-PAP) , presented with 20 pound weight gain, shortness of breath, admitted for cor pulmonale, right sided heart failure with acute on chronic diastolic heart failure with preserved systolic function. IMPRESSION: 1. Congestive heart failure (CHF), diastolic dysfunction, improved. Currently being diuresed by nephrology. Strict intake and output (I and O) and daily weights. changed from iv lasix to oral torsemide today. per rory kennedy to dc home in am. 2. Headache, resolved. . As needed Tylenol. 3. Chronic back pain. On Lidoderm patch and heat pad. 4. Gout. On allopurinol. 5. Dyslipidemia. On Lipitor. 6. Depression. Prozac and Wellbutrin. 7. Hypertension. On chronic Toprol XL. 8. Restless leg. On chronic Requip. disposition: nc in am if cleared by nephrology. VS, I&O, 24H, Fishbone Vital Signs/I&O Vital Signs Date Time Temp Pulse Resp B/P (MAP) Pulse Ox O2 Delivery O2 Flow Rate FiO2 11/25/19 14:00 98.6 83 24 135/56 (82) 93 Room Air 11/23/19 22:00 2.0 I&O- Last 24 Hours up to 6 AM 11/25/19 05:59 Intake Total 1590 ml Output Total 2000 ml Balance -410 ml Laboratory Data 24H LABS Laboratory Tests 2 11/25/19 05:50: Anion Gap 8, Glomerular Filtration Rate 34.0L, Calcium Level 9.7, Magnesium Level 2.7H CBC/BMP Laboratory Tests 11/25/19 05:50 Microbiology Microbiology 11/20/19 Respiratory Virus Panel (PCR) (RAY) - Final, Complete MARTIN COELLO MD Nov 25, 2019 15:22
--- NOTE | 2019-11-25 19:22 | IPN ---
DATE: 11/25/2019 SUBJECTIVE: The patient was seen and examined at the bedside today morning. The patient is afebrile, hemodynamically stable. She was hypotensive yesterday and she barely got only one dose of Lasix yesterday and because of that she reports persistent lower extremity edema. Renal function is slightly worse, creatinine has bumped up from 1.4 to 1.5 today. OBJECTIVE: Vital signs: Temperature is 98.6 degrees Fahrenheit, blood pressure 135/56, pulse is 83, respiratory rate of 24, saturating 93% on room air. Intake and output: Urine output recorded is 2 liters yesterday, 1.9 liters so far today since overnight. PHYSICAL EXAMINATION: The patient is awake, alert, oriented times three, sitting up in the bed, morbidly obese. Head and neck exam: Extraocular muscles intact. Pupils equally round and reactive to light. Mucous membranes are moist. Neck is supple. I could not appreciate JVD. Cardiovascular: S1, S2, regular rate. 2+ edema of the bilateral lower extremities. Respiratory: Mildly decreased breath sounds at the bases, otherwise no active rales or rhonchi. Abdomen: Soft, obese, positive bowel sounds. Nontender. Musculoskeletal: No clubbing or cyanosis. Pulses are 2+. AUDIO ENGINEER: No focal deficit, power is 5/5 in all extremities. LABORATORY REVIEW: There is no CBC available. BMP showed sodium 138, potassium 4.5, chlorice, 102, bicarbonate 28, BUN 43, creatinine is 1.59, it was 1.44 yesterday, calcium 9.7, magnesium is 2.7. CURRENT INPATIENT MEDICATIONS: The patient's medications were all reviewed by me. Since she did not get the IV Lasix yesterday, I have switched her to oral torsemide 40 mg by mouth daily. She continues to be on spironolactone 25 mg by mouth daily. If her blood pressure tolerates, I will give her a dose of metolazone 2.5 mg in the evening as well. ASSESSMENT/PLAN: 1. Acute decompensated diastolic congestive heart failure. The patient's volume status is still decompensated. She is making around 2 liters of urine a day. She needs to be diuresed more, however, I have switched her to oral diuretics. Continue torsemide 40 mg daily with a combination of small dose of metolazone 2.5 mg. Further adjustment of dosage will be done tomorrow. 2. Chronic kidney disease stage III. Creatinine has been fluctuating between 1.4 to 1.5. However, the patient does need to be diuresed. Continue the diuretic as mentioned above. Electrolytes are within the acceptable limit. 3. Hypertension with hypertensive heart disease. Continue current dose of metoprolol and diuretics. Blood pressure is acceptable.
[2019-11-25] MEDS ORDERED: metOLazone 2.5 MG TAB PO ONE (20:00)
[2019-11-25] MEDS: rOPINIRole 2MG TAB PO SCH (20:53)
[2019-11-25] MEDS: **NOTE PATIENT COMMENT** MISC XX SCH (20:54)
[2019-11-25 22:00] VITALS: BP 144/53
[2019-11-26 06:00] VITALS: BP 130/79
[2019-11-26 06:34] LABS: CALCIUM LEVEL 9.6 MG/DL (8.8-10.2); CREATININE FOR GFR 1.42 MG/DL (0.55-1.30); GLOMERULAR FILTRATION RATE 38.7 (>39); MAGNESIUM LEVEL 2.7 MG/DL (1.8-2.4); POTASSIUM SERUM 4.7 MEQ/L (3.5-5.1)
[2019-11-26] MEDS: HEPARIN SOD (PORCINE) 5000 UNITS/ML VIAL (J1644 PER 1000UNITS) SQ SCH (06:37)
[2019-11-26] MEDS: IPRATROPIUM 0.5MG/ALBUTEROL 2.5MG INH SOL UD 3ML (DUONEB)(J7620) NEB SCH ×2 (08:00→12:00)
[2019-11-26] MEDS: GABAPENTIN 300 MG CAP PO SCH (08:55)
[2019-11-26] MEDS: ATORVASTATIN 20 MG TAB PO SCH (08:55)
[2019-11-26] MEDS: TORSEMIDE 20 MG TAB PO SCH (08:55)
[2019-11-26] MEDS: LIDOCAINE 5% (LIDODERM) PATCH TD SCH (08:55)
[2019-11-26] MEDS: OMEPRAZOLE 20 MG CAP PO SCH (08:55)
[2019-11-26 08:56] VITALS: BP 130/79
[2019-11-26] MEDS: FLUoxetine 10 MG CAP PO SCH (08:56)
[2019-11-26] MEDS: allopurinoL 300 MG TAB PO SCH (08:56)
[2019-11-26] MEDS: SPIRONOLACTONE 25 MG TAB PO SCH (08:56)
[2019-11-26] MEDS: POTASSIUM CHLORIDE 10 MEQ SR TABLET PO SCH (08:56)
[2019-11-26] MEDS: METOPROLOL SUCC *XL* 25MG TAB (TopROL *XL*) PO SCH (08:56)
[2019-11-26] MEDS: buPROPion **XL** TABLET 150MG (WELLBUTRIN XL) PO SCH (08:58)
[2019-11-26] MEDS: AZELASTINE 137MCG NASAL SPY 30 ML (ASTELIN) SCH (08:59)
[2019-11-26] MEDS: ANUSOL HC CREAM 30GM PR SCH (09:00)
[2019-11-26] MEDS ORDERED: TORS20TA2 PO (10:56)
[2019-11-26] MEDS ORDERED: metOLazone 2.5 MG TAB PO ONE (12:00)
--- NOTE | 2019-11-26 18:12 | IPNPDOC ---
Text Note Date of Service The patient was seen on 11/26/19. NOTE This note pertains to the nephrology service with Grzegorz Viera MD super vising my work. Please see E attestation below. SUBJECTIVE: Patient was seen at bedside this morning. She remains afebrile and hemodynamically stable. Her dyspnea has improved. OBJECTIVE: Vital signs: Please see below. General: Pt appears stated age, is in no acute distress, and is sitting up in a recliner. HEENT: Normocephalic, atraumatic. EOMI. Mucous membranes are moist. Neck is supple. JVD present. Cardiovascular: Regular rate and rhythm. Normal S1 and S2. 2+ lower extremity edema b/l. Respiratory: Lungs clear to auscultation b/l. No wheezes, rales, or rhonchi. Abdomen: Soft, obese, and nontender. Psychological: Pt is calm and cooperative. She answers questions appropriately. Intake and output: Urine output recorded is 2.8 liters yesterday and 1.3 liters today before discharge. LABORATORY REVIEW: CBC showed WBC 7.5, hemoglobin 12.4. BMP showed sodium 139, potassium 4.7, chloride 103, bicarbonate 29, BUN 41, creatinine is 1.42, calcium 9.6, magnesium 2.7. ASSESSMENT/PLAN: 1. Acute decompensated diastolic congestive heart failure - The patient's volume status is still decompensated in terms of continuing lower extremity edema, but her respiratory status has significantly improved. She is making around 2 liters of urine a day. She will need to continue diuresis on an outpatient basis. - She was switched to oral diuretics and will continue with torsemide 40 mg nayely y. Per her successful response to metolazone yesterday without significant hypotension, she was given a second one-time dose of metolazone 2.5 mg today before discharge. - Pt is stable for discharge from a nephrology standpoint. Recommend outpatient follow-up in the nephrology office in 2 weeks. 2. Chronic kidney disease stage III - Creatinine continues to fluctuate from 1.4-1.5. Continuing diuresis is still warranted per significant leg swelling. - Continue oral diuretic regimen and follow up as described above. Electrolytes are stable for discharge. 3. Hypertension with hypertensive heart disease - Continue diuretics described above and metoprolol 25 mg. Vital signs are stable and appropriate for continuing outpatient management. VS,Fishbone, I+O VS, Fishbone, I+O Laboratory Tests 11/26/19 05:45 Vital Signs Date Time Temp Pulse Resp B/P (MAP) Pulse Ox O2 Delivery O2 Flow Rate FiO2 11/26/19 08:56 75 130/79 11/26/19 06:00 96.6 20 95 Room Air 11/23/19 22:00 2.0 I&O- Last 24 Hours up to 6 AM 11/26/19 05:59 Intake Total 590 ml Output Total 2800 ml Balance -2210 ml GME ATTESTATION GME ATTESTATION My faculty preceptor for this patient encounter was physically present during the encounter and was fully available. All aspects of the patient interview, examination, medical decision making process, and medical care plan development were reviewed and approved by the faculty preceptor. The faculty preceptor is aware and concurs with the plan as stated in the body of this note and will attest to such by his/her cosignature. ATTENDING NOTE Pt was seen and examined with the resident today. A/P HFpEF HTN CKD3 Cont current dose of Torsemide+Spironolactone. Additional dose of Metolazone today. OK to DC. Follow up with Nephrology 2 week after DC. TED OTOOLE OMS-III Nov 26, 2019 18:12 RICARDO VIERA MD Nov 26, 2019 22:09
== END 2019-11-26 14:18 | disposition home or self-care (01) | DRG 291 ==
LOC: M ED 15:52 → M ED INP 19:45 → ENRESERVDT 11-20 12:35 → ENRESERVTM 11-20 12:35 → M MSPAV 11-20 13:19
PROVIDERS: ADMIT Internal Medicine; ATTEND General Practice
DX: I13.0 Hypertensive heart and chronic kidney disease with heart failure and stage 1 through stage 4 chronic kidney disease, or unspecified chronic kidney disease (principal); I50.33 Acute on chronic diastolic (congestive) heart failure; J96.22 Acute and chronic respiratory failure with hypercapnia; N17.9 Acute kidney failure, unspecified; E87.3 Alkalosis; Z68.42 Body mass index [BMI] 45.0-49.9, adult; E66.2 Morbid (severe) obesity with alveolar hypoventilation; J44.1 Chronic obstructive pulmonary disease with (acute) exacerbation; N18.3 Chronic kidney disease, stage 3 (moderate); G47.33 Obstructive sleep apnea (adult) (pediatric); M10.30 Gout due to renal impairment, unspecified site; R63.5 Abnormal weight gain; K21.9 Gastro-esophageal reflux disease without esophagitis; H35.30 Unspecified macular degeneration; Z99.81 Dependence on supplemental oxygen; Z90.12 Acquired absence of left breast and nipple; Z85.3 Personal history of malignant neoplasm of breast; Z90.49 Acquired absence of other specified parts of digestive tract; Z87.891 Personal history of nicotine dependence; Z79.899 Other long term (current) drug therapy; E87.6 Hypokalemia; G25.81 Restless legs syndrome; E78.5 Hyperlipidemia, unspecified; F32.9 Major depressive disorder, single episode, unspecified; M54.9 Dorsalgia, unspecified

== ENCOUNTER 2020-03-12 14:09 | Emergency (ER) | payer MEDICARE ==
[~2020-03-12] VITALS: Ht 167.6 cm; Wt 125.0 kg
[~2020-03-12 14:09] MED LIST changes: +AZEL1SPR3 NARES; +GABA600T4 PO; -LISI-1046 PO; +LISI2.5T2 PO; +SPIR-10 PO; +TORS100T PO; +TORS20TA2 PO; +ZYLO300T6 PO
[2020-03-12] MEDS ORDERED: TORS100T PO (14:23)
[2020-03-12] MEDS ORDERED: LISI2.5T2 PO (14:23)
--- NOTE | 2020-03-12 15:03 | REP ---
PORTABLE CHEST X-RAY: Single view. HISTORY: Syncope/near syncope. COMPARISON CHEST X-RAY: November 24, 2019. FINDINGS: Oxygen delivery tubing and monitoring electrodes are visible. The heart is enlarged. There is linear fibrosis in the left base. There is a new linear zone of parenchymal opacity in the right mid lung zone consistent with plate-like atelectasis. No definite infiltrate. Pulmonary vasculature is not increased. No fracture or bony destructive lesion is appreciated. IMPRESSION: Right perihilar plate-like atelectasis. Linear fibrosis left base. Mild cardiomegaly. Otherwise negative. Electronically Signed by Brian Kidd MD 03/12/2020 03:27 P
[2020-03-12 15:06] LABS: BASO # 0.1 10^3/uL (0.0-0.2); BASO % 0.9 % (0.0-1.0); EOS # 0.1 10^3/uL (0.0-0.5); EOS % 1.6 % (0.0-3.0); HEMATOCRIT 45.5 % (36.0-47.0); HEMOGLOBIN 14.6 g/dl (12.0-15.5); LYMPH # 1.5 10^3/uL (1.5-5.0); LYMPH % 21.7 % (24.0-44.0); MEAN CORPUSCULAR HEMOGLOBIN 30.7 pg (27.0-33.0); MEAN CORPUSCULAR HGB CONC 32.1 g/dl (32.0-36.5); MEAN CORPUSCULAR VOLUME 95.6 fl (80.0-96.0); MONO # 0.6 10^3/uL (0.0-0.8); MONO % 8.6 % (0.0-5.0); NEUTROPHILS # 4.7 10^3/uL (1.5-8.5); NEUTROPHILS % 66.5 % (36.0-66.0); PLATELET COUNT, AUTOMATED 253 10^3/uL (150-450); RED BLOOD COUNT 4.76 10^6/uL (4.00-5.40)
--- NOTE | 2020-03-12 15:25 | REP ---
CT BRAIN WITHOUT CONTRAST: HISTORY: Injury in a fall. Comparison CT study is from July 28, 2019. CT FINDINGS: Digital preliminary professional sports scout radiograph is unremarkable. The patient is edentulous. Bone window settings show an intact bony calvarium. The visualized paranasal sinuses are clear. No intraorbital abnormality is seen. There is minimal generalized volume loss. There are fairly extensive periventricular low density areas bilaterally consistent with small vessel atherosclerotic changes. These are unchanged when compared with the prior study of July 28, 2019. There is no evidence of acute cortical infarction. No hemorrhage is seen. No mass, extra-axial fluid collection or midline shift is observed. IMPRESSION: Generalized volume loss. Microvascular ischemic changes stable from July 28, 2019 prior study. There is no evidence of acute intracranial abnormality. No hemorrhage or acute infarction seen. No skull fracture or intracranial injury. Electronically Signed by Brian Kidd MD 03/12/2020 03:33 P
--- NOTE | 2020-03-12 15:27 | REP ---
CT study of the cervical spine without contrast: History: Injury in a fall. No comparison cervical spine CT study. Technique: Helical scanning is acquired and overlapping 2 mm high resolution axial images were generated and reviewed at bone and soft tissue window settings. Coronal and sagittal multiplanar re-formations images are generated. CT findings: There is no evidence of cervical spine element fracture. No skull base fracture is seen. Cervical vertebral body heights are preserved. Alignment is normal. Facet joints are normally aligned bilaterally at each cervical level on multiplanar re-formations images. There is no evidence of intraspinal or paraspinal hematoma. No extra vertebral abnormality is seen. There are moderate degenerative spondylosis changes. Degenerative disc disease most pronounced at C5-6 and C6-7. There is posterior osteophytic ridging at C5-6 with bilateral uncovertebral spurring and foraminal narrowing. There is a degenerative 3 mm anterolisthesis of C4 on C5 due to degenerative disc disease. There is osteoarthritic facet hypertrophy bilaterally in the mid cervical spine and there is a dextroconvex curvature in the cervical spine on coronal multiplanar re-formation images. There is C1-2 osteoarthritis at the tendons. The lung apices are clear. Mild vascular calcification is seen. Impression: Moderate degenerative spondylosis changes. Otherwise negative CT study of the cervical spine without contrast. No fracture seen. Electronically Signed by Brian Kidd MD 03/12/2020 03:19 P
[2020-03-12 15:38] LABS: BLOOD UREA NITROGEN 32 MG/DL (7-18); CALCIUM LEVEL 9.3 MG/DL (8.8-10.2); CARBON DIOXIDE LEVEL 32 MEQ/L (21-32); CHLORIDE LEVEL 102 MEQ/L (98-107); CK-MB VALUE MASS < 1.0 NG/ML (<3.6); CPK CREATINE PHOSPHOKINASE 59 U/L (26-192); CREATININE FOR GFR 1.35 MG/DL (0.55-1.30); GLOMERULAR FILTRATION RATE 40.9 (>39); GLUCOSE, FASTING 149 MG/DL (70-100); MAGNESIUM LEVEL 2.2 MG/DL (1.8-2.4); MB/CK RELATIVE INDEX 1.69 (< OR =4); POTASSIUM SERUM 4.5 MEQ/L (3.5-5.1); SODIUM LEVEL 141 MEQ/L (136-145); TROPONIN I < 0.02 NG/ML (< 0.10)
[2020-03-12 16:00] VITALS: BP 159/69
[2020-03-12] MEDS ORDERED: Physical Therapy (16:14)
--- NOTE | 2020-03-12 17:52 | ECGEPIP ---
[facility] - ED Test Date: 2020-03-12 Pat Name: ABI DAMIAN Department: Room: - Gender: Female Offal Icer Poultry: matias : 1945 Requested By: ANDREW Parker Order Number: [id number] Reading MD: Jimmy Chambers Measurements Intervals [place] Rate: 79 P: 45 NE: 150 QRS: 5 QRSD: 78 T: 44 QT: 373 QTc: 428 Interpretive Statements SINUS RHYTHM WITH SINUS ARRHYTHMIA SIMILAR TO 11/19/19 Electronically Signed on 03-12-2020 17:52:28 EDT by Jimmy Chambers
== END 2020-03-12 16:30 | disposition home or self-care (01) ==
LOC: M ED 14:09
DX: H81.10 Benign paroxysmal vertigo, unspecified ear (principal); I13.0 Hypertensive heart and chronic kidney disease with heart failure and stage 1 through stage 4 chronic kidney disease, or unspecified chronic kidney disease; I50.9 Heart failure, unspecified; J44.9 Chronic obstructive pulmonary disease, unspecified; G47.33 Obstructive sleep apnea (adult) (pediatric); N18.3 Chronic kidney disease, stage 3 (moderate); H35.30 Unspecified macular degeneration; Z87.891 Personal history of nicotine dependence; Z79.899 Other long term (current) drug therapy

== ENCOUNTER → 2020-12-24 | Outpatient (CLI) | payer MEDICARE ==
[~2020-12-24] MED LIST changes: +BUPR150T12 PO; -BUPR150T3 PO; +CALC1CAP31; -FLUO10CA15 PO; +FLUO10CA16 PO; +GABA-282 PO; -GABA-843 PO; +METF500T13 PO; +Physical Therapy
== END ==
LOC: M LABSMTC 10:04
PROVIDERS: ATTEND Anesthesiology
DX: Z01.812 Encounter for preprocedural laboratory examination (principal); Z20.822 Contact with and (suspected) exposure to COVID-19

== ENCOUNTER 2020-12-29 08:40 | Day surgery (SDC) | payer MEDICARE, MEDICAID ==
[~2020-12-29] VITALS: Ht 167.6 cm; Wt 101.2 kg
[~2020-12-29 08:40] MED LIST changes: +LIDOCAINE 2% 100MG/5ML SDV (FOR ANES.) As Ordered ONE; +NS 1,000 ML IV ONE; +propofoL 200 MG/20 ML VIAL As Ordered ONE
[2020-12-29] MEDS ORDERED: fentaNYL 100 MCG/2 ML INJECTION (J3010) As Ordered ONE (10:22)
[2020-12-29] MEDS ORDERED: propofoL 200 MG/20 ML VIAL As Ordered ONE (10:48)
--- NOTE | 2020-12-29 11:39 | ROOR ---
Patient Name: Savanna Callaway Procedure Date: 12/29/2020 10:21 AM Date of : 1945 Age: 75 Room: [facility] Gender: Female Note Status: Finalized Procedure: Colonoscopy Indications: Hematochezia Providers: Levar Sweet MD Referring MD: Elmer LANTIGUA NP Requesting Provider: Medicines: Monitored Anesthesia Care Complications: No immediate complications. Procedure: Pre-Anesthesia Assessment: - Prior to the procedure, a History and Physical was performed, and patient medications and allergies were reviewed. The patient is competent. The risks and benefits of the procedure and the sedation options and risks were discussed with the patient. All questions were answered and informed consent was obtained. Patient identification and proposed procedure were verified by the physician, the nurse and the anesthesiologist in the procedure room. Mental Status Examination: alert and oriented. Airway Examination: normal oropharyngeal airway and neck mobility. Respiratory Examination: clear to auscultation. CV Examination: normal. Prophylactic Antibiotics: The patient does not require prophylactic antibiotics. Prior Anticoagulants: The patient has taken no previous anticoagulant or antiplatelet agents. ASA Grade Assessment: II - A patient with mild systemic disease. After reviewing the risks and benefits, the patient was deemed in satisfactory condition to undergo the procedure. The anesthesia plan was to use monitored anesthesia care (MAC). Immediately prior to administration of medications, the patient was re-assessed for adequacy to receive sedatives. The heart rate, respiratory rate, oxygen saturations, blood pressure, adequacy of pulmonary ventilation, and response to care were monitored throughout the procedure. The physical status of the patient was re-assessed after the procedure. The Colonoscope was introduced through the anus and advanced to the terminal ileum, with identification of the appendiceal orifice and IC valve. The colonoscopy was performed without difficulty. The patient tolerated the procedure well. The quality of the bowel preparation was good. The ileocecal valve, appendiceal orifice, and rectum were photographed. Scope insertion time was 3 minutes. Scope withdrawal time was 12 minutes. The total duration of the procedure was 16 minutes. Findings: The perianal and digital rectal examinations were normal. One large localized angioectasia with typical arborization was found in the ascending colon. Coagulation for bleeding prevention using argon plasma at 0.8 liters/minute and 20 reese was successful. For hemostasis, two hemostatic clips were successfully placed. There was no bleeding at the end of the procedure. Multiple sessile polyps were found in the recto-sigmoid colon, transverse colon and ascending colon. The polyps were 8 to 15 mm in size. These polyps were removed with a hot snare. Resection and retrieval were complete. Verification of patient identification for the specimen was done by the physician and nurse using the patient's name, date and medical record number. Non-bleeding external and internal hemorrhoids were found during retroflexion. The hemorrhoids were large. Impression: - One colonic angioectasia. Treated with argon plasma coagulation (APC). Clips were placed. - Multiple 8 to 15 mm polyps at the recto-sigmoid colon, in the transverse colon and in the ascending colon, removed with a hot snare. Resected and retrieved. - Non-bleeding external and internal hemorrhoids. Recommendation: - Patient has a contact number available for emergencies. The signs and symptoms of potential delayed complications were discussed with the patient. Return to normal activities tomorrow. Written discharge instructions were provided to the patient. - High fiber diet. - Continue present medications. - Use fiber, for example Citrucel, Fibercon, Konsyl or Metamucil. - Use original regular Metamucil one tablespoon PO daily. - Await pathology results. - Repeat colonoscopy in 1 year for surveillance based on pathology results and for surveillance of multiple polyps. - Return to primary care physician. Procedure Code(s): --- Professional --- 42535, 59, Colonoscopy, flexible; with control of bleeding, any method 99300, Colonoscopy, flexible; with removal of tumor(s), polyp(s), or other lesion(s) by snare technique Diagnosis Code(s): --- Professional --- K55.20, Angiodysplasia of colon without hemorrhage K63.5, Polyp of colon K64.8, Other hemorrhoids K92.1, Melena (includes Hematochezia) CPT copyright 2019 [employer]. All rights reserved. The codes documented in this report are preliminary and upon deal architect review may be revised to meet current compliance requirements. Levar Sweet MD Levar Sweet MD 12/29/2020 11:39:19 AM Electronically signed by Levar Sweet MD Number of Addenda: 0 Note Initiated On: 12/29/2020 10:21 AM Estimated Blood Loss: Estimated blood loss was minimal.
--- NOTE | 2020-12-29 11:40 | ROOR ---
Patient Name: Savanna Callaway Procedure Date: 12/29/2020 10:19 AM Date of : 1945 Age: 75 Room: [facility] Gender: Female Note Status: Finalized Procedure: Upper GI endoscopy Indications: Epigastric abdominal pain Providers: Levar Sweet MD Referring MD: Elmer LANTIGUA NP Requesting Provider: Medicines: Monitored Anesthesia Care Complications: No immediate complications. Procedure: Pre-Anesthesia Assessment: - Prior to the procedure, a History and Physical was performed, and patient medications and allergies were reviewed. The patient is competent. The risks and benefits of the procedure and the sedation options and risks were discussed with the patient. All questions were answered and informed consent was obtained. Patient identification and proposed procedure were verified by the physician, the nurse and the anesthesiologist in the procedure room. Mental Status Examination: alert and oriented. Airway Examination: normal oropharyngeal airway and neck mobility. Respiratory Examination: clear to auscultation. CV Examination: normal. Prophylactic Antibiotics: The patient does not require prophylactic antibiotics. Prior Anticoagulants: The patient has taken no previous anticoagulant or antiplatelet agents. ASA Grade Assessment: II - A patient with mild systemic disease. After reviewing the risks and benefits, the patient was deemed in satisfactory condition to undergo the procedure. The anesthesia plan was to use monitored anesthesia care (MAC). Immediately prior to administration of medications, the patient was re-assessed for adequacy to receive sedatives. The heart rate, respiratory rate, oxygen saturations, blood pressure, adequacy of pulmonary ventilation, and response to care were monitored throughout the procedure. The physical status of the patient was re-assessed after the procedure. The Endoscope was introduced through the mouth, and advanced to the second part of duodenum. The upper GI endoscopy was accomplished without difficulty. The patient tolerated the procedure well. Findings: A medium-sized hiatal hernia was present. The Z-line was irregular and was found 37 cm from the incisors. Scattered mild inflammation characterized by erythema and granularity was found in the gastric antrum. Biopsies were taken with a cold forceps for Helicobacter pylori testing. Verification of patient identification for the specimen was done by the physician and nurse using the patient's name, date and medical record number. Estimated blood loss was minimal. The duodenal bulb and second portion of the duodenum were normal. Impression: - Medium-sized hiatal hernia. - Z-line irregular, 37 cm from the incisors. - Gastritis. Biopsied. - Normal duodenal bulb and second portion of the duodenum. Recommendation: - Patient has a contact number available for emergencies. The signs and symptoms of potential delayed complications were discussed with the patient. Return to normal activities tomorrow. Written discharge instructions were provided to the patient. - High fiber diet. - Continue present medications. - Follow an antireflux regimen. - Await pathology results. - Telephone GI clinic for pathology results in 2 weeks. - Return to primary care physician. Procedure Code(s): --- Professional --- 36995, Esophagogastroduodenoscopy, flexible, transoral; with biopsy, single or multiple Diagnosis Code(s): --- Professional --- K44.9, Diaphragmatic hernia without obstruction or gangrene K22.8, Other specified diseases of esophagus K29.70, Gastritis, unspecified, without bleeding R10.13, Epigastric pain CPT copyright 2019 [employer]. All rights reserved. The codes documented in this report are preliminary and upon hydraulic repairer review may be revised to meet current compliance requirements. Levar Sweet MD Levar Sweet MD 12/29/2020 11:40:17 AM Electronically signed by Levar Sweet MD Number of Addenda: 0 Note Initiated On: 12/29/2020 10:19 AM Estimated Blood Loss: Estimated blood loss was minimal.
[2020-12-29 11:57] VITALS: BP 101/61
== END 2020-12-29 11:56 | disposition home or self-care (01) ==
LOC: M OPP 08:40
PROVIDERS: ATTEND Internal Medicine Gastroenterology
DX: K55.20 Angiodysplasia of colon without hemorrhage (principal); K63.5 Polyp of colon; K64.8 Other hemorrhoids; K92.1 Melena; K44.9 Diaphragmatic hernia without obstruction or gangrene; K22.8 Other specified diseases of esophagus; K29.70 Gastritis, unspecified, without bleeding; R10.13 Epigastric pain; E11.9 Type 2 diabetes mellitus without complications; I10 Essential (primary) hypertension; J44.9 Chronic obstructive pulmonary disease, unspecified; E03.9 Hypothyroidism, unspecified; Z79.84 Long term (current) use of oral hypoglycemic drugs; Z79.899 Other long term (current) drug therapy; Z80.0 Family history of malignant neoplasm of digestive organs; Z80.3 Family history of malignant neoplasm of breast
CPT/HCPCS: 43239; 45382; 45385; 88305; J3010

== ENCOUNTER 2021-01-24 13:54 | Inpatient (IN) | payer MEDICARE, MEDICAID ==
[~2021-01-24] VITALS: Ht 167.6 cm; Wt 133.9 kg
[~2021-01-24 13:54] MED LIST changes: -CALC1CAP31; +CALC1CAP31 PO; -LIDOCAINE 2% 100MG/5ML SDV (FOR ANES.) As Ordered ONE; -NS 1,000 ML IV ONE; -propofoL 200 MG/20 ML VIAL As Ordered ONE
[2021-01-24] MEDS ORDERED: DRIS50003 PO (14:15)
[2021-01-24] MEDS ORDERED: SIME80CH5 PO (14:15)
[2021-01-24] MEDS ORDERED: COMBAER6 INH (14:15)
[2021-01-24] MEDS ORDERED: METO25TA PO (14:15)
[2021-01-24] MEDS ORDERED: POTA1TAB14 PO (14:15)
[2021-01-24] MEDS ORDERED: FISH1000 PO (14:15)
[2021-01-24] MEDS ORDERED: MECLIZINE 25 MG TABLET PO ONE (15:15)
[2021-01-24] MEDS ORDERED: COMBIVENT RESPIMAT 100-20MCG INHALER 4GM INH ONE (15:15)
[2021-01-24] MEDS ORDERED: ACETAMINOPHEN TAB 650MG DOSE (2X325MG) PO ONE (15:20)
[2021-01-24 15:31] LABS: BASO # 0.1 10^3/uL (0.0-0.2); BASO % 0.6 % (0.0-1.0); EOS # 0.2 10^3/uL (0.0-0.5); EOS % 2.2 % (0.0-3.0); HEMATOCRIT 39.2 % (36.0-47.0); HEMOGLOBIN 12.8 g/dl (12.0-15.5); LYMPH # 1.4 10^3/uL (1.5-5.0); MEAN CORPUSCULAR HEMOGLOBIN 31.1 pg (27.0-33.0); MEAN CORPUSCULAR HGB CONC 32.7 g/dl (32.0-36.5); MEAN CORPUSCULAR VOLUME 95.4 fl (80.0-96.0); MONO # 0.9 10^3/uL (0.0-0.8); NEUTROPHILS # 5.2 10^3/uL (1.5-8.5); PLATELET COUNT, AUTOMATED 263 10^3/uL (150-450); RED BLOOD COUNT 4.11 10^6/uL (4.00-5.40); WHITE BLOOD COUNT 7.8 10^3/uL (4.0-10.0)
--- NOTE | 2021-01-24 15:32 | REP ---
INDICATION: headache weak. COMPARISON: 03/05/2017. TECHNIQUE: CT BRAIN PERFORMED IN THE AXIAL PLANE. CORONAL RECONSTRUCTION IMAGES ARE PERFORMED. FINDINGS: Once again there is mild atrophy. There is mild stable chronic bilateral periventricular small vessel ischemic changes in the white matter. There is no midline shift or mass effect. There is no acute intracranial hemorrhage or extra-axial fluid collection. Visualized paranasal sinuses and mastoid air cells are clear with no abnormal opacification. IMPRESSION: Stable chronic findings. No acute intracranial hemorrhage, midline shift or mass effect. <Electronically signed by Hu Pratt > 01/24/21 1529
--- NOTE | 2021-01-24 15:40 | REP ---
INDICATION: SOB. COMPARISON: 03/12/2020. TECHNIQUE: SINGLE PORTABLE AP VIEW OF THE CHEST WAS PERFORMED. FINDINGS: There are bands of fibro atelectatic change in each lung base which appears similar to the prior exam. There is no definite superimposed acute infiltrate. The heart is enlarged. The mediastinal silhouette is unchanged. IMPRESSION: No significant change compared to prior study 03/12/2020, chronic bibasilar fibro atelectatic changes and cardiomegaly. No definite superimposed acute infiltrate. <Electronically signed by Hu Pratt > 01/24/21 1533
[2021-01-24 15:41] LABS: INR 0.98; PROTHROMBIN TIME 13.2 SECONDS (12.5-14.3)
[2021-01-24 15:42] LABS: PARTIAL THROMBOPLASTIN TIME 28.4 SECONDS (24.2-38.5)
[2021-01-24] MEDS ORDERED: NS 500 ML IV ONE (15:50)
[2021-01-24 16:06] LABS: ALBUMIN 3.6 GM/DL (3.2-5.2); ALT/SGPT 42 U/L (12-78); BILIRUBIN,DIRECT 0.2 MG/DL (0.0-0.2); BILIRUBIN,TOTAL 0.6 MG/DL (0.2-1.0); BLOOD UREA NITROGEN 72 MG/DL (7-18); CALCIUM LEVEL 9.4 MG/DL (8.8-10.2); CARBON DIOXIDE LEVEL 29 MEQ/L (21-32); CHLORIDE LEVEL 97 MEQ/L (98-107); CK-MB VALUE MASS 1.3 NG/ML (<3.6); CPK CREATINE PHOSPHOKINASE 97 U/L (26-192); CREATININE FOR GFR 2.07 MG/DL (0.55-1.30); FREE T4 1.18 NG/DL (0.76-1.46); GLOMERULAR FILTRATION RATE 24.9 (>39); GLUCOSE, FASTING 92 MG/DL (70-100); LIPASE 155 U/L (73-393); MB/CK RELATIVE INDEX 1.34 (< OR =4); POTASSIUM SERUM 4.4 MEQ/L (3.5-5.1); SODIUM LEVEL 133 MEQ/L (136-145); TOTAL PROTEIN 7.4 GM/DL (6.4-8.2); TROPONIN I < 0.02 NG/ML (< 0.10)
[2021-01-24 16:22] LABS: RSV AMPLIFICATION NEGATIVE (NEGATIVE)
[2021-01-24] MEDS ORDERED: FLUO20CA22 PO (17:56)
[2021-01-24] MEDS ORDERED: ALLO100T PO (17:56)
[2021-01-24] MEDS ORDERED: ROPI5TAB3 PO (17:56)
[2021-01-24] MEDS ORDERED: GABA-282 PO (17:56)
--- NOTE | 2021-01-24 18:12 | REPVR ---
PROCEDURE INFORMATION: Exam: CT Abdomen And Pelvis Without Contrast Exam date and time: 01/24/2021 4:45 PM Age: 75 years old Clinical indication: Abdominal pain; Localized; Lower; Additional info: Lower abd pain TECHNIQUE: Imaging protocol: Computed tomography of the abdomen and pelvis without contrast. Radiation optimization: All CT scans at this facility use at least one of these dose optimization techniques: automated exposure control; mA and/or kV adjustment per patient size (includes targeted exams where dose is matched to clinical indication); or iterative reconstruction. COMPARISON: CT ABD PELVIS W/O CONTRAST 11/19/2019 6:33 PM FINDINGS: Mediastinal space: Small hiatal hernia. Liver: Normal. No mass. Gallbladder and bile ducts: Normal. No calcified stones. No ductal dilation. Pancreas: Normal. No ductal dilation. Spleen: Normal. No splenomegaly. Adrenal glands: Normal. No mass. Kidneys and ureters: Normal. No hydronephrosis. Stomach and bowel: Unremarkable. No obstruction. No mucosal thickening. Appendix: No evidence of appendicitis. Intraperitoneal space: Unremarkable. No free air. No significant fluid collection. Vasculature: Atherosclerotic calcification of the abdominal aorta and bilateral iliac vessels. Lymph nodes: Unremarkable. No enlarged lymph nodes. Urinary bladder: Unremarkable as visualized. Reproductive: Unremarkable as visualized. Bones/joints: Unremarkable. No acute fracture. Soft tissues: Unremarkable. IMPRESSION: No acute abdominal or pelvic abnormality. Electronically signed by: Bernardo Blackwell On 01/24/2021 18:12:27 PM
[2021-01-24] MEDS: NS 1,000 ML IV SCH (19:59)
[2021-01-24] MEDS: HumaLOG INSULIN (NovoLOG) PER UNIT SC SCH (21:00)
[2021-01-24] MEDS ORDERED: MAALOX 30 ML SUSP *UDC PO PRN (23:00)
[2021-01-24] MEDS ORDERED: MOM 30ML SUSPENSION UDC PO PRN (23:00)
[2021-01-24] MEDS ORDERED: IPRATROPIUM 0.5MG/ALBUTEROL 2.5MG INH SOL UD 3ML (DUONEB) NEB PRN (23:10)
[2021-01-24] MEDS ORDERED: SIMETHICONE 80MG CHEW TAB PO PRN (23:10)
[2021-01-24] MEDS ORDERED: COMBIVENT RESPIMAT 100-20MCG INHALER 4GM INH PRN (23:10)
[2021-01-24] MEDS ORDERED: GLUCAGON INJ 1MG VIAL SC PRN (23:15)
[2021-01-24] MEDS ORDERED: GLUCOSE 4GM CHEW TABLET PO PRN (23:15)
[2021-01-24] MEDS ORDERED: DEXTROSE 50% 50 ML SYRINGE IV PRN (23:15)
[2021-01-24 23:29] LABS: NT-PRO BNP 94 PG/ML (<125)
--- NOTE | 2021-01-24 23:40 | HPEPDOC ---
[facility] Medical History & Physical Date of Admission Jan 24, 2021 Date of Service: Jan 24, 2021 Attending Physician: JOANNA MALCOLM MD History and Physical CHIEF COMPLAINT: Vomiting, weakness, dizziness HISTORY OF PRESENT ILLNESS: Rosa Elena is a pleasant 75yo female w/ notable PMHx of HFpEF, hypertension, CKD III, NIDDM, COPD, BOOM on home NIV, left breat ca s/p mastectomy, and rt eye macular degeneration, who presented to the ED late in the evening on 01/24/21 c/o dizziness, weakness, and nonbloody emesis over the past day. She reports on the overnight of , she has 67 episodes of nonbloody emesis. When she awoke this morning, she felt "really short winded" and weak; describing her fatigue state as if she were a "limp dishrag." She felt like passing out this morning, but never did, and reported dizziness with sensation of the room spinning. She then called her fztelvwa-ew-ror around 7 AM this morning. Patient's nghwpegg-[id number] is a LABORER [employer] and reportedly measured patient's systolic blood pressures in the 200s, later going down to 160. Her heart rate was initially in the 130s and her oxygen saturation was in the mid 80s-low 90s despite receiving 2 L of supplemental oxygen. With her elevated pressures and heart rate, along with her dizziness and weakness, this prompted her [id number] to take her to the ED. Upon presentation to the ED, she reportedly had positive orthostats with relevant labs showing sodium 133, potassium 4.4, BUN 72, creatinine 2.07 (baseline about 1.41.6). A CT head without contrast showed no acute pathology. CT abdomen and pelvis also showed no acute pathology. Portal chest x-ray showed chronic bibasilar fibrotic atelectasis and cardiomegaly with no acute infiltrate. She was administered both her home Combivent inhaler as well as meclizine. She also received 500 mL NS bolus, followed by maintenance NS running at 150 cc/hr. Upon admission evaluation, patient had bilateral lower extremity edema with 2 word dyspnea on room - - which she reports is her baseline. Despite her acute renal failure on [facility] ED, she appeared to have some signs of fluid overload, and thus the admitting hospitalist service contacted the on-call belt brander (Dr. Viera); who cares for patient in the outpatient setting. Dr. Viera recommended holding patient's home antihypertensive and diuretic medications, with plans to formally evaluate her tomorrow. Patient was subsequently admitted under the care of the hospitalist service for acute renal failure and positional vertigo. PAST MEDICAL HISTORY: HFpEF, follows with Dr. Borges of cardiology as outpatient HTN CKD stage III, follows with Dr. Viera of nephrology as outpatient NIDDM COPD, follows with Dr. 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 Former smoker with a [id number] history. (3 packs per day of cigarettes for 60 years; quit smoking in July 2019) FAMILY HISTORY: Multiple family members with breast cancer ALLERGIES: Please see below. REVIEW OF SYSTEMS: CONSTITUTIONAL: Reports significant generalized weakness/fatigue and chills. Denies recent fever, HEENT: Reports intermittent headache, as well as right eye blindness from macular degeneration. CARDIOVASCULAR: Reports intermittent palpitations. Denies chest pain or chest pressure. RESPIRATORY: Denies shortness of breath or increased work of breathing, cough, sputum production, or pleuritic chest pain. Reports are 2 word dyspnea is her baseline. GASTROINTESTINAL: Reports 67 episodes of nonbleeding emesis night prior to presentation with intermittent dry heaves currently GENITOURINARY: Denies dysuria or hematuria MSK: Moderate pain over spine at T12-L1, with additional moderate pain of lumbar paraspinal muscles bilaterally. NEUROLOGICAL: Reports dizziness since the morning HEMATOLOGIC: Denies easy bleeding or bruising LYMPHATIC: Denies any new lumps or bumps HOME MEDICATIONS: Please see below. PHYSICAL EXAMINATION: VITAL SIGNS: Please see below. GENERAL APPEARANCE: Pleasant, elderly, obese female lying upright in bed. Alert and oriented 3. She appears in some mild discomfort. The itching frequently throughout exam HEENT: Normocephalic, atraumatic. Wearing eyeglasses. PERRLA. Noninjected, anicteric sclera. No upper or lower teeth present. Mildly dry mucous membranes, but no pharyngeal erythema or exudate. NECK: Wide girth to neck making it difficult to accurately assess for JVD. No lymphadenopathy appreciated. CARDIOVASCULAR: Borderline tachycardic rate, regular rhythm. Normal S1, S2. Difficult to appreciate for rubs or murmurs due to background breath sounds. LUNGS: 2 word dyspnea on room air. Diminished breath sounds bilaterally with decreased tidal volume. Symmetric chest expansion. ABDOMEN: Obese. No rigidity appreciated. Was no guarding. Some mild abdominal distention with normoactive bowel sounds throughout. EXTREMITIES: 12+ pitting edema of distal right lower extremity with 1+ pitting edema of distal left lower extremity. Some moderate erythema over the dorsal aspect of bilateral feet. No signs of cyanosis. NEUROLOGICAL: Alert and oriented 3. No focal deficits appreciated. No dysarthric speech. PSYCHIATRIC: Pleasant mood. Affect appears appropriate. LABORATORY DATA: Please see below. IMAGING: Portable chest x-ray, 01/24/21- IMPRESSION: No significant change compared to prior study 03/12/2020, chronic bibasilar fibro atelectatic changes and cardiomegaly. No definite superimposed acute infiltrate. CT head without contrast, 01/24/21 FINDINGS: Once again there is mild atrophy. There is mild stable chronic bilateral periventricular small vessel ischemic changes in the white matter. There is no midline shift or mass effect. There is no acute intracranial hemorrhage or extra-axial fluid collection. Visualized paranasal sinuses and mastoid air cells are clear with no abnormal opacification. IMPRESSION: Stable chronic findings. No acute intracranial hemorrhage, midline shift or mass effect. CT abdomen/pelvis without contrast, 01/24/21 IMPRESSION: No acute abdominal or pelvic abnormality. MICROBIOLOGY: Please see below. ASSESSMENT & PLAN: This is a 75yo female w/ notable h/o HFpEF, CKDIII, COPD & BOOM on home NIV, NIDDM, HTN, & left breast CA s/p mastectomy, who presented to the ED on 01/24/21 complaining of generalized weakness, dizziness, and nonbloody emesis for the past 24 hours. She was primarily admitted for acute renal failure superimposed on CKD and positional vertigo. #Acute renal failure on CKD Stage III -intial sCr 2.07, baseline about 1.4-1.6; BUN 72 -Home diuretic and anti-hypertensive medications held -Appeared to be somewhat fluid overloaded on exam, so initial hydration deferred. BNP ordered and pending at time of admission. -Spoke with nephrology (Dr. Viera) who care for patient in outpatient setting. Dr. Viera plans to evaluate patient tomorrow. We thank the nephrology service for further insights and recommendations. -Hold nephrotoxic medications -Urine electrolytes ordered to assess for fractional excretion of sodium and fractional excretion of urea (pt's takes diuretics as outpt) -Renal ultrasound on 11/07/2019 showed tiny is consistent with chronic medical renal disease #Positional vertigo -initial ED orthostats reportedly positive; f/u orthostatic vital signs ordered -PT consultation placed for full evaluation -Fall risk precautions #COPD -Patient reports her 2 word dyspnea is her chronic baseline -Home inhalers continued -O2 titration (88-92%) and continuous pulse ox orders placed #NIDDM -Initial serum glucose 92 -Home metformin held -Sliding-scale insulin with fingersticks ordered before meals and at bedtime; hypoglycemia protocol -CC + 2g Na diet ordered -Home atorvastatin, continued #HFpEF -Signs of possible fluid overload on exam. BNP ordered and pending. -EF 65-70% per last echo on 11/20/2019. #HTN -Home antihypertensives held in the setting of acute renal failure -CC + 2g Na diet ordered #Sleep apnea, on home non-invasive ventilation -Reported as obstructive sleep apnea, although there is a strong possibility for obesity hypoventilation syndrome due to pt's habitus -Patient uses noninvasive ventilation at home, most likely BiPAP; patient is unaware of home settings #History of depression -Home bupropion and fluoxetine continued #DVT prophylaxis: SC Heparin tid, in the setting of acute renal failure and morbid obesity Code Status: Full Code Disposition: Pending resolution of SILVA and PT evaluation for vertigo Vital Signs Vital Signs Date Time Temp Pulse Resp B/P (MAP) Pulse Ox O2 Delivery O2 Flow Rate FiO2 01/24/21 23:01 86 20 124/57 (79) 96 01/24/21 18:39 Room Air 01/24/21 15:18 2.0 01/24/21 13:55 97.9 Laboratory Data Labs 24H Laboratory Tests 2 01/24/21 15:16: Immature Granulocyte % (Auto) 1.2, Neutrophils (%) (Auto) 66.0, Lymphocytes (%) (Auto) 18.0L, Monocytes (%) (Auto) 12.0H, Eosinophils (%) (Auto) 2.2, Basophils (%) (Auto) 0.6, Neutrophils # (Auto) 5.2, Lymphocytes # (Auto) 1.4L, Monocytes # (Auto) 0.9H, Eosinophils # (Auto) 0.2, Basophils # (Auto) 0.1, Nucleated Red Blood Cells % (auto) 0.0, Prothrombin Time 13.2, Prothromb Time International Ratio 0.98, Activated Partial Thromboplast Time 28.4, Anion Gap 7L, Glomerular Filtration Rate 24.9L, Calcium Level 9.4, Magnesium Level 2.0, Total Bilirubin 0.6, Direct Bilirubin 0.2, Aspartate Amino Transf (AST/SGOT) 24, Alanine Aminotransferase (ALT/SGPT) 42, Alkaline Phosphatase 159H, Total Creatine Kinase 97, Creatine Kinase MB 1.3, Creatine Kinase MB Relative Index 1.34, Troponin I < 0.02, CZ-Fcu-P-Type Natriuretic Peptide 94, Total Protein 7.4, Albumin 3.6, Albumin/Globulin Ratio 0.9L, Lipase 155, Thyroid Stimulating Hormone (TSH) 1.030, Free Thyroxine 1.18, Coronavirus (COVID-19)(PCR) NEGATIVE, Influenza Type A (RT-PCR) NEGATIVE, Influenza Type B (RT-PCR) NEGATIVE, Respiratory Syncytial Virus (PCR) NEGATIVE 01/24/21 15:36: Urine Color STRAW, Urine Appearance CLEAR, Urine pH 6.0, Urine Specific [place] 1.005, Urine Protein NEGATIVE, Urine Glucose (UA) NEGATIVE, Urine Ketones NEGATIVE, Urine Blood NEGATIVE, Urine Nitrite NEGATIVE, Urine Bilirubin NEGATIVE, Urine Urobilinogen 0.2, Urine Leukocyte Esterase NEGATIVE, Urine WBC (Auto) 1, Urine RBC (Auto) 2, Urine Hyaline Casts (Auto) 3, Urine Bacteria (Auto) NEGATIVE, Urine Squamous Epithelial Cells 2, Urine Mucus (Auto) SMALL, Urine Sperm (Auto) CBC/BMP Laboratory Tests 01/24/21 15:16 Home Medications Scheduled Allopurinol (Allopurinol) 100 Mg Tablet, 200 MG PO DAILY Atorvastatin Calcium (Atorvastatin Calcium) 40 Mg Tablet, 40 MG PO DAILY Bupropion Hcl (Bupropion Xl) 150 Mg Tab.er.24h, 150 MG PO DAILY Calcitriol (Calcitriol) 0.25 Mcg Capsule, 0.25 MCG PO 2XW MON, FRI Ergocalciferol (Vitamin D2) (Drisdol) 1,250 Mcg Capsule, 50,000 UNITS PO QWEEK SATURDAYS Fluoxetine Hcl (Fluoxetine HCl) 20 Mg Capsule, 20 MG PO DAILY Fluticasone/Umeclidin/Vilanter (Trelegy Ellipta 100-62.5-25) 1 Each Blst.w.dev, 1 PUFF INH DAILY Gabapentin (Gabapentin) 300 Mg Capsule, 300 MG PO BID QAM, NOON Gabapentin (Gabapentin) 300 Mg Capsule, 600 MG PO QHS Metformin HCl (Metformin HCl) 500 Mg Tablet, 500 MG PO BID Bradford-3 Fatty Acids/Fish Oil (Fish Oil 1,000 mg Capsule) 1 Each Capsule, 1,000 MG PO DAILY Omeprazole (Omeprazole) 20 Mg Capsule.dr, 40 MG PO DAILY Potassium Chloride (Potassium Chloride) 20 Meq Tablet.er, 20 MEQ PO 2XW MON, FRI Ropinirole HCl (Ropinirole HCl) 5 Mg Tablet, 5 MG PO QHS Spironolactone (Spironolactone) 25 Mg Tablet, 25 MG PO DAILY MORNING Torsemide (Torsemide) 100 Mg Tablet, 50 MG PO DAILY take 1/2 tab in the morning Scheduled PRN Ipratropium/Albuterol Sulfate (Iprat-Albut 0.5-3(2.5) mg/3 ml) 3 Ml Ampul.neb, 1 VIAL NEB Q6H PRN for SHORTNESS OF BREATH Ipratropium/Albuterol Sulfate (Combivent Respimat 20-100 Mcg) 4 Gm Mist.inhal, 2 PUFF INH QID PRN for SOB/WHEEZING Simethicone (Simethicone) 80 Mg Tab.chew, 80 MG PO TID PRN for GAS PAIN Allergies Coded Allergies: No Known Allergies (Verified , 12/22/20) A-FIB/CHADSVASC A-FIB History Current/History of A-Fib/PAF?: No Current PO Anticoag Therapy: No GME ATTESTATION GME ATTESTATION My faculty preceptor for this patient encounter was physically present during the encounter and was fully available. All aspects of the patient interview, examination, medical decision making process, and medical care plan development were reviewed and approved by the faculty preceptor. The faculty preceptor is aware and concurs with the plan as stated in the body of this note and will attest to such by his/her cosignature. ATTENDING NOTE I, Susan Malcolm, have independently examined this patient and performed my own physical exam, as well as reviewed the documentation and edited where necessary. I have discussed in detail with the resident / student the findings and plan of treatment as documented by the resident / student and edited their note. I agree with their findings and treatment plan and have edited their documentation. I will continue to follow the patient during this hospital stay. LENO WALKER D.O. Jan 24, 2021 23:40 JOANNA MALCOLM MD Jan 27, 2021 04:44
[2021-01-24 23:58] LABS: OSMOLALITY SERUM 300 MOSM/KG (280-301)
[2021-01-25] VITALS (8 sets, daily range): BP systolic 111–130; BP diastolic 51–70
[2021-01-25] MEDS: ACETAMINOPHEN TAB 650MG DOSE (2X325MG) PO PRN ×3 (01:01→18:03)
[2021-01-25] MEDS: NS 1,000 ML IV SCH (01:01)
[2021-01-25] MEDS: ATORVASTATIN 20 MG TAB PO SCH ×2 (01:01→17:59)
[2021-01-25 03:25] LABS: POTASSIUM RANDOM URINE 36.5 MEQ/L
[2021-01-25] MEDS: HEPARIN SOD (PORCINE) 5000UNITS/ML 1ML VIAL/SYRINGE SC SCH ×3 (06:12→23:02)
[2021-01-25 06:25] LABS: HEMATOCRIT 34.9 % (36.0-47.0); HEMOGLOBIN 11.4 g/dl (12.0-15.5); MEAN CORPUSCULAR HEMOGLOBIN 31.3 pg (27.0-33.0); MEAN CORPUSCULAR HGB CONC 32.7 g/dl (32.0-36.5); MEAN CORPUSCULAR VOLUME 95.9 fl (80.0-96.0); PLATELET COUNT, AUTOMATED 204 10^3/uL (150-450); RED BLOOD COUNT 3.64 10^6/uL (4.00-5.40); WHITE BLOOD COUNT 6.2 10^3/uL (4.0-10.0)
[2021-01-25 06:52] LABS: BILIRUBIN,TOTAL 0.6 MG/DL (0.2-1.0); CALCIUM LEVEL 8.5 MG/DL (8.8-10.2); CREATININE FOR GFR 1.91 MG/DL (0.55-1.30); GLOMERULAR FILTRATION RATE 27.3 (>39); TOTAL PROTEIN 6.4 GM/DL (6.4-8.2)
[2021-01-25] MEDS: TIOTROPIUM INHALER/CAPSULE (SPIRIVA) INH SCH (08:29)
[2021-01-25] MEDS: SYMBICORT 160/4.5MCG INHALER 6GM INH SCH ×2 (08:29→21:53)
[2021-01-25] MEDS: allopurinoL 100 MG TAB PO SCH (09:21)
[2021-01-25] MEDS: FLUoxetine 20 MG CAP PO SCH (09:21)
[2021-01-25] MEDS: OMEPRAZOLE 20 MG CAP PO SCH (09:21)
[2021-01-25] MEDS: buPROPion **XL** TABLET 150MG (WELLBUTRIN XL) PO SCH (09:21)
[2021-01-25] MEDS: HumaLOG INSULIN (NovoLOG) PER UNIT SC SCH ×4 (09:22→21:00)
[2021-01-25] MEDS: GABAPENTIN 300 MG CAP PO SCH (13:36)
--- NOTE | 2021-01-25 15:46 | ECGEPIP ---
[facility] - ED Test Date: 2021-01-24 Pat Name: ABI DAMIAN Department: Room: - Gender: Female Skidder Runner: NATHANAEL : 1945 Requested By: JEROME Baker Order Number: [id number] Reading MD: Ernesto Jeter Measurements Intervals [place] Rate: 84 P: 56 SD: 148 QRS: 18 QRSD: 78 T: 59 QT: 354 QTc: 418 Interpretive Statements Normal sinus rhythm Similar to tracing done 03-12-20 Electronically Signed on 01-25-2021 15:45:27 EDT by Ernesto Jeter
--- NOTE | 2021-01-25 20:59 | CR ---
NEPHROLOGY CONSULTATION DATE: 01/25/2021 REQUESTING PHYSICIAN: Dr. Holley Elizondo CONSULTING PHYSICIAN: Dr. Edilberto Viera REASON FOR CONSULTATION: Management of acute renal failure CHIEF COMPLAINT: Patient presented to the hospital yesterday with dizziness, lightheadedness and weakness. HISTORY OF PRESENT ILLNESS: Savanna Callaway is a 75-year-old female with a past medical history of chronic kidney disease, stage 3, baseline creatinine of 1.4. She follows up with myself in the Nephrology Clinic. History of heart failure with a preserved ejection fraction. Multiple other comorbidities as mentioned below. She presented to the hospital Emergency Room yesterday because of dizziness and weakness. She also had vomiting yesterday. She denies any fevers, chills, rigors, cough, phlegm, or dysuria. She had been having vomiting for about 2 days, about 6-7 episodes every day. In The patient Emergency Room the patient was found to be tachycardic. She was orthostatic positive. She was found to have acute renal failure with a creatinine of 2. Her baseline is around 1.4, so she was given 500 mL normal saline bolus. She was admitted under the Hospitalist Service. Admitting behavioral medical director discussed the case with myself yesterday. Antihypertensives and diuretics were held. I saw and evaluated the patient today morning at the bedside. She reports that she is feeling slightly better today as compared with yesterday. PAST MEDICAL HISTORY: The patient's past medical history is significant for: 1. Chronic kidney disease stage 3 baseline creatinine 1.4. 2. Heart failure with preserved ejection fraction. 3. Hypertension. 4. Pulmonary hypertension. 5. Diabetes mellitus type 2, non insulin dependent. 6. Chronic obstructive pulmonary disease. 7. Obstructive sleep apnea on BIPAP. 8. History of COVID-19 infection in September 2020. 9. Breast cancer in the past - status post mastectomy in 2014. 10. Macular degeneration and right eye blindness. 11. Gastroesophageal reflux disease. PAST SURGICAL HISTORY: The patient's past surgical history is significant for: 1. Status post appendectomy. 2. Status post left mastectomy in 2014. ALLERGIES: No known drug allergies. FAMILY HISTORY: Positive family history of breast cancer. No history of end-stage renal disease. SOCIAL HISTORY: The patient lives at home. She is an ex-smoker. She denies any illicit drug abuse or alcohol abuse. REVIEW OF SYSTEMS: Constitutional: The patient reports feeling weak and tired, fatigued. Eyes: She reports right eye blindness. ENT: She denies any dysphagia or odynophagia. Cardiovascular: She reports palpitations and dizziness. Respiratory: She denies any shortness of breath, cough or phlegm. GI: She reports 6-7 episodes of vomiting per day for the last 2 days. Genitourinary: She denies any dysuria or hematuria. Musculoskeletal: She denies any new pain apart from her baseline back pain. Skin: She denies any rashes or ulcers. Hematological/Oncological: She denies any easy bleeding or bruising. VICE PRESIDENT: She reports dizziness and weakness. All other review of systems is negative. PHYSICAL EXAMINATION: GENERAL APPEARANCE: The patient is awake, alert, oriented x3, morbidly obese, laying in bed. VITAL SIGNS: Temperature is 98.2 degrees Fahrenheit, blood pressure is 120/60, pulse is 82, respiratory rate of 90, saturating 96% on nasal cannula at 4 liters. INTAKE AND OUTPUT: Urine output recorded as 2.5 liters since overnight. HEAD AND NECK: Extraocular muscles intact. Pupils are equally round and reactive to light. Mucous membranes are moist. Neck is supple. There is mildly elevated jugular venous noted. CARDIOVASCULAR: S1, S2, regular rate. EXTREMITIES: Trace edema of the bilateral lower extremities. RESPIRATORY: Mildly decreased breath sounds at the bases. Very mild expiratory rhonchi at the bases. ABDOMEN: Soft, obese, positive bowel sounds. I could not appreciate organomegaly. MUSCULOSKELETAL: No clubbing, no cyanosis. Very trace edema of the bilateral lower extremities. VICE PRESIDENT: No focal deficits. Power is 5/5 in all extremities. LAB REVIEW: CBC showed a white blood cell count of 6.2, hemoglobin 11.4, platelet count 204. INR is 0.98. Urinalysis showed no proteinuria, no hematuria. BMP showed sodium 135, potassium 4, chloride 100, bicarbonate 28, BUN 66, creatinine is 1.9. Calcium 8.5. Her BMP on arrival yesterday was: Sodium 133, potassium 4.4, chloride 97, bicarbonate 29, BUN 72, creatinine 2.07, lipase 155. IMAGING: CAT scan of the abdomen and pelvis was done yesterday. It showed no acute intraabdominal pathology. Chest x-ray was also done yesterday. It showed no significant change compared to previous study done in February 2020. Chronic bibasilar fibroatelectatic changes and cardiomegaly. HOME MEDICATIONS: The patient's home medications include: 1. Allopurinol 200 mg daily. 2. Lipitor 40 mg daily. 3. Bupropion 150 mg daily. 4. Calcitriol 0.25 mcg twice weekly. 5. Vitamin D 50,000 units once a week. 6. Fluoxetine 20 mg p.o. daily. 7. Trelegy Ellipta one puff daily. 8. Gabapentin 300 mg p.o. twice daily and 600 mg q. h.s. 9. DuoNebs p.r.n. shortness of breath. 10. Metformin 500 mg p.o. twice daily. 11. Metolazone 2.5 mg p.o. twice weekly. 12. Omeprazole 40 mg p.o. daily. 13. Potassium Chloride 20 mEq twice weekly. 14. Spironolactone 25 mg p.o. twice daily. 15. Torsemide 50 mg p.o. twice daily. CURRENT INPATIENT MEDICATIONS: The patient's inpatient medications include: 1. Normal saline 150 mL an hour for a total of 2 liters. That has already been given. 2. Tylenol p.r.n. 3. DuoNebs p.r.n. 4. Allopurinol 200 mg p.o. daily. 5. Atorvastatin 40 mg p.o. daily. 6. Symbicort 2 puffs twice daily. 7. Bupropion 150 mg p.o. daily. 8. Fluoxetine 20 mg daily. 9. Gabapentin 300 mg p.o. twice daily and 600 mg p.o. q. h.s. 10. Heparin 5,000 units subcutaneously q. 8. 11. Insulin Lispro sliding scale. 12. Milk of Magnesia. 13. Omeprazole 40 mg daily. 14. Requip 5 mg q. h.s. 15. Simethicone p.r.n. 16. Spiriva inhalation twice daily. ASSESSMENT AND PLAN: 1. Acute renal failure superimposed on chronic kidney disease stage 3 baseline creatinine is 1.4. The patient was on high dose diuretics because of decompensated congestive heart failure and mild to moderate pulmonary hypertension. She was slightly volume depleted on exam yesterday. Decision was made to stop the diuretics and hydrate the patient. At this point the patient's volume status looks optimal. She has received about two and a half liters of fluids so far since yesterday. Hold the diuretics at this time. Creatinine is slightly better today as compared with yesterday. 2. Orthostatic hypotension - The patient has diastolic congestive heart failure and moderate pulmonary hypertension. She was volume depleted and likely she is dependent on some pre-load. Orthostatics are better now after holding diuretics and giving IV fluids. 3. Chronic obstructive pulmonary disease - The patient continues to be on inhalers. She continues to be on 02 and she is dependent on BIPAP at home. 4. History of hypertension - blood pressure is within the acceptable range. As mentioned above, diuretics are on hold. 5. Secondary hyperparathyroidism - continue current dose of Calcitriol twice a week. 6. Chronic gout secondary to chronic kidney disease - continue current dose of Allopurinol 200 mg p.o. daily. 7. Diabetes mellitus type 2 the patient's creatinine is high. Hold Metformin unless the creatinine improves below 1.5. Okay to continue insulin sliding scale. 8. Hyponatremia - The patient had hypovolemic hyponatremia. Sodium level is improving after hydration with normal saline and holding diuretics. Thank you for involving me in the care of this patient. I shall be happy to follow the patient along with you tomorrow morning. RAJATD
[2021-01-25] MEDS ORDERED: GABAPENTIN 300 MG CAP PO SCH (21:00)
[2021-01-25] MEDS ORDERED: rOPINIRole 1MG TAB PO SCH (21:00)
--- NOTE | 2021-01-26 00:07 | IPNPDOC ---
Subjective Date Seen The patient was seen on 01/25/21. Subjective Chief Complaint/HPI Feeling better, does not feel dizzy or light headed any more. Objective Physical Examination General Exam: Positive: Alert, Cooperative, No Acute Distress Eye Exam: Positive: PERRLA, Conjunctiva & lids normal, EOMI; Negative: Sclera icteric ENT Exam: Positive: Atraumatic, Pharynx Normal, Tongue Midline Neck Exam: Positive: Supple; Negative: JVD, thyromegaly Chest Exam: Positive: Clear to auscultation, Normal air movement Heart Exam: Positive: Rate Normal, Regular Rhythm, Normal S1, Normal S2; Negative: Murmurs, Rubs Abdomen Exam: Positive: Normal bowel sounds, Soft, Other (obese); Negative: Tenderness Extremity Exam: Negative: Clubbing, Cyanosis, Edema Neuro Exam: Positive: Normal Speech, Strength at 5/5 X4 ext, Normal Tone Psych Exam: Positive: Memory Intact, Oriented x 3 Assessment /Plan Assessment This 75yo female w/ notable PMHx of HFpEF, hypertension, CKD III, NIDDM, COPD/ emphysema, Morbid obesity, BOOM on BIPAP at home, Mod to Severe pulmonary hypertension with corpulmonale, chronic respiratory failure with hypoxia and hypercarbia. left breast ca s/p mastectomy, and rt eye macular degeneration, who presented to the ED late in the evening on 01/24/21 c/o dizziness, weakness, and nonbloody emesis over the past day. She was very weak and fatigued and felt like she was going to pass out. Patient's [id number] is a [employer] and reportedly measured patient's systolic blood pressures in the 200s, later going down to 160. Her heart rate was initially in the 130s and her oxygen saturation was in the mid 80s-low 90s despite receiving 2 L of supplemental oxygen. With her elevated pressures and heart rate, along with her dizziness and weakness, this prompted her [id number] to take her to the ED. In the ED her orthostats were positive and her creatinine was a little elevated from baseline 2.07 (baseline about 1.41.6). A CT head without contrast showed no acute pathology. CT abdomen and pelvis also showed no acute pathology. Portal chest x-ray showed chronic bibasilar fibrotic atelectasis and cardiomegaly with no acute infiltrate. She was administered both her home Combivent inhaler as well as meclizine. and received about 1 liter of fluid. Presyncopal episodes due to orthostatic hypotension likely due to overdiuresis with intravascular volume contraction She has gotted almost 1 Liter of fluid will hold fluid and diuretics for now. Diastolic HFpEF no signs of fluid overload at this time hold diuretics. HTN was hypotensive on presentation Now BP in the low normal range will hold antihypertensives and diuretics. SILVA on CKD stage III, follows with Dr. Viera of nephrology as outpatient clinically appearing dry and intravascularly contracted. No diuretics NIDDM with neuropathy FS Ac and HS levemir and lispro. continue gabapentin. COPD, follows with Dr. Holloway of pulmonology as outpatient symbicort, spiriva in place of trelegy. Morbid obesity/ BOOM, on BIPAP may use own machine. Chronic resp failure with hypoxia and hypercarbia. continue oxygen supplementation and BIPAP H/O COVID infection; initially tested positive on 09/21/20 but did not require hospitalization; felt as if she had a "bad flu" History of left breast cancer status post mastectomy, 2014 Right eye blindness from macular degeneration GERD PPI, simethicone depression fluoxetime, bupropion gout allopurinol RLS ropirirole Plan/VTE VTE Prophylaxis Ordered?: Yes VS, I&O, 24H, Fishbone Vital Signs/I&O Vital Signs Date Time Temp Pulse Resp B/P (MAP) Pulse Ox O2 Delivery O2 Flow Rate FiO2 01/25/21 06:00 98.0 92 20 111/61 (78) 94 Nasal Cannula 2.0 I&O- Last 24 Hours up to 6 AM 01/25/21 06:00 Intake Total 2070 ml Output Total 950 ml Balance 1120 ml Laboratory Data 24H LABS Laboratory Tests 2 01/24/21 15:16: Immature Granulocyte % (Auto) 1.2, Neutrophils (%) (Auto) 66.0, Lymphocytes (%) (Auto) 18.0L, Monocytes (%) (Auto) 12.0H, Eosinophils (%) (Auto) 2.2, Basophils (%) (Auto) 0.6, Neutrophils # (Auto) 5.2, Lymphocytes # (Auto) 1.4L, Monocytes # (Auto) 0.9H, Eosinophils # (Auto) 0.2, Basophils # (Auto) 0.1, Nucleated Red B lood Cells % (auto) 0.0, Prothrombin Time 13.2, Prothromb Time International Ratio 0.98, Activated Partial Thromboplast Time 28.4, Anion Gap 7L, Glomerular Filtration Rate 24.9L, Osmolality 300, Calcium Level 9.4, Magnesium Level 2.0, Total Bilirubin 0.6, Direct Bilirubin 0.2, Aspartate Amino Transf (AST/SGOT) 24, Alanine Aminotransferase (ALT/SGPT) 42, Alkaline Phosphatase 159H, Total Creatine Kinase 97, Creatine Kinase MB 1.3, Creatine Kinase MB Relative Index 1.34, Troponin I < 0.02, JN-Cig-X-Type Natriuretic Peptide 94, Total Protein 7.4, Albumin 3.6, Albumin/Globulin Ratio 0.9L, Lipase 155, Thyroid Stimulating Hormone (TSH) 1.030, Free Thyroxine 1.18, Coronavirus (COVID-19)(PCR) NEGATIVE, Influenza Type A (RT-PCR) NEGATIVE, Influenza Type B (RT-PCR) NEGATIVE, Respiratory Syncytial Virus (PCR) NEGATIVE 01/24/21 15:36: Urine Color STRAW, Urine Appearance CLEAR, Urine pH 6.0, Urine Specific [place] 1.005, Urine Protein NEGATIVE, Urine Glucose (UA) NEGATIVE, Urine Ketones NEGATIVE, Urine Blood NEGATIVE, Urine Nitrite NEGATIVE, Urine Bilirubin NEGATIVE, Urine Urobilinogen 0.2, Urine Leukocyte Esterase NEGATIVE, Urine WBC (Auto) 1, Urine RBC (Auto) 2, Urine Hyaline Casts (Auto) 3, Urine Bacteria (Auto) NEGATIVE, Urine Squamous Epithelial Cells 2, Urine Mucus (Auto) SMALL, Urine Sperm (Auto) 01/25/21 01:01: Bedside Glucose (Misc Panel) 115H 01/25/21 02:43: Urine Osmolality 334, Urine Random Sodium 55, Urine Random Potassium 36.5, Urine Random Urea Nitrogen 381 01/25/21 06:20: Nucleated Red Blood Cells % (auto) 0.0, Anion Gap 7L, Glomerular Filtration Rate 27.3L, Calcium Level 8.5L, Total Bilirubin 0.6, Aspartate Amino Transf (AST/SGOT) 20, Alanine Aminotransferase (ALT/SGPT) 34, Alkaline Phosphatase 133H, Total Protein 6.4, Albumin 3.0L, Albumin/Globulin Ratio 0.9L 01/25/21 11:24: Bedside Glucose (Misc Panel) 128H CBC/BMP Laboratory Tests 01/24/21 15:16 01/25/21 06:20 FABIO NICHOLE MD Jan 25, 2021 13:20
[2021-01-26] MEDS: HEPARIN SOD (PORCINE) 5000UNITS/ML 1ML VIAL/SYRINGE SC SCH (05:17)
[2021-01-26] MEDS: GABAPENTIN 300 MG CAP PO SCH ×2 (05:17→12:22)
[2021-01-26 06:00] VITALS: BP 129/66
[2021-01-26 07:02] LABS: BASO % 0.7 % (0.0-1.0); EOS # 0.1 10^3/uL (0.0-0.5); EOS % 2.4 % (0.0-3.0); HEMATOCRIT 36.9 % (36.0-47.0); HEMOGLOBIN 11.9 g/dl (12.0-15.5); LYMPH # 1.2 10^3/uL (1.5-5.0); LYMPH % 20.6 % (24.0-44.0); MEAN CORPUSCULAR HEMOGLOBIN 31.3 pg (27.0-33.0); MEAN CORPUSCULAR HGB CONC 32.2 g/dl (32.0-36.5); MEAN CORPUSCULAR VOLUME 97.1 fl (80.0-96.0); MONO # 0.5 10^3/uL (0.0-0.8); MONO % 8.6 % (2.0-8.0); NEUTROPHILS # 3.9 10^3/uL (1.5-8.5); NEUTROPHILS % 65.8 % (36.0-66.0); PLATELET COUNT, AUTOMATED 218 10^3/uL (150-450); WHITE BLOOD COUNT 5.9 10^3/uL (4.0-10.0)
[2021-01-26] MEDS: SYMBICORT 160/4.5MCG INHALER 6GM INH SCH (07:21)
[2021-01-26] MEDS: TIOTROPIUM INHALER/CAPSULE (SPIRIVA) INH SCH (07:21)
[2021-01-26 07:34] LABS: CALCIUM LEVEL 9.4 MG/DL (8.8-10.2); CREATININE FOR GFR 1.49 MG/DL (0.55-1.30); GLOMERULAR FILTRATION RATE 36.4 (>39)
[2021-01-26] MEDS: FLUoxetine 20 MG CAP PO SCH (08:00)
[2021-01-26] MEDS: HumaLOG INSULIN (NovoLOG) PER UNIT SC SCH ×2 (08:00→12:22)
[2021-01-26] MEDS: OMEPRAZOLE 20 MG CAP PO SCH (08:01)
[2021-01-26] MEDS: buPROPion **XL** TABLET 150MG (WELLBUTRIN XL) PO SCH (08:01)
[2021-01-26] MEDS: allopurinoL 100 MG TAB PO SCH (08:01)
[2021-01-26] MEDS ORDERED: CALCITRIOL 0.25 MCG CAP (S0169) PO SCH (09:00)
[2021-01-26] MEDS ORDERED: SPIR-10 PO (10:35)
[2021-01-26] MEDS ORDERED: TORS100T PO ×2 (10:35→11:17)
--- NOTE | 2021-01-26 14:06 | IPN ---
[facility] PROGRESS NOTE DATE: 01/26/2021 SUBJECTIVE: Ms. Callaway is seen and examined this morning at the bedside. She feels much better. Her renal function has recovered to baseline. Her diuretics have been on hold since admission. Her dizziness and lightheadedness has resolved. She is looking forward to going home and I discussed her home diuretic regimen with her. OBJECTIVE: VITAL SIGNS: Temperature 97.1, pulse 86, respiratory rate 20, blood pressure 129/66, saturating 96% on 2 liters nasal cannula. INTAKE AND OUTPUT: Intake yesterday was 2730. Urine output yesterday was 2500. Weight in the bed scale today is not recorded. GENERAL: Patient is seen awake, alert, oriented times three, walking around the room in no apparent distress. HEENT: Extraocular muscles are intact. Tongue is moist. Sclerae is anicteric. Neck is supple. Jugular veins are not elevated. HEART SOUNDS: Regular S1, S2. There is no peripheral edema. Peripheral pulses are palpable. LUNGS: Clear to auscultation bilaterally. She is comfortable on room air. ABDOMEN: Soft, obese and nontender. EXTREMITIES: Negative for clubbing, cyanosis or edema. NEUROLOGIC: She is oriented times three, interactive and conversation. SKIN: Normal temperature and turgor. LABORATORY DATA: White count 5.9, hemoglobin 11.9, platelets 218. Sodium 137, potassium 4.0, BUN 49, creatinine 1.4, GFR 36. INPATIENT MEDICATIONS: Reviewed by myself and there are no changes noted as compared to the weekend. PROBLEMS: 1. Diastolic congestive heart failure with preserved ejection fraction. Patient was initially overdiuresed, leading to orthostatic hypotension. She received 1 liter of fluid over the weekend. Her diuretics were held. She is much better now and she is advised to resume a lower home diuretic regimen of torsemide 50 mg once daily and spironolactone 25 mg once daily and to stay off of metolazone. She will need to follow up with nephrology outpatient within one week. 2. Acute kidney injury (SILVA) on chronic kidney disease (CKD) stage IIIB. Her acute kidney injury has resolved. It was secondary to hypovolemia and overdiuresis. She was previously taking torsemide and spironolactone, both twice daily at home, along with twice weekly metolazone. I have now advised her to reduce torsemide and spironolactone to once daily and to hold metolazone until she follows up in the office. 3. Hypertension. Blood pressures are acceptable. Diuretic regimen was adjusted, as previously mentioned and she is on no other antihypertensives at this time. 4. Diabetes mellitus type 2. Her metformin was held because of acute kidney injury. She is now okay to resume it in the outpatient setting, but she needs to follow up in the office within one week for repeat labs. 5. Hypovolemic hyponatremia. It has resolved after diuretics were held and gentle intravenous (IV) fluid for 1 liter was given. DISPOSITION: Patient is stable for discharge from nephrology point of view.
--- NOTE | 2021-01-27 00:46 | DS.PDOC ---
Discharge Summary General Date of Admission Jan 24, 2021 at 22:08 Date of Discharge 01/26/21 Discharge Summary PROCEDURES PERFORMED DURING STAY: [None]. DISCHARGE DIAGNOSES: Presyncope due to orthostatic hypotension due to intravascular volume contraction. SILVA on CKD due to overdiuresis SECONDARY DIAGNOSIS: HFpEF, Hypertension, CKD III, NIDDM, COPD/ emphysema, Morbid obesity, BOOM on BIPAP at home, Mod to Severe pulmonary hypertension with corpulmonale, Chronic respiratory failure with hypoxia and hypercarbia. COVID infection; initially tested positive on 09/21/20 but did not require hospitalization; felt as if she had a "bad flu" History of left breast cancer status post mastectomy, 2014 Right eye blindness from macular degeneration GERD Depression Gout RLS COMPLICATIONS/CHIEF COMPLAINT: Silva,Dizziness,Generalized Weakness. HOSPITAL COURSE: This is a 75yo female w/ notable PMHx of HFpEF, hypertension, CKD III, NIDDM, COPD/ emphysema, Morbid obesity, BOOM on BIPAP at home, Mod to Severe pulmonary hypertension with corpulmonale, chronic respiratory failure with hypoxia and hypercarbia. left breast ca s/p mastectomy, and rt eye macular degeneration, who presented to the ED late in the evening on 01/24/21 c/o dizziness, weakness, and nonbloody emesis over the past day. She was very weak and fatigued and felt like she was going to pass out. Patient's krbmwvie-fw-csy is a [employer] and reportedly measured patient's systolic blood pressures in the 200s, later going down to 160. Her heart rate was initially in the 130s and her oxygen saturation was in the mid 80s-low 90s despite receiving 2 L of supplemental oxygen. With her elevated pressures and heart rate, along with her dizziness and weakness, this prompted her [id number] to take her to the ED. In the ED her orthostats were positive and her creatinine was a little elevated from baseline 2.07 (baseline about 1.41.6). She was admitted for presyncope and Silva on ckd. Presyncopal episode due to orthostatic hypotension due to overdiuresis with intravascular volume contraction Improved after 1 Liter of fluid duiretic dosage reduced, torsemide 50 mg reduced to once a day from bid and spironolactone 25 mg reduced to once a day from twice a day. Metolazone stopped. Diastolic HFpEF Euvolemic at this time HTN was hypotensive on presentation Now BP in the low normal range continue with lower dose of diuretics. SILVA on CKD stage III, follows with Dr. Viera of nephrology as outpatient clinically appearing dry and intravascularly contracted. diuretics reduced. NIDDM with neuropathy FS Ac and HS continue home meds. continue gabapentin. COPD, follows with Dr. Holloway of pulmonology as outpatient continue trelegy. Morbid obesity/ BOOM, on BIPAP Chronic resp failure with hypoxia and hypercarbia. continue oxygen supplementation and BIPAP H/O COVID infection; initially tested positive on 09/21/20 but did not require hospitalization; felt as if she had a "bad flu" History of left breast cancer status post mastectomy, 2014 Right eye blindness from macular degeneration GERD PPI, simethicone depression fluoxetime, bupropion gout allopurinol RLS ropirirole DISCHARGE MEDICATIONS: Please see below. ALLERGIES: Please see below. PHYSICAL EXAMINATION ON DISCHARGE: VITAL SIGNS: Please see below. General Exam: Positive: Alert, Cooperative, No Acute Distress Eye Exam: Positive: PERRLA, Conjunctiva & lids normal, EOMI; Negative: Sclera icteric ENT Exam: Positive: Atraumatic, Pharynx Normal, Tongue Midline Neck Exam: Positive: Supple; Negative: JVD, thyromegaly Chest Exam: Positive: Clear to auscultation, Normal air movement Heart Exam: Positive: Rate Normal, Regular Rhythm, Normal S1, Normal S2; Negative: Murmurs, Rubs Abdomen Exam: Positive: Normal bowel sounds, Soft, Other (obese); Negative: Tenderness Extremity Exam: Negative: Clubbing, Cyanosis, Edema Neuro Exam: Positive: Normal Speech, Strength at 5/5 X4 ext, Normal Tone Psych Exam: Positive: Memory Intact, Oriented x 3 LABORATORY DATA: Please see below. ACTIVITY: [As tolerated]. DIET: crb consistent , fluid restriction 1.5 liters. DISPOSITION: 01 Home, Self-Care. DISCHARGE INSTRUCTIONS: Follow up with Dr Viera in 1 week, PMD in 2 weeks. DISCHARGE CONDITION: [Stable]. TIME SPENT ON DISCHARGE: 40 minutes. Vital Signs/I&Os Vital Signs Date Time Temp Pulse Resp B/P (MAP) Pulse Ox O2 Delivery O2 Flow Rate FiO2 01/26/21 09:00 2.0 01/26/21 06:00 97.1 86 20 129/66 (87) 96 Nasal Cannula I&O- Last 24 Hours up to 6 AM 01/26/21 07:00 Intake Total 1260 ml Output Total 1550 ml Balance -290 ml Laboratory Data Labs 24H Laboratory Tests 2 01/26/21 05:27: Immature Granulocyte % (Auto) 1.9, Neutrophils (%) (Auto) 65.8, Lymphocytes (%) (Auto) 20.6L, Monocytes (%) (Auto) 8.6H, Eosinophils (%) (Auto) 2.4, Basophils (%) (Auto) 0.7, Neutrophils # (Auto) 3.9, Lymphocytes # (Auto) 1.2L, Monocytes # (Auto) 0.5, Eosinophils # (Auto) 0.1, Basophils # (Auto) 0.0, Nucleated Red Blood Cells % (auto) 0.0, Anion Gap 8, Glomerular Filtration Rate 36.4L, Calcium Level 9.4 01/26/21 11:47: Bedside Glucose (Misc Panel) 160H CBC/BMP Laboratory Tests 01/26/21 05:27 FSBS Laboratory Tests Test 01/26/21 11:47 Range/Units Bedside Glucose (Misc Panel) 160 83-110 MG/DL Discharge Medications Scheduled Allopurinol (Allopurinol) 100 Mg Tablet, 200 MG PO DAILY, (Reported) Atorvastatin Calcium (Atorvastatin Calcium) 40 Mg Tablet, 40 MG PO DAILY, (Reported) Bupropion Hcl (Bupropion Xl) 150 Mg Tab.er.24h, 150 MG PO DAILY, (Reported) Calcitriol (Calcitriol) 0.25 Mcg Capsule, 0.25 MCG PO 2XW, (Reported) TUE, TUE Ergocalciferol (Vitamin D2) (Drisdol) 1,250 Mcg Capsule, 50,000 UNITS PO QWEEK, (Reported) SATURDAYS Fluoxetine Hcl (Fluoxetine HCl) 20 Mg Capsule, 20 MG PO DAILY, (Reported) Fluticasone/Umeclidin/Vilanter (Trelegy Ellipta 100-62.5-25) 1 Each Blst.w.dev, 1 PUFF INH DAILY, (Reported) Gabapentin (Gabapentin) 300 Mg Capsule, 300 MG PO BID, (Reported) QAM, NOON Gabapentin (Gabapentin) 300 Mg Capsule, 600 MG PO QHS, (Reported) Metformin HCl (Metformin HCl) 500 Mg Tablet, 500 MG PO BID, (Reported) [place]-3 Fatty Acids/Fish Oil (Fish Oil 1,000 mg Capsule) 1 Each Capsule, 1,000 MG PO DAILY, (Reported) Omeprazole (Omeprazole) 20 Mg Capsule.dr, 40 MG PO DAILY, (Reported) Potassium Chloride (Potassium Chloride) 20 Meq Tablet.er, 20 MEQ PO 2XW, (Reported) MON, FRI Ropinirole HCl (Ropinirole HCl) 5 Mg Tablet, 5 MG PO QHS, (Reported) Spironolactone (Spironolactone) 25 Mg Tablet, 25 MG PO DAILY MORNING Torsemide (Torsemide) 100 Mg Tablet, 50 MG PO DAILY take 1/2 tab in the morning Scheduled PRN Ipratropium/Albuterol Sulfate (Iprat-Albut 0.5-3(2.5) mg/3 ml) 3 Ml Ampul.neb, 1 VIAL NEB Q6H PRN for SHORTNESS OF BREATH, (Reported) Ipratropium/Albuterol Sulfate (Combivent Respimat 20-100 Mcg) 4 Gm Mist.inhal, 2 PUFF INH QID PRN for SOB/WHEEZING, (Reported) Simethicone (Simethicone) 80 Mg Tab.chew, 80 MG PO TID PRN for GAS PAIN, (Reported) Allergies Coded Allergies: No Known Allergies (Verified , 12/22/20) FABIO NICHOLE MD Jan 27, 2021 00:46
[2021-01-31] MEDS ORDERED: VITAMIN D 50,000 UNITS CAPSULE (ERGOCALCIFEROL 1.25MG) PO SCH (09:00)
== END 2021-01-26 12:29 | disposition home or self-care (01) | DRG 683 ==
LOC: M ED 13:54 → M ED INP 22:08 → ENRESERV 22:53 → M MSPAV 01-25 00:31
PROVIDERS: ADMIT Family Medicine; ATTEND Internal Medicine Nephrology
DX: N17.9 Acute kidney failure, unspecified (principal); I13.0 Hypertensive heart and chronic kidney disease with heart failure and stage 1 through stage 4 chronic kidney disease, or unspecified chronic kidney disease; I50.32 Chronic diastolic (congestive) heart failure; J96.11 Chronic respiratory failure with hypoxia; E87.1 Hypo-osmolality and hyponatremia; Z68.42 Body mass index [BMI] 45.0-49.9, adult; N18.30 Chronic kidney disease, stage 3 unspecified; E11.22 Type 2 diabetes mellitus with diabetic chronic kidney disease; J44.9 Chronic obstructive pulmonary disease, unspecified; G47.33 Obstructive sleep apnea (adult) (pediatric); H35.30 Unspecified macular degeneration; H54.61 Unqualified visual loss, right eye, normal vision left eye; H81.10 Benign paroxysmal vertigo, unspecified ear; F32.9 Major depressive disorder, single episode, unspecified; R11.10 Vomiting, unspecified; I95.1 Orthostatic hypotension; I27.29 Other secondary pulmonary hypertension; E11.40 Type 2 diabetes mellitus with diabetic neuropathy, unspecified; E66.01 Morbid (severe) obesity due to excess calories; K21.9 Gastro-esophageal reflux disease without esophagitis; G25.81 Restless legs syndrome; Z87.891 Personal history of nicotine dependence; Z20.822 Contact with and (suspected) exposure to COVID-19; Z90.49 Acquired absence of other specified parts of digestive tract; Z86.16 Personal history of COVID-19; Z90.12 Acquired absence of left breast and nipple; Z85.3 Personal history of malignant neoplasm of breast; Z79.84 Long term (current) use of oral hypoglycemic drugs; Z79.899 Other long term (current) drug therapy

== ENCOUNTER → 2021-07-13 | Outpatient (REF) | payer MEDICARE, MEDICAID ==
[~2021-07-13] MED LIST changes: +ALLO100T PO; +COMBAER6 INH; +DRIS50003 PO; +FISH1000 PO; +FLUO20CA22 PO; -LISI2.5T2 PO; +LISI2.5T9 PO; +METO25TA PO; +POTA1TAB14 PO; +ROPI5TAB3 PO; +SIME80CH5 PO
== END ==
LOC: M LAB REF 18:44
PROVIDERS: ATTEND Internal Medicine Nephrology
DX: N18.4 Chronic kidney disease, stage 4 (severe) (principal)

== ENCOUNTER → 2021-08-26 | Outpatient (REF) | payer MEDICARE, MEDICAID | LOC: M LAB REF 16:41 | PROVIDERS: ATTEND Internal Medicine Nephrology | DX: N18.32 Chronic kidney disease, stage 3b (principal) ==

== ENCOUNTER → 2022-07-26 | Outpatient (CLI) | payer MEDICARE, MEDICAID ==
[~2022-07-26] MED LIST changes: -FLUO10CA16 PO; +FLUO10CA18 PO; +JANU25TA; +OMEG10002 PO; +OMEP-173 PO; -OMEP-218 PO; +OZEM2INJ SC
== END ==
LOC: M LABSMTC 11:21
PROVIDERS: ATTEND Anesthesiology
DX: Z01.812 Encounter for preprocedural laboratory examination (principal); Z20.822 Contact with and (suspected) exposure to COVID-19

== ENCOUNTER 2022-07-28 09:31 | Day surgery (SDC) | payer MEDICAID, MEDICARE ==
[~2022-07-28] VITALS: Ht 167.6 cm; Wt 104.3 kg
[~2022-07-28 09:31] MED LIST changes: +BSS IRRIG/VANCO(10MG)/TOBRA(5MG)/EPINEPH(1:1000-0.5CC)500ML BAG-ORONLY IR ONE; +CEFUROXIME 1MG/0.1ML INTRACAMERAL INJ As Ordered ONE; +CYCLOPENTOLATE 1% OPHTH SOLN 2 ML BTL OS SCH; +LIDOCAINE 1% SDV 5ML VIAL As Ordered ONE; +LIDOCAINE 3.5 % 1ML OPHTH TOPICAL GEL OU ONE; +MIDAZOLAM INJ 2MG/2ML VIAL (J2250 PER 1MG) As Ordered ONE; +OFLOXACIN 0.3 % (OCUFLOX) OPTH SOL 5ML OS ONE; +PHENYLEPHRINE 2.5% OPHTH SOL 2ML OS SCH; +PHENYLEPHRINE HCL 10 % OPHTH. SOL 5ML OS PRN; +TROPICAMIDE 1% OPHTH SOLN 2ML OS SCH; +fentaNYL 100 MCG/2 ML INJECTION As Ordered ONE
[2022-07-28 11:55] VITALS: BP 132/63
[2022-08-02] MEDS ORDERED: METO25TA PO (09:44)
[2022-08-02] MEDS ORDERED: RA B1TAB2 PO (09:45)
[2022-08-02] MEDS ORDERED: COLA100C5 PO (09:45)
== END 2022-07-28 12:25 | disposition home or self-care (01) ==
LOC: M SDC 09:31
PROVIDERS: ATTEND Ophthalmology
DX: H25.9 Unspecified age-related cataract (principal); I10 Essential (primary) hypertension; E11.9 Type 2 diabetes mellitus without complications; J44.9 Chronic obstructive pulmonary disease, unspecified
CPT/HCPCS: 66984; J0697; J2250; J3010; V2632

== ENCOUNTER 2022-08-04 06:21 | Day surgery (SDC) | payer MEDICARE ==
[~2022-08-04] VITALS: Ht 167.6 cm; Wt 108.9 kg
[~2022-08-04 06:21] MED LIST changes: -CEFUROXIME 1MG/0.1ML INTRACAMERAL INJ As Ordered ONE; +COLA100C5 PO; +CYCLOPENTOLATE 1% OPHTH SOLN 2 ML BTL OD SCH; -CYCLOPENTOLATE 1% OPHTH SOLN 2 ML BTL OS SCH; -LIDOCAINE 1% SDV 5ML VIAL As Ordered ONE; -MIDAZOLAM INJ 2MG/2ML VIAL (J2250 PER 1MG) As Ordered ONE; +OFLOXACIN 0.3 % (OCUFLOX) OPTH SOL 5ML OD ONE; -OFLOXACIN 0.3 % (OCUFLOX) OPTH SOL 5ML OS ONE; +PHENYLEPHRINE 2.5% OPHTH SOL 2ML OD SCH; -PHENYLEPHRINE 2.5% OPHTH SOL 2ML OS SCH; +PHENYLEPHRINE HCL 10 % OPHTH. SOL 5ML OD PRN; -PHENYLEPHRINE HCL 10 % OPHTH. SOL 5ML OS PRN; +RA B1TAB2 PO; +TROPICAMIDE 1% OPHTH SOLN 2ML OD SCH; -TROPICAMIDE 1% OPHTH SOLN 2ML OS SCH; -fentaNYL 100 MCG/2 ML INJECTION As Ordered ONE
[2022-08-04] MEDS ORDERED: LIDOCAINE 1% SDV 5ML VIAL As Ordered ONE (06:38)
[2022-08-04] MEDS ORDERED: CEFUROXIME 1MG/0.1ML INTRACAMERAL INJ As Ordered ONE (06:39)
[2022-08-04] MEDS ORDERED: MIDAZOLAM INJ 2MG/2ML VIAL (J2250 PER 1MG) As Ordered ONE (07:08)
[2022-08-04] MEDS ORDERED: fentaNYL 100 MCG/2 ML INJECTION As Ordered ONE (07:08)
[2022-08-04 08:08] VITALS: BP 133/63
== END 2022-08-04 08:30 | disposition home or self-care (01) ==
LOC: M SDC 06:21
PROVIDERS: ATTEND Ophthalmology
DX: H25.11 Age-related nuclear cataract, right eye (principal); I10 Essential (primary) hypertension; E78.5 Hyperlipidemia, unspecified; R60.0 Localized edema; E11.9 Type 2 diabetes mellitus without complications; D64.9 Anemia, unspecified; Z79.899 Other long term (current) drug therapy; Z79.84 Long term (current) use of oral hypoglycemic drugs; E03.9 Hypothyroidism, unspecified; M10.9 Gout, unspecified; K21.9 Gastro-esophageal reflux disease without esophagitis; L40.9 Psoriasis, unspecified; J44.9 Chronic obstructive pulmonary disease, unspecified; K44.9 Diaphragmatic hernia without obstruction or gangrene; Z87.891 Personal history of nicotine dependence; M79.7 Fibromyalgia; N18.30 Chronic kidney disease, stage 3 unspecified; Z85.3 Personal history of malignant neoplasm of breast
CPT/HCPCS: 66984; 87635; J0697; J2250; J3010; V2632

== ENCOUNTER 2022-08-05 08:07 | Emergency (ER) | payer MEDICARE, MEDICAID ==
[~2022-08-05] VITALS: Ht 167.6 cm; Wt 110.9 kg
[~2022-08-05 08:07] MED LIST changes: -BSS IRRIG/VANCO(10MG)/TOBRA(5MG)/EPINEPH(1:1000-0.5CC)500ML BAG-ORONLY IR ONE; -CYCLOPENTOLATE 1% OPHTH SOLN 2 ML BTL OD SCH; -LIDOCAINE 3.5 % 1ML OPHTH TOPICAL GEL OU ONE; -OFLOXACIN 0.3 % (OCUFLOX) OPTH SOL 5ML OD ONE; -PHENYLEPHRINE 2.5% OPHTH SOL 2ML OD SCH; -PHENYLEPHRINE HCL 10 % OPHTH. SOL 5ML OD PRN; -TROPICAMIDE 1% OPHTH SOLN 2ML OD SCH
[2022-08-05] MEDS ORDERED: BOOSTRIX/ADACEL VACCINE (DIPHTH/PERTUSS/ACELL/TETANUS) 0.5ML SYR IM.IMMUN ONE (09:45)
[2022-08-05] MEDS ORDERED: DERMABOND TOPICAL SKIN ADHESIVE TOP ONE (10:55)
[2022-08-05 11:15] VITALS: BP 131/63
== END 2022-08-05 11:57 | disposition home or self-care (01) ==
LOC: M ED 08:07
DX: S01.01XA Laceration without foreign body of scalp, initial encounter (principal); S69.91XA Unspecified injury of right wrist, hand and finger(s), initial encounter; W18.39XA Other fall on same level, initial encounter; Y92.099 Unspecified place in other non-institutional residence as the place of occurrence of the external cause; I50.9 Heart failure, unspecified; E11.9 Type 2 diabetes mellitus without complications; I10 Essential (primary) hypertension; J44.9 Chronic obstructive pulmonary disease, unspecified; G47.33 Obstructive sleep apnea (adult) (pediatric); Z85.3 Personal history of malignant neoplasm of breast; Z79.899 Other long term (current) drug therapy

== ENCOUNTER 2022-09-14 11:56 | Inpatient (IN) | payer MEDICAID, MEDICARE, OTHER ==
[~2022-09-14] VITALS: Ht 167.6 cm; Wt 105.4 kg
[~2022-09-14 11:56] MED LIST changes: -JANU25TA; +JANU25TA PO
[2022-09-14 13:24] LABS: BASO # 0.1 10^3/uL (0.0-0.2); BASO % 0.7 % (0.0-1.0); EOS # 0.2 10^3/uL (0.0-0.5); EOS % 1.6 % (0.0-3.0); HEMATOCRIT 42.4 % (36.0-47.0); HEMOGLOBIN 13.4 g/dl (12.0-15.5); LYMPH # 1.6 10^3/uL (1.5-5.0); LYMPH % 15.6 % (24.0-44.0); MEAN CORPUSCULAR HEMOGLOBIN 29.9 pg (27.0-33.0); MEAN CORPUSCULAR HGB CONC 31.6 g/dl (32.0-36.5); MEAN CORPUSCULAR VOLUME 94.6 fl (80.0-96.0); MONO # 1.1 10^3/uL (0.0-0.8); MONO % 11.2 % (2.0-8.0); NEUTROPHILS # 6.8 10^3/uL (1.5-8.5); NEUTROPHILS % 68.7 % (36.0-66.0); PLATELET COUNT, AUTOMATED 316 10^3/uL (150-450); RED BLOOD COUNT 4.48 10^6/uL (4.00-5.40)
[2022-09-14] MEDS ORDERED: FIBE625T PO (13:53)
[2022-09-14] MEDS ORDERED: PREDOPD OU (13:53)
[2022-09-14] MEDS ORDERED: MUCI600T31 PO (13:53)
[2022-09-14] MEDS ORDERED: TRAM50TA2 PO (13:53)
[2022-09-14 14:01] LABS: RSV AMPLIFICATION NEGATIVE (NEGATIVE)
[2022-09-14 14:03] LABS: CARBON DIOXIDE LEVEL 34 MMOL/L (20-31); CHLORIDE LEVEL 85 MMOL/L (98-107); POTASSIUM SERUM 3.3 MMOL/L (3.5-5.1); SODIUM LEVEL 133 MMOL/L (136-145)
[2022-09-14] MEDS ORDERED: IPRATROPIUM 0.5MG/ALBUTEROL 2.5MG INH SOL UD 3ML (DUONEB) NEB ONE (14:05)
[2022-09-14 14:08] LABS: BLOOD UREA NITROGEN 97 MG/DL (9-23)
[2022-09-14 14:09] LABS: CALCIUM LEVEL 10.8 MG/DL (8.3-10.6); CK-MB VALUE MASS < 1.0 NG/ML (<3.6); GLUCOSE, FASTING 92 MG/DL (74-106)
[2022-09-14 14:11] LABS: CPK CREATINE PHOSPHOKINASE 79 U/L (34-145); CREATININE FOR GFR 2.17 MG/DL (0.55-1.30); GLOMERULAR FILTRATION RATE 23.5 (>39); MB/CK RELATIVE INDEX 1.26 (< OR =4)
[2022-09-14 14:13] LABS: THYROID STIMULATING HORMONE 1.706 uIU/ML (0.55-4.78)
[2022-09-14 14:23] LABS: VENOUS BASE EXCESS 9.8 (-2.0-2.0); VENOUS O2 SATURATION 94.1 % (60.0-80.0); VENOUS PARTIAL PRESSURE CO2 48.5 mmHg (38.0-50.0); VENOUS PARTIAL PRESSURE O2 65.5 mmHg (30.0-50.0); VENOUS PH 7.476 UNITS (7.330-7.430); VENOUS STANDARD HCO3 33.5 MEQ/L; VENOUS TOTAL CO2 36.5 MEQ/L (24.0-28.0)
[2022-09-14] MEDS ORDERED: COMBIVENT RESPIMAT 100-20MCG INHALER 4GM INH STA (14:25)
[2022-09-14] MEDS ORDERED: NS 500 ML IV ONE (14:40)
[2022-09-14] MEDS ORDERED: POTASSIUM CHLORIDE 10MEQ SR TABLET PO ONE (15:05)
[2022-09-14] MEDS ORDERED: cefTRIAXone SOD 1 GM in D5W MINI-BAG PLUS 50 ML IV ONE (15:40)
[2022-09-14] MEDS ORDERED: methylPREDNISolone 125MG 2ML VIAL IV ONE (15:50)
[2022-09-14] MEDS ORDERED: GLUCOSE 4GM CHEW TABLET PO PRN (17:20)
[2022-09-14] MEDS ORDERED: DEXTROSE 50% 50 ML SYRINGE IV PRN (17:20)
[2022-09-14] MEDS ORDERED: GLUCAGON INJ 1MG VIAL SC PRN (17:20)
[2022-09-14] MEDS: INSULIN LISPRO (NovoLOG) PER UNIT SC SCH (17:30)
[2022-09-14] MEDS ORDERED: TORS100T PO (17:32)
[2022-09-14] MEDS ORDERED: ALLO300T2 PO (17:32)
[2022-09-14] MEDS ORDERED: OMEP40CA5 PO (17:32)
[2022-09-14] MEDS ORDERED: SPIR-10 PO (17:32)
[2022-09-14] MEDS: NS 1,000 ML IV SCH (17:33)
[2022-09-14] MEDS ORDERED: HOME MED LIST COMPLETE! XX SCH (17:35)
[2022-09-14 19:23] LABS: ALBUMIN 3.5 G/DL (3.2-5.2); D-DIMER QUANT 541.28 ng/ml (<500)
[2022-09-14 19:30] LABS: BILIRUBIN,DIRECT 0.2 MG/DL (<0.4); BILIRUBIN,TOTAL 0.7 MG/DL (0.3-1.2); TOTAL PROTEIN 7.1 G/DL (5.7-8.2)
[2022-09-14] MEDS: SYMBICORT 160/4.5MCG INHALER 6GM INH SCH (21:14)
[2022-09-14 22:00] VITALS: BP 113/62
[2022-09-14] MEDS: rOPINIRole 1MG TAB PO SCH (22:36)
[2022-09-14] MEDS: allopurinoL 100 MG TAB PO SCH (22:36)
[2022-09-15] VITALS (12 sets, daily range): BP systolic 118–132; BP diastolic 57–76; O2SAT 88–92
[2022-09-15] MEDS ORDERED: ACETAMINOPHEN TAB 650MG DOSE (2X325MG) PO PRN (00:25)
[2022-09-15] MEDS: INSULIN LISPRO (NovoLOG) PER UNIT SC SCH ×5 (00:48→21:19)
[2022-09-15] MEDS: ALBUTEROL 90 MCG/ACT 8GM HFA INHALER INH PRN ×3 (02:50→12:15)
[2022-09-15] MEDS: ONDANSETRON 4MG 2ML VIAL IV PRN ×2 (05:20→12:23)
[2022-09-15] MEDS: NS 1,000 ML IV SCH (06:39)
[2022-09-15] MEDS: TIOTROPIUM INHALER/CAPSULE (SPIRIVA) INH SCH (07:16)
[2022-09-15] MEDS: SYMBICORT 160/4.5MCG INHALER 6GM INH SCH ×2 (07:16→20:13)
[2022-09-15 07:44] LABS: BASO % 0.5 % (0.0-1.0); HEMATOCRIT 35.7 % (36.0-47.0); HEMOGLOBIN 11.5 g/dl (12.0-15.5); LYMPH # 0.8 10^3/uL (1.5-5.0); LYMPH % 8.4 % (24.0-44.0); MEAN CORPUSCULAR HEMOGLOBIN 30.8 pg (27.0-33.0); MEAN CORPUSCULAR HGB CONC 32.2 g/dl (32.0-36.5); MEAN CORPUSCULAR VOLUME 95.7 fl (80.0-96.0); MONO # 0.3 10^3/uL (0.0-0.8); MONO % 2.9 % (2.0-8.0); NEUTROPHILS # 7.6 10^3/uL (1.5-8.5); NEUTROPHILS % 85.2 % (36.0-66.0); PLATELET COUNT, AUTOMATED 273 10^3/uL (150-450); RED BLOOD COUNT 3.73 10^6/uL (4.00-5.40); WHITE BLOOD COUNT 8.9 10^3/uL (4.0-10.0)
[2022-09-15 08:13] LABS: CREATININE FOR GFR 2.03 MG/DL (0.55-1.30); GLOMERULAR FILTRATION RATE 25.4 (>39)
[2022-09-15 08:24] LABS: POTASSIUM SERUM 3.6 MMOL/L (3.5-5.1)
[2022-09-15] MEDS: SENOKOT S TAB PO SCH ×2 (09:00→21:18)
[2022-09-15] MEDS: PANTOPRAZOLE 40MG VIAL IV SCH (10:02)
[2022-09-15] MEDS: buPROPion **XL** TABLET 150MG (WELLBUTRIN XL) PO SCH (10:03)
[2022-09-15] MEDS: GABAPENTIN 100 MG CAP PO SCH ×2 (10:03→21:18)
[2022-09-15] MEDS: HEPARIN SOD (PORCINE) 5000UNITS/ML 1ML VIAL/SYRINGE SC SCH ×2 (10:04→21:17)
[2022-09-15] MEDS ORDERED: BISACODYL 10 MG SUPP PR PRN (11:35)
[2022-09-15] MEDS: IPRATROPIUM 0.5MG/ALBUTEROL 2.5MG INH SOL UD 3ML (DUONEB) NEB SCH ×5 (12:15→23:36)
[2022-09-15] MEDS: MIRALAX *UNIT DOSE* 17GM PACKET PO SCH (12:22)
[2022-09-15 12:40] LABS: ABG BASE EXCESS 6.5 (-2.0-2.0); ABG HCO3 32.6 MEQ/L (22.0-26.0); ABG PARTIAL PRESSURE CO2 52.8 mmHg (35.0-45.0); ABG PARTIAL PRESSURE O2 81.7 mmHg (75.0-100.0); ABG STANDARD HCO3 30.4 MEQ/L (22.0-26.0); ABG TOTAL CO2 34.2 MEQ/L (23.0-31.0); ABG pH (ARTERIAL) 7.408 UNITS (7.350-7.450)
[2022-09-15] MEDS ORDERED: FUROSEMIDE 100MG/10ML VIAL (J1940) IV ONE (13:00)
[2022-09-15] MEDS: PIPERACILLIN/TAZOBACTAM SOD 3.375 GM in D5W MINI-BAG PLUS 50 ML IV SCH ×2 (15:01→21:16)
[2022-09-15] MEDS ORDERED: cefTRIAXone SOD 1 GM in D5W MINI-BAG PLUS 50 ML IV SCH (16:00)
[2022-09-15] MEDS ORDERED: VANCOMYCIN HCL 1,000 MG, VIAL MATE ADAPTER 1 EACH in NS 250 ML IV SCH (16:00)
[2022-09-15] MEDS ORDERED: VANCOMYCIN HCL 750 MG, VIAL MATE ADAPTER 1 EACH in D5W 250 ML IV ONE (20:00)
[2022-09-15] MEDS: rOPINIRole 1MG TAB PO SCH (21:18)
[2022-09-15] MEDS: allopurinoL 100 MG TAB PO SCH (21:18)
[2022-09-15] MEDS: LEVEMIR (INSULIN DETEMIR) 1 UNITS/0.01ML SC SCH (22:09)
[2022-09-16] VITALS (12 sets, daily range): BP systolic 112–150; BP diastolic 57–67; O2SAT 90–97
[2022-09-16] MEDS: PIPERACILLIN/TAZOBACTAM SOD 3.375 GM in D5W MINI-BAG PLUS 50 ML IV SCH ×4 (01:27→20:48)
[2022-09-16] MEDS: IPRATROPIUM 0.5MG/ALBUTEROL 2.5MG INH SOL UD 3ML (DUONEB) NEB SCH ×5 (03:44→19:51)
[2022-09-16 05:34] LABS: BASO # 0.1 10^3/uL (0.0-0.2); BASO % 0.5 % (0.0-1.0); HEMATOCRIT 36.2 % (36.0-47.0); HEMOGLOBIN 11.7 g/dl (12.0-15.5); LYMPH # 0.7 10^3/uL (1.5-5.0); MEAN CORPUSCULAR HEMOGLOBIN 30.6 pg (27.0-33.0); MEAN CORPUSCULAR HGB CONC 32.3 g/dl (32.0-36.5); MEAN CORPUSCULAR VOLUME 94.8 fl (80.0-96.0); MONO # 0.7 10^3/uL (0.0-0.8); MONO % 6.2 % (2.0-8.0); NEUTROPHILS # 8.7 10^3/uL (1.5-8.5); NEUTROPHILS % 83.3 % (36.0-66.0); PLATELET COUNT, AUTOMATED 285 10^3/uL (150-450); RED BLOOD COUNT 3.82 10^6/uL (4.00-5.40); WHITE BLOOD COUNT 10.4 10^3/uL (4.0-10.0)
[2022-09-16 05:56] LABS: VANCOMYCIN RANDOM 20.1 UG/ML
[2022-09-16 05:58] LABS: CREATININE FOR GFR 2.33 MG/DL (0.55-1.30); GLOMERULAR FILTRATION RATE 21.7 (>39); POTASSIUM SERUM 3.8 MMOL/L (3.5-5.1)
[2022-09-16] MEDS: TIOTROPIUM INHALER/CAPSULE (SPIRIVA) INH SCH (08:36)
[2022-09-16] MEDS: SYMBICORT 160/4.5MCG INHALER 6GM INH SCH ×2 (08:37→19:51)
[2022-09-16] MEDS: PANTOPRAZOLE 40MG VIAL IV SCH (09:00)
[2022-09-16] MEDS: SENOKOT S TAB PO SCH ×2 (09:00→20:49)
[2022-09-16] MEDS: buPROPion **XL** TABLET 150MG (WELLBUTRIN XL) PO SCH (09:00)
[2022-09-16] MEDS: GABAPENTIN 100 MG CAP PO SCH ×2 (09:00→20:49)
[2022-09-16] MEDS: HEPARIN SOD (PORCINE) 5000UNITS/ML 1ML VIAL/SYRINGE SC SCH ×2 (09:00→20:48)
[2022-09-16] MEDS: MIRALAX *UNIT DOSE* 17GM PACKET PO SCH (09:01)
[2022-09-16] MEDS: INSULIN LISPRO (NovoLOG) PER UNIT SC SCH ×4 (09:01→20:50)
[2022-09-16] MEDS: POTASSIUM CHLORIDE 10MEQ SR TABLET PO SCH (10:44)
[2022-09-16] MEDS: VANCOMYCIN HCL 750 MG, VIAL MATE ADAPTER 1 EACH in D5W 250 ML IV SCH (13:23)
[2022-09-16] MEDS: rOPINIRole 1MG TAB PO SCH (20:49)
[2022-09-16] MEDS: LEVEMIR (INSULIN DETEMIR) 1 UNITS/0.01ML SC SCH (20:50)
[2022-09-16] MEDS: allopurinoL 100 MG TAB PO SCH (20:56)
[2022-09-17] VITALS (30 sets, daily range): BP systolic 130–168; BP diastolic 59–73; O2SAT 90–96
[2022-09-17] MEDS: IPRATROPIUM 0.5MG/ALBUTEROL 2.5MG INH SOL UD 3ML (DUONEB) NEB SCH ×6 (01:32→21:11)
[2022-09-17] MEDS: PIPERACILLIN/TAZOBACTAM SOD 3.375 GM in D5W MINI-BAG PLUS 50 ML IV SCH ×4 (02:36→20:34)
[2022-09-17 05:10] LABS: BASO % 0.3 % (0.0-1.0); HEMATOCRIT 37.9 % (36.0-47.0); HEMOGLOBIN 11.7 g/dl (12.0-15.5); LYMPH # 0.9 10^3/uL (1.5-5.0); LYMPH % 7.9 % (24.0-44.0); MEAN CORPUSCULAR HEMOGLOBIN 29.8 pg (27.0-33.0); MEAN CORPUSCULAR HGB CONC 30.9 g/dl (32.0-36.5); MEAN CORPUSCULAR VOLUME 96.7 fl (80.0-96.0); MONO % 8.6 % (2.0-8.0); NEUTROPHILS # 8.7 10^3/uL (1.5-8.5); NEUTROPHILS % 79.1 % (36.0-66.0); PLATELET COUNT, AUTOMATED 288 10^3/uL (150-450); RED BLOOD COUNT 3.92 10^6/uL (4.00-5.40)
[2022-09-17 06:05] LABS: CALCIUM LEVEL 10.1 MG/DL (8.3-10.6); CREATININE FOR GFR 1.97 MG/DL (0.55-1.30); GLOMERULAR FILTRATION RATE 26.3 (>39); POTASSIUM SERUM 4.3 MMOL/L (3.5-5.1)
[2022-09-17] MEDS: TIOTROPIUM INHALER/CAPSULE (SPIRIVA) INH SCH (08:10)
[2022-09-17] MEDS: SYMBICORT 160/4.5MCG INHALER 6GM INH SCH ×2 (08:10→21:11)
[2022-09-17] MEDS: INSULIN LISPRO (NovoLOG) PER UNIT SC SCH ×4 (08:20→20:39)
[2022-09-17] MEDS: HEPARIN SOD (PORCINE) 5000UNITS/ML 1ML VIAL/SYRINGE SC SCH ×2 (08:24→20:35)
[2022-09-17] MEDS: PANTOPRAZOLE 40MG VIAL IV SCH (08:24)
[2022-09-17] MEDS: buPROPion **XL** TABLET 150MG (WELLBUTRIN XL) PO SCH (08:25)
[2022-09-17] MEDS: GABAPENTIN 100 MG CAP PO SCH ×2 (08:25→20:36)
[2022-09-17] MEDS: MIRALAX *UNIT DOSE* 17GM PACKET PO SCH (08:25)
[2022-09-17] MEDS: SENOKOT S TAB PO SCH ×2 (08:25→20:36)
[2022-09-17] MEDS: POTASSIUM CHLORIDE 10MEQ SR TABLET PO SCH (09:00)
[2022-09-17 11:38] LABS: ALBUMIN 3.5 G/DL (3.2-5.2); BILIRUBIN,DIRECT 0.1 MG/DL (<0.4); BILIRUBIN,TOTAL 0.5 MG/DL (0.3-1.2); TOTAL PROTEIN 6.9 G/DL (5.7-8.2)
[2022-09-17] MEDS: VANCOMYCIN HCL 750 MG, VIAL MATE ADAPTER 1 EACH in D5W 250 ML IV SCH (12:36)
[2022-09-17] MEDS: allopurinoL 100 MG TAB PO SCH (20:36)
[2022-09-17] MEDS: LEVEMIR (INSULIN DETEMIR) 1 UNITS/0.01ML SC SCH (20:36)
[2022-09-17] MEDS: rOPINIRole 1MG TAB PO SCH (20:36)
[2022-09-18] VITALS (10 sets, daily range): BP systolic 131–155; BP diastolic 60–74; O2SAT 91–99
[2022-09-18] MEDS: IPRATROPIUM 0.5MG/ALBUTEROL 2.5MG INH SOL UD 3ML (DUONEB) NEB SCH ×6 (00:50→19:59)
[2022-09-18] MEDS: PIPERACILLIN/TAZOBACTAM SOD 3.375 GM in D5W MINI-BAG PLUS 50 ML IV SCH ×4 (01:48→20:18)
[2022-09-18 05:46] LABS: BASO % 0.2 % (0.0-1.0); EOS % 0.1 % (0.0-3.0); HEMATOCRIT 37.4 % (36.0-47.0); HEMOGLOBIN 11.3 g/dl (12.0-15.5); LYMPH # 1.3 10^3/uL (1.5-5.0); LYMPH % 14.1 % (24.0-44.0); MEAN CORPUSCULAR HEMOGLOBIN 29.7 pg (27.0-33.0); MEAN CORPUSCULAR HGB CONC 30.2 g/dl (32.0-36.5); MEAN CORPUSCULAR VOLUME 98.4 fl (80.0-96.0); MONO # 1.1 10^3/uL (0.0-0.8); MONO % 11.6 % (2.0-8.0); NEUTROPHILS # 6.6 10^3/uL (1.5-8.5); NEUTROPHILS % 70.7 % (36.0-66.0); PLATELET COUNT, AUTOMATED 253 10^3/uL (150-450); WHITE BLOOD COUNT 9.4 10^3/uL (4.0-10.0)
[2022-09-18 06:13] LABS: CALCIUM LEVEL 9.9 MG/DL (8.3-10.6); CREATININE FOR GFR 1.58 MG/DL (0.55-1.30); GLOMERULAR FILTRATION RATE 33.9 (>39); POTASSIUM SERUM 3.9 MMOL/L (3.5-5.1)
[2022-09-18] MEDS: TIOTROPIUM INHALER/CAPSULE (SPIRIVA) INH SCH (07:40)
[2022-09-18] MEDS: SYMBICORT 160/4.5MCG INHALER 6GM INH SCH ×2 (07:40→20:00)
[2022-09-18] MEDS: HEPARIN SOD (PORCINE) 5000UNITS/ML 1ML VIAL/SYRINGE SC SCH ×2 (08:36→20:20)
[2022-09-18] MEDS: INSULIN LISPRO (NovoLOG) PER UNIT SC SCH ×4 (08:36→20:20)
[2022-09-18] MEDS: MIRALAX *UNIT DOSE* 17GM PACKET PO SCH (08:36)
[2022-09-18] MEDS: SENOKOT S TAB PO SCH ×2 (08:37→20:21)
[2022-09-18] MEDS: GABAPENTIN 100 MG CAP PO SCH (08:37)
[2022-09-18] MEDS: buPROPion **XL** TABLET 150MG (WELLBUTRIN XL) PO SCH (08:37)
[2022-09-18] MEDS: PANTOPRAZOLE 40MG VIAL IV SCH (08:37)
[2022-09-18] MEDS: VANCOMYCIN HCL 1,000 MG, VIAL MATE ADAPTER 1 EACH in D5W 250 ML IV SCH (12:08)
[2022-09-18] MEDS: GABAPENTIN 300 MG CAP PO SCH ×2 (12:08→20:19)
[2022-09-18] MEDS: allopurinoL 100 MG TAB PO SCH (20:18)
[2022-09-18] MEDS: ATORVASTATIN 20 MG TAB PO SCH (20:19)
[2022-09-18] MEDS: rOPINIRole 1MG TAB PO SCH (20:19)
[2022-09-18] MEDS: LEVEMIR (INSULIN DETEMIR) 1 UNITS/0.01ML SC SCH (20:20)
[2022-09-18] MEDS ORDERED: GABAPENTIN 300 MG CAP PO SCH (21:00)
[2022-09-19] MEDS: IPRATROPIUM 0.5MG/ALBUTEROL 2.5MG INH SOL UD 3ML (DUONEB) NEB SCH ×6 (00:01→20:00)
[2022-09-19] MEDS: PIPERACILLIN/TAZOBACTAM SOD 3.375 GM in D5W MINI-BAG PLUS 50 ML IV SCH ×4 (01:56→20:22)
[2022-09-19 04:00] VITALS: BP 140/69
[2022-09-19 05:47] LABS: BASO # 0.1 10^3/uL (0.0-0.2); BASO % 0.6 % (0.0-1.0); EOS % 0.5 % (0.0-3.0); HEMATOCRIT 35.9 % (36.0-47.0); HEMOGLOBIN 11.2 g/dl (12.0-15.5); LYMPH # 1.6 10^3/uL (1.5-5.0); LYMPH % 18.2 % (24.0-44.0); MEAN CORPUSCULAR HEMOGLOBIN 30.3 pg (27.0-33.0); MEAN CORPUSCULAR HGB CONC 31.2 g/dl (32.0-36.5); MONO % 11.8 % (2.0-8.0); NEUTROPHILS # 5.6 10^3/uL (1.5-8.5); NEUTROPHILS % 64.9 % (36.0-66.0); PLATELET COUNT, AUTOMATED 242 10^3/uL (150-450); WHITE BLOOD COUNT 8.6 10^3/uL (4.0-10.0)
[2022-09-19 06:29] LABS: CALCIUM LEVEL 9.3 MG/DL (8.3-10.6); CREATININE FOR GFR 1.28 MG/DL (0.55-1.30); GLOMERULAR FILTRATION RATE 43.3 (>39); POTASSIUM SERUM 3.9 MMOL/L (3.5-5.1)
[2022-09-19] MEDS: INSULIN LISPRO (NovoLOG) PER UNIT SC SCH ×4 (07:06→20:24)
[2022-09-19] MEDS: TIOTROPIUM INHALER/CAPSULE (SPIRIVA) INH SCH (07:35)
[2022-09-19] MEDS: SYMBICORT 160/4.5MCG INHALER 6GM INH SCH ×2 (07:35→20:07)
[2022-09-19 07:44] VITALS: BP 140/63
[2022-09-19] MEDS: PANTOPRAZOLE 40MG VIAL IV SCH (08:34)
[2022-09-19] MEDS: predniSONE 10 MG TAB PO SCH (08:35)
[2022-09-19] MEDS: HEPARIN SOD (PORCINE) 5000UNITS/ML 1ML VIAL/SYRINGE SC SCH ×2 (08:35→20:24)
[2022-09-19] MEDS: MIRALAX *UNIT DOSE* 17GM PACKET PO SCH (08:35)
[2022-09-19] MEDS: SENOKOT S TAB PO SCH ×2 (08:35→20:24)
[2022-09-19] MEDS: GABAPENTIN 300 MG CAP PO SCH ×3 (08:36→20:23)
[2022-09-19] MEDS: buPROPion **XL** TABLET 150MG (WELLBUTRIN XL) PO SCH (08:36)
[2022-09-19] MEDS: TORSEMIDE (DEMADEX) 50 MG PER 1/2 TAB PO SCH (09:00)
[2022-09-19] MEDS: VANCOMYCIN HCL 1,000 MG, VIAL MATE ADAPTER 1 EACH in D5W 250 ML IV SCH (12:30)
[2022-09-19 16:00] VITALS: BP 129/60
[2022-09-19] MEDS: SPIRONOLACTONE 25 MG TAB PO SCH (18:00)
[2022-09-19 19:35] VITALS: BP 132/68
[2022-09-19] MEDS: ATORVASTATIN 20 MG TAB PO SCH (20:22)
[2022-09-19] MEDS: rOPINIRole 1MG TAB PO SCH (20:23)
[2022-09-19] MEDS: allopurinoL 100 MG TAB PO SCH (20:23)
[2022-09-19] MEDS: LEVEMIR (INSULIN DETEMIR) 1 UNITS/0.01ML SC SCH (20:25)
[2022-09-20] MEDS: IPRATROPIUM 0.5MG/ALBUTEROL 2.5MG INH SOL UD 3ML (DUONEB) NEB SCH ×3 (00:36→06:06)
[2022-09-20] MEDS: PIPERACILLIN/TAZOBACTAM SOD 3.375 GM in D5W MINI-BAG PLUS 50 ML IV SCH ×2 (01:52→08:33)
[2022-09-20 04:46] VITALS: BP 133/62
[2022-09-20 05:24] LABS: BASO % 0.3 % (0.0-1.0); EOS # 0.1 10^3/uL (0.0-0.5); HEMATOCRIT 38.3 % (36.0-47.0); HEMOGLOBIN 11.7 g/dl (12.0-15.5); LYMPH # 1.8 10^3/uL (1.5-5.0); LYMPH % 19.1 % (24.0-44.0); MEAN CORPUSCULAR HGB CONC 30.5 g/dl (32.0-36.5); MEAN CORPUSCULAR VOLUME 98.2 fl (80.0-96.0); MONO # 0.8 10^3/uL (0.0-0.8); NEUTROPHILS # 6.1 10^3/uL (1.5-8.5); NEUTROPHILS % 66.9 % (36.0-66.0); PLATELET COUNT, AUTOMATED 243 10^3/uL (150-450); WHITE BLOOD COUNT 9.1 10^3/uL (4.0-10.0)
[2022-09-20 05:52] LABS: CALCIUM LEVEL 9.2 MG/DL (8.3-10.6); CREATININE FOR GFR 1.4 MG/DL (0.55-1.30); POTASSIUM SERUM 4.3 MMOL/L (3.5-5.1)
[2022-09-20] MEDS: INSULIN LISPRO (NovoLOG) PER UNIT SC SCH (07:30)
[2022-09-20 08:00] VITALS: BP 146/67
[2022-09-20] MEDS: PANTOPRAZOLE 40MG VIAL IV SCH (08:33)
[2022-09-20] MEDS: buPROPion **XL** TABLET 150MG (WELLBUTRIN XL) PO SCH (08:34)
[2022-09-20] MEDS: predniSONE 10 MG TAB PO SCH (08:34)
[2022-09-20] MEDS: HEPARIN SOD (PORCINE) 5000UNITS/ML 1ML VIAL/SYRINGE SC SCH (08:34)
[2022-09-20] MEDS: SENOKOT S TAB PO SCH (08:34)
[2022-09-20] MEDS: SPIRONOLACTONE 25 MG TAB PO SCH (08:34)
[2022-09-20] MEDS: GABAPENTIN 300 MG CAP PO SCH (08:34)
[2022-09-20] MEDS: TORSEMIDE (DEMADEX) 50 MG PER 1/2 TAB PO SCH (08:35)
[2022-09-20] MEDS: MIRALAX *UNIT DOSE* 17GM PACKET PO SCH (08:36)
[2022-09-20] MEDS ORDERED: PRED10TA2 PO (10:20)
== END 2022-09-20 13:00 | disposition home or self-care (01) | DRG 177 ==
LOC: M ED 11:56 → M ED INP 16:40 → ENRESERV 19:05 → M MSPAV 22:00 → M PCU 09-15 15:23
PROVIDERS: ADMIT Internal Medicine Nephrology; ATTEND Internal Medicine Nephrology
PROC: B246ZZZ Ultrasonography of Right and Left Heart (ICD-10-PCS; principal; 2022-09-17)
DX: U07.1 COVID-19 (principal); J15.9 Unspecified bacterial pneumonia; J96.21 Acute and chronic respiratory failure with hypoxia; J96.22 Acute and chronic respiratory failure with hypercapnia; I50.32 Chronic diastolic (congestive) heart failure; I13.0 Hypertensive heart and chronic kidney disease with heart failure and stage 1 through stage 4 chronic kidney disease, or unspecified chronic kidney disease; E87.1 Hypo-osmolality and hyponatremia; N17.9 Acute kidney failure, unspecified; J44.1 Chronic obstructive pulmonary disease with (acute) exacerbation; Z68.41 Body mass index [BMI] 40.0-44.9, adult; E66.2 Morbid (severe) obesity with alveolar hypoventilation; N39.0 Urinary tract infection, site not specified; N18.30 Chronic kidney disease, stage 3 unspecified; E11.22 Type 2 diabetes mellitus with diabetic chronic kidney disease; I27.29 Other secondary pulmonary hypertension; H35.30 Unspecified macular degeneration; E87.6 Hypokalemia; R74.01 Elevation of levels of liver transaminase levels; E83.52 Hypercalcemia; E86.0 Dehydration; K44.9 Diaphragmatic hernia without obstruction or gangrene; K21.9 Gastro-esophageal reflux disease without esophagitis; H54.61 Unqualified visual loss, right eye, normal vision left eye; F32.A Depression, unspecified; F17.200 Nicotine dependence, unspecified, uncomplicated; M10.9 Gout, unspecified; E11.40 Type 2 diabetes mellitus with diabetic neuropathy, unspecified; B96.20 Unspecified Escherichia coli [E. coli] as the cause of diseases classified elsewhere; G25.81 Restless legs syndrome; M48.061 Spinal stenosis, lumbar region without neurogenic claudication; Z90.49 Acquired absence of other specified parts of digestive tract; Z85.3 Personal history of malignant neoplasm of breast; Z90.12 Acquired absence of left breast and nipple; Z79.899 Other long term (current) drug therapy; Z99.81 Dependence on supplemental oxygen

== ENCOUNTER → 2022-12-08 | Outpatient (CLI) | payer MEDICARE, MEDICAID ==
[~2022-12-08] MED LIST changes: +ALLO300T2 PO; +FIBE625T PO; +OMEP40CA5 PO; +PREDOPD OU; +TRAM50TA2 PO
== END ==
LOC: M RAD 16:54
PROVIDERS: ATTEND Internal Medicine Critical Care Medicine
DX: J44.9 Chronic obstructive pulmonary disease, unspecified (principal)

== ENCOUNTER 2023-01-24 21:54 | Emergency (ER) | payer MEDICARE, MEDICAID ==
[~2023-01-24] VITALS: Ht 167.6 cm; Wt 108.2 kg
[2023-01-24 22:30] LABS: BASO # 0.1 10^3/uL (0.0-0.2); BASO % 0.6 % (0.0-1.0); EOS # 0.2 10^3/uL (0.0-0.5); EOS % 1.4 % (0.0-3.0); HEMATOCRIT 43.2 % (36.0-47.0); HEMOGLOBIN 13.5 g/dl (12.0-15.5); LYMPH # 1.5 10^3/uL (1.5-5.0); LYMPH % 14.4 % (24.0-44.0); MEAN CORPUSCULAR HEMOGLOBIN 28.4 pg (27.0-33.0); MEAN CORPUSCULAR HGB CONC 31.3 g/dl (32.0-36.5); MEAN CORPUSCULAR VOLUME 90.8 fl (80.0-96.0); MONO % 9.2 % (2.0-8.0); NEUTROPHILS # 7.8 10^3/uL (1.5-8.5); NEUTROPHILS % 73.9 % (36.0-66.0); PLATELET COUNT, AUTOMATED 373 10^3/uL (150-450); RED BLOOD COUNT 4.76 10^6/uL (4.00-5.40); WHITE BLOOD COUNT 10.6 10^3/uL (4.0-10.0)
[2023-01-24 23:03] LABS: ALBUMIN 3.8 G/DL (3.2-5.2); BILIRUBIN,DIRECT 0.3 MG/DL (<0.4); BILIRUBIN,TOTAL 0.8 MG/DL (0.3-1.2); CALCIUM LEVEL 9.9 MG/DL (8.3-10.6); CREATININE FOR GFR 1.58 MG/DL (0.55-1.30); GLOMERULAR FILTRATION RATE 33.9 (>39); POTASSIUM SERUM 3.5 MMOL/L (3.5-5.1); TOTAL PROTEIN 7.4 G/DL (5.7-8.2)
[2023-01-24] MEDS ORDERED: MORPHINE 4 MG/ML 1ML VIAL IV ONE (23:10)
[2023-01-24] MEDS ORDERED: ONDANSETRON 4MG 2ML VIAL IV ONE (23:10)
[2023-01-24] MEDS ORDERED: ISOVUE-370 76% 100ML VIAL As Ordered ONE (23:22)
[2023-01-24] MEDS: GASTROGRAFIN SOLUTION 30ML PO SCH (23:59)
[2023-01-25] MEDS: GASTROGRAFIN SOLUTION 30ML PO SCH (00:15)
[2023-01-25] MEDS ORDERED: ONDANSETRON 4MG 2ML VIAL IV ONE (01:25)
[2023-01-25] MEDS ORDERED: ONDA4TAB6 PO (03:02)
[2023-01-25 03:13] VITALS: BP 128/58
== END 2023-01-25 03:19 | disposition home or self-care (01) ==
LOC: M ED 21:54
DX: R11.10 Vomiting, unspecified (principal); R10.9 Unspecified abdominal pain; I50.20 Unspecified systolic (congestive) heart failure; J44.9 Chronic obstructive pulmonary disease, unspecified; M51.37 Other intervertebral disc degeneration, lumbosacral region; F17.200 Nicotine dependence, unspecified, uncomplicated; Z79.899 Other long term (current) drug therapy
CPT/HCPCS: 74177; 80048; 80076; 83690; 85025; 93041; 96374; 96375; 96376; 99285; J2405; Q9963; Q9967

== ENCOUNTER 2023-02-04 19:27 | Inpatient (IN) | payer MEDICARE, MEDICAID ==
[~2023-02-04] VITALS: Ht 167.6 cm; Wt 110.2 kg
[~2023-02-04 19:27] MED LIST changes: +ONDA4TAB6 PO
[2023-02-04] MEDS ORDERED: ONDANSETRON 4MG 2ML VIAL IV ONE (19:45)
[2023-02-04] MEDS ORDERED: NS 1,000 ML IV ONE (19:45)
[2023-02-04 20:09] LABS: HEMATOCRIT 42.1 % (36.0-47.0); HEMOGLOBIN 12.9 g/dl (12.0-15.5); MEAN CORPUSCULAR HGB CONC 30.6 g/dl (32.0-36.5); MEAN CORPUSCULAR VOLUME 91.5 fl (80.0-96.0); PLATELET COUNT, AUTOMATED 290 10^3/uL (150-450); WHITE BLOOD COUNT 10.6 10^3/uL (4.0-10.0)
[2023-02-04] MEDS ORDERED: MORPHINE 2 MG/ML 1ML VIAL IV ONE (20:10)
[2023-02-04] MEDS ORDERED: METOCLOPRAMIDE INJ 10MG/2ML VIAL IV ONE (20:10)
[2023-02-04] MEDS ORDERED: ISOVUE-370 76% 100ML VIAL As Ordered ONE (20:12)
[2023-02-04 20:38] LABS: ALBUMIN 3.5 G/DL (3.2-5.2); BILIRUBIN,TOTAL 0.6 MG/DL (0.3-1.2); CALCIUM LEVEL 9.2 MG/DL (8.3-10.6); GLOMERULAR FILTRATION RATE 57.4 (>39); MAGNESIUM LEVEL 2.1 MG/DL (1.8-2.4); POTASSIUM SERUM 3.2 MMOL/L (3.5-5.1); TOTAL PROTEIN 6.9 G/DL (5.7-8.2)
[2023-02-04 20:46] LABS: RSV AMPLIFICATION NEGATIVE (NEGATIVE)
[2023-02-04] MEDS ORDERED: GABAPENTIN 300 MG CAP PO SCH (21:00)
[2023-02-04] MEDS ORDERED: rOPINIRole 1MG TAB PO SCH (21:00)
[2023-02-04] MEDS ORDERED: MORPHINE 4 MG/ML 1ML VIAL IV ONE (21:55)
[2023-02-04] MEDS ORDERED: PROMETHAZINE 25MG/ML 1ML VIAL IV ONE (22:00)
[2023-02-04] MEDS ORDERED: ACETAMINOPHEN TAB 650MG DOSE (2X325MG) PO PRN (23:30)
[2023-02-04] MEDS ORDERED: GLUCOSE 4GM CHEW TABLET PO PRN (23:30)
[2023-02-04] MEDS ORDERED: GLUCAGON INJ 1MG VIAL SC PRN (23:30)
[2023-02-04] MEDS ORDERED: MORPHINE 2 MG/ML 1ML VIAL IV PRN (23:30)
[2023-02-04] MEDS ORDERED: VENTAER INH (23:48)
[2023-02-04] MEDS ORDERED: BUPR-368 PO (23:49)
[2023-02-04] MEDS ORDERED: HOME MED LIST COMPLETE! XX SCH (23:50)
[2023-02-04] MEDS ORDERED: TRAZ-252 PO (23:51)
[2023-02-04] MEDS ORDERED: LIDO1ADH10 TOP (23:56)
[2023-02-04] MEDS ORDERED: AZEL1SPR3 NARES (23:56)
[2023-02-04] MEDS ORDERED: BENZ200C70 PO (23:56)
[2023-02-04] MEDS ORDERED: AZEL1SPR3 (23:56)
[2023-02-05] VITALS (27 sets, daily range): BP systolic 115–176; BP diastolic 58–86; O2SAT 83–96
[2023-02-05] MEDS ORDERED: HOME MED LIST COMPLETE! XX SCH
[2023-02-05] MEDS ORDERED: BENZONATATE 100MG CAPSULE PO PRN (00:05)
[2023-02-05] MEDS ORDERED: ALBUTEROL 90 MCG/ACT 8GM HFA INHALER INH PRN (00:05)
[2023-02-05] MEDS ORDERED: D5W/0.9% SODIUM CHLORIDE 1,000 ML IV SCH (01:05)
[2023-02-05 01:26] LABS: VENOUS BASE EXCESS 6.2 (-2.0-2.0); VENOUS HCO3 31.9 MEQ/L (23.0-27.0); VENOUS O2 SATURATION 99.4 % (60.0-80.0); VENOUS PARTIAL PRESSURE CO2 50.1 mmHg (38.0-50.0); VENOUS PARTIAL PRESSURE O2 216.5 mmHg (30.0-50.0); VENOUS PH 7.422 UNITS (7.330-7.430); VENOUS STANDARD HCO3 30.2 MEQ/L; VENOUS TOTAL CO2 33.5 MEQ/L (24.0-28.0)
[2023-02-05] MEDS: KCL 10MEQ/100ML SWI (KRUN) 10 MEQ in IV 1 EA IV SCH ×4 (01:27→05:12)
[2023-02-05] MEDS: METOCLOPRAMIDE INJ 10MG/2ML VIAL IV SCH ×2 (01:27→09:56)
[2023-02-05] MEDS: INSULIN LISPRO (NovoLOG) PER UNIT SC SCH ×4 (05:05→18:00)
[2023-02-05 06:27] LABS: HEMATOCRIT 41.2 % (36.0-47.0); HEMOGLOBIN 12.2 g/dl (12.0-15.5); MEAN CORPUSCULAR HEMOGLOBIN 28.3 pg (27.0-33.0); MEAN CORPUSCULAR HGB CONC 29.6 g/dl (32.0-36.5); MEAN CORPUSCULAR VOLUME 95.6 fl (80.0-96.0); PLATELET COUNT, AUTOMATED 259 10^3/uL (150-450); RED BLOOD COUNT 4.31 10^6/uL (4.00-5.40); WHITE BLOOD COUNT 8.2 10^3/uL (4.0-10.0)
[2023-02-05 06:53] LABS: ALBUMIN 3.2 G/DL (3.2-5.2); BILIRUBIN,DIRECT 0.2 MG/DL (<0.4); BILIRUBIN,TOTAL 0.5 MG/DL (0.3-1.2); CREATININE FOR GFR 1.04 MG/DL (0.55-1.30); GLOMERULAR FILTRATION RATE 54.8 (>39); POTASSIUM SERUM 3.7 MMOL/L (3.5-5.1); TOTAL PROTEIN 6.5 G/DL (5.7-8.2)
[2023-02-05] MEDS: DEXTROSE 50% 50ML SYRINGE IV PRN ×3 (08:32→19:13)
[2023-02-05 08:51] LABS: ABG BASE EXCESS 6.9 (-2.0-2.0); ABG HCO3 33.7 MEQ/L (22.0-26.0); ABG O2 SATURATION 89.9 % (95.0-99.0); ABG PARTIAL PRESSURE CO2 58.9 mmHg (35.0-45.0); ABG PARTIAL PRESSURE O2 61.2 mmHg (75.0-100.0); ABG STANDARD HCO3 30.6 MEQ/L (22.0-26.0); ABG TOTAL CO2 35.6 MEQ/L (23.0-31.0); ABG pH (ARTERIAL) 7.376 UNITS (7.350-7.450)
[2023-02-05] MEDS: AZELASTINE 137MCG NASAL SPY 30 ML (ASTELIN) SCH (09:00)
[2023-02-05] MEDS ORDERED: guaiFENesin ER 600 MG TAB PO SCH (09:00)
[2023-02-05] MEDS ORDERED: FLUoxetine 20MG CAP PO SCH (09:00)
[2023-02-05] MEDS ORDERED: NS 1,000 ML IV ONE (09:00)
[2023-02-05] MEDS ORDERED: GABAPENTIN 300 MG CAP PO SCH (09:00)
[2023-02-05] MEDS ORDERED: D5W 1,000 ML IV SCH ×2 (09:15→14:45)
[2023-02-05 09:23] LABS: HEMATOCRIT 37.7 % (36.0-47.0); HEMOGLOBIN 10.9 g/dl (12.0-15.5); MEAN CORPUSCULAR HEMOGLOBIN 27.8 pg (27.0-33.0); MEAN CORPUSCULAR HGB CONC 28.9 g/dl (32.0-36.5); MEAN CORPUSCULAR VOLUME 96.2 fl (80.0-96.0); PLATELET COUNT, AUTOMATED 239 10^3/uL (150-450); RED BLOOD COUNT 3.92 10^6/uL (4.00-5.40); WHITE BLOOD COUNT 6.9 10^3/uL (4.0-10.0)
[2023-02-05 09:36] LABS: INR 0.96
[2023-02-05 09:37] LABS: PARTIAL THROMBOPLASTIN TIME 24.7 SECONDS (24.8-34.2)
[2023-02-05 09:53] LABS: ALBUMIN 2.8 G/DL (3.2-5.2); BILIRUBIN,TOTAL 0.4 MG/DL (0.3-1.2); CALCIUM LEVEL 8.5 MG/DL (8.3-10.6); CHOLESTEROL RISK RATIO 3.28 (<5); CREATININE FOR GFR 1.06 MG/DL (0.55-1.30); GLOMERULAR FILTRATION RATE 53.7 (>39); HDL CHOLESTEROL 47.8 MG/DL (>40); LDL CHOLESTEROL 91.6 MG/DL (<100); NON-HDL-C 109.2 MG/DL; POTASSIUM SERUM 3.5 MMOL/L (3.5-5.1); TOTAL PROTEIN 5.9 G/DL (5.7-8.2)
[2023-02-05] MEDS: PANTOPRAZOLE 40MG VIAL IV SCH (09:55)
[2023-02-05] MEDS: ENOXAPARIN 40MG/0.4ML SYRINGE (J1650 PER 10MG) SC SCH (09:56)
[2023-02-05 10:20] LABS: ERYTHROCYTE SEDIMENTATION RATE 84 mm/hr (0-30)
[2023-02-05 10:22] LABS: C REACTIVE PROTEIN QUANTITATIV 1.3 MG/DL (<1.0)
[2023-02-05 10:26] LABS: PROLACTIN 8.28 NG/ML
[2023-02-05] MEDS ORDERED: ASPIRIN 300 MG SUPP PR SCH (11:00)
[2023-02-05] MEDS ORDERED: DEXTROSE 50% 50ML SYRINGE IV STA (12:18)
[2023-02-05] MEDS ORDERED: D5W 1,000 ML IV ONE (14:45)
[2023-02-05 18:03] LABS: ABG BASE EXCESS 2.9 (-2.0-2.0); ABG HCO3 28.1 MEQ/L (22.0-26.0); ABG O2 SATURATION 92.9 % (95.0-99.0); ABG PARTIAL PRESSURE CO2 45.8 mmHg (35.0-45.0); ABG PARTIAL PRESSURE O2 65.4 mmHg (75.0-100.0); ABG STANDARD HCO3 26.9 MEQ/L (22.0-26.0); ABG TOTAL CO2 29.5 MEQ/L (23.0-31.0); ABG pH (ARTERIAL) 7.406 UNITS (7.350-7.450)
[2023-02-05 18:35] LABS: CALCIUM LEVEL 8.1 MG/DL (8.3-10.6); CREATININE FOR GFR 1.1 MG/DL (0.55-1.30); GLOMERULAR FILTRATION RATE 51.4 (>39); POTASSIUM SERUM 3.3 MMOL/L (3.5-5.1)
[2023-02-05] MEDS: cefTRIAXone SOD 1 GM in D5W MINI-BAG PLUS 50 ML IV SCH (18:41)
[2023-02-05] MEDS: ONDANSETRON 4MG 2ML VIAL IV PRN (19:53)
[2023-02-05] MEDS: SCOPOLAMINE 1MG TRANSDERMAL PATCH TOP SCH (21:00)
[2023-02-05] MEDS ORDERED: KETOROLAC 30 MG/ML 1ML VIAL IV ONE (21:00)
[2023-02-05] MEDS ORDERED: MORPHINE 2 MG/ML 1ML VIAL IV ONE (22:00)
[2023-02-05] MEDS ORDERED: METOCLOPRAMIDE INJ 10MG/2ML VIAL IV ONE (23:00)
[2023-02-06] MEDS ORDERED: ACETAMINOPHEN 500 MG TAB PO SCH
[2023-02-06] MEDS ORDERED: METOCLOPRAMIDE INJ 10MG/2ML VIAL IV ONE (01:00)
[2023-02-06] MEDS ORDERED: MORPHINE 2 MG/ML 1ML VIAL IV ONE ×2 (01:00→05:00)
[2023-02-06] MEDS ORDERED: ISOVUE-370 76% 100ML VIAL As Ordered ONE (01:01)
[2023-02-06] MEDS: GASTROGRAFIN SOLUTION 30ML PO SCH ×2 (01:36→02:15)
[2023-02-06 03:38] VITALS: BP 159/70
[2023-02-06] MEDS: INSULIN LISPRO (NovoLOG) PER UNIT SC SCH ×4 (05:20→18:00)
[2023-02-06 06:01] LABS: BASO % 0.4 % (0.0-1.0); EOS # 0.1 10^3/uL (0.0-0.5); EOS % 1.6 % (0.0-3.0); HEMATOCRIT 40.6 % (36.0-47.0); LYMPH # 0.9 10^3/uL (1.5-5.0); LYMPH % 12.7 % (24.0-44.0); MEAN CORPUSCULAR HGB CONC 29.6 g/dl (32.0-36.5); MEAN CORPUSCULAR VOLUME 94.9 fl (80.0-96.0); MONO # 0.6 10^3/uL (0.0-0.8); MONO % 8.6 % (2.0-8.0); NEUTROPHILS # 5.3 10^3/uL (1.5-8.5); NEUTROPHILS % 75.7 % (36.0-66.0); PLATELET COUNT, AUTOMATED 227 10^3/uL (150-450); RED BLOOD COUNT 4.28 10^6/uL (4.00-5.40); WHITE BLOOD COUNT 6.9 10^3/uL (4.0-10.0)
[2023-02-06 06:29] LABS: CALCIUM LEVEL 8.2 MG/DL (8.3-10.6); CHOLESTEROL RISK RATIO 3.37 (<5); CREATININE FOR GFR 0.98 MG/DL (0.55-1.30); GLOMERULAR FILTRATION RATE 58.7 (>39); HDL CHOLESTEROL 48.3 MG/DL (>40); LDL CHOLESTEROL 93.1 MG/DL (<100); MAGNESIUM LEVEL 1.7 MG/DL (1.8-2.4); NON-HDL-C 114.7 MG/DL; POTASSIUM SERUM 3.7 MMOL/L (3.5-5.1)
[2023-02-06] MEDS ORDERED: KETOROLAC 30 MG/ML 1ML VIAL IV ONE ×2 (07:30→12:15)
[2023-02-06] MEDS ORDERED: ACETAMINOPHEN 500 MG TAB PO ONE (07:30)
[2023-02-06 08:02] VITALS: BP 148/62
[2023-02-06 08:40] LABS: ALBUMIN 2.8 G/DL (3.2-5.2); BILIRUBIN,TOTAL 0.5 MG/DL (0.3-1.2); CALCIUM LEVEL 8.2 MG/DL (8.3-10.6); CREATININE FOR GFR 0.99 MG/DL (0.55-1.30); GLOMERULAR FILTRATION RATE 58.1 (>39); POTASSIUM SERUM 3.8 MMOL/L (3.5-5.1)
[2023-02-06] MEDS: PANTOPRAZOLE 40MG VIAL IV SCH (08:47)
[2023-02-06] MEDS: ENOXAPARIN 40MG/0.4ML SYRINGE (J1650 PER 10MG) SC SCH (08:48)
[2023-02-06] MEDS: AZELASTINE 137MCG NASAL SPY 30 ML (ASTELIN) SCH (08:49)
[2023-02-06] MEDS: ASPIRIN 81MG ENTERIC TABLET PO SCH (09:43)
[2023-02-06] MEDS: LIDOCAINE 5% OINT 30GM TUBE TOP SCH ×4 (09:44→21:06)
[2023-02-06] MEDS: ONDANSETRON 4MG 2ML VIAL IV PRN ×2 (12:10→18:16)
[2023-02-06] MEDS ORDERED: SUCRALFATE SUSP 1GM/10ML UD PO ONE (12:15)
[2023-02-06] MEDS ORDERED: DICYCLOMINE INJ 20MG/2ML IM ONE (12:15)
[2023-02-06] MEDS ORDERED: GI COCKTAIL 50ML BTL(HYOSCYAMINE/MAALOX/LIDOCAINE VISCOUS)(1:3:1) PO ONE (12:15)
[2023-02-06 12:41] LABS: CALCIUM LEVEL 8.5 MG/DL (8.3-10.6); CREATININE FOR GFR 0.98 MG/DL (0.55-1.30); GLOMERULAR FILTRATION RATE 58.7 (>39); POTASSIUM SERUM 3.7 MMOL/L (3.5-5.1)
[2023-02-06] MEDS ORDERED: MAG SULF 1GM/100ML (MAG RUN) 1 GM in IV 1 EA IV ONE (13:00)
[2023-02-06 13:27] VITALS: BP 173/91
[2023-02-06 14:04] VITALS: BP 145/68
[2023-02-06] MEDS ORDERED: NALOXONE INJ 0.4MG/1ML VIAL IV PRN (15:55)
[2023-02-06] MEDS: PHENAZOPYRIDINE 100 MG TAB PO SCH ×2 (16:15→21:08)
[2023-02-06] MEDS: D5W 1,000 ML IV SCH (16:15)
[2023-02-06] MEDS: KETOROLAC 30 MG/ML 1ML VIAL IV SCH (18:16)
[2023-02-06] MEDS: GI COCKTAIL 50ML BTL(HYOSCYAMINE/MAALOX/LIDOCAINE VISCOUS)(1:3:1) PO SCH (18:16)
[2023-02-06] MEDS: SUCRALFATE SUSP 1GM/10ML UD PO SCH ×2 (18:16→21:07)
[2023-02-06] MEDS: cefTRIAXone SOD 1 GM in D5W MINI-BAG PLUS 50 ML IV SCH (18:17)
[2023-02-06 18:33] LABS: CALCIUM LEVEL 8.2 MG/DL (8.3-10.6); CREATININE FOR GFR 0.99 MG/DL (0.55-1.30); GLOMERULAR FILTRATION RATE 58.1 (>39); POTASSIUM SERUM 3.6 MMOL/L (3.5-5.1)
[2023-02-06] MEDS: PANTOPRAZOLE 40MG TAB (PROTONIX) PO SCH (21:07)
[2023-02-06] MEDS: ACETAMINOPHEN 500 MG TAB PO SCH (21:08)
[2023-02-06 22:35] VITALS: BP 142/79
[2023-02-07] MEDS ORDERED: rOPINIRole 1MG TAB PO ONE
[2023-02-07] MEDS: KETOROLAC 30 MG/ML 1ML VIAL IV SCH ×4 (00:09→17:28)
[2023-02-07] MEDS: GI COCKTAIL 50ML BTL(HYOSCYAMINE/MAALOX/LIDOCAINE VISCOUS)(1:3:1) PO SCH ×4 (00:09→17:26)
[2023-02-07] MEDS: INSULIN LISPRO (NovoLOG) PER UNIT SC SCH ×4 (05:10→17:55)
[2023-02-07 05:27] VITALS: BP 141/75
[2023-02-07 06:50] LABS: BASO % 0.7 % (0.0-1.0); EOS # 0.2 10^3/uL (0.0-0.5); EOS % 2.9 % (0.0-3.0); HEMOGLOBIN 10.9 g/dl (12.0-15.5); LYMPH # 1.4 10^3/uL (1.5-5.0); MEAN CORPUSCULAR HEMOGLOBIN 28.8 pg (27.0-33.0); MEAN CORPUSCULAR HGB CONC 31.1 g/dl (32.0-36.5); MEAN CORPUSCULAR VOLUME 92.6 fl (80.0-96.0); MONO # 0.7 10^3/uL (0.0-0.8); MONO % 11.6 % (2.0-8.0); NEUTROPHILS # 3.8 10^3/uL (1.5-8.5); PLATELET COUNT, AUTOMATED 218 10^3/uL (150-450); RED BLOOD COUNT 3.78 10^6/uL (4.00-5.40); WHITE BLOOD COUNT 6.1 10^3/uL (4.0-10.0)
[2023-02-07 07:17] LABS: BLOOD UREA NITROGEN 16 MG/DL (9-23); CALCIUM LEVEL 8.2 MG/DL (8.3-10.6); CARBON DIOXIDE LEVEL 32 MMOL/L (20-31); CHLORIDE LEVEL 102 MMOL/L (98-107); CREATININE FOR GFR 1.17 MG/DL (0.55-1.30); GLOMERULAR FILTRATION RATE 47.9 (>39); GLUCOSE, FASTING 86 MG/DL (74-106); MAGNESIUM LEVEL 1.9 MG/DL (1.8-2.4); POTASSIUM SERUM 3.2 MMOL/L (3.5-5.1); SODIUM LEVEL 140 MMOL/L (136-145)
[2023-02-07] MEDS: ENOXAPARIN 40MG/0.4ML SYRINGE (J1650 PER 10MG) SC SCH ×2 (07:34→10:32)
[2023-02-07] MEDS: SUCRALFATE SUSP 1GM/10ML UD PO SCH ×4 (09:00→21:24)
[2023-02-07] MEDS ORDERED: SENOKOT S TAB PO SCH (09:00)
[2023-02-07] MEDS ORDERED: MOM 30ML SUSPENSION UDC PO PRN ×2 (10:10→16:45)
[2023-02-07] MEDS: ASPIRIN 81MG ENTERIC TABLET PO SCH (10:32)
[2023-02-07] MEDS: ONDANSETRON 4MG 2ML VIAL IV PRN (10:32)
[2023-02-07] MEDS: PHENAZOPYRIDINE 100 MG TAB PO SCH ×3 (10:33→21:25)
[2023-02-07] MEDS: oxyCODONE 5MG TAB PO PRN ×2 (10:33→17:28)
[2023-02-07] MEDS: PANTOPRAZOLE 40MG TAB (PROTONIX) PO SCH (10:33)
[2023-02-07] MEDS: ACETAMINOPHEN 500 MG TAB PO SCH ×4 (10:33→21:26)
[2023-02-07] MEDS: LIDOCAINE 5% OINT 30GM TUBE TOP SCH ×4 (10:34→21:26)
[2023-02-07] MEDS: AZELASTINE 137MCG NASAL SPY 30 ML (ASTELIN) SCH (10:34)
[2023-02-07 14:00] VITALS: BP 159/73
[2023-02-07] MEDS ORDERED: METOCLOPRAMIDE INJ 10MG/2ML VIAL IV ONE (14:00)
[2023-02-07] MEDS ORDERED: POTASSIUM CHLORIDE 10MEQ SR TABLET PO ONE (14:00)
[2023-02-07] MEDS: D5W 1,000 ML IV SCH (14:58)
[2023-02-07] MEDS ORDERED: MIRALAX *UNIT DOSE* 17GM PACKET PO ONE (17:00)
[2023-02-07 17:01] LABS: HEPATITIS B SURFACE ANTIGEN NEGATIVE (NEGATIVE)
[2023-02-07 17:21] LABS: HEPATITIS B CORE ANTIBODY IGM NEGATIVE (NEGATIVE); HEPATITIS C VIRUS ABY INDEX < 0.0 INDEX (<0.8)
[2023-02-07] MEDS: LACTULOSE 20GM/30ML SYRUP UDC PO SCH ×2 (17:27→18:42)
[2023-02-07] MEDS: PROMETHAZINE 25MG/ML 1ML VIAL IV SCH ×2 (17:27→21:26)
[2023-02-07] MEDS: SENOKOT S TAB PO SCH (17:27)
[2023-02-07] MEDS: cefTRIAXone SOD 1 GM in D5W MINI-BAG PLUS 50 ML IV SCH (18:42)
[2023-02-07 20:02] VITALS: BP 97/57
[2023-02-08] MEDS: GI COCKTAIL 50ML BTL(HYOSCYAMINE/MAALOX/LIDOCAINE VISCOUS)(1:3:1) PO SCH ×4 (00:18→17:30)
[2023-02-08] MEDS: KETOROLAC 30 MG/ML 1ML VIAL IV SCH ×2 (00:19→05:38)
[2023-02-08] MEDS: D5W 1,000 ML IV SCH (00:20)
[2023-02-08] MEDS: PROMETHAZINE 25MG/ML 1ML VIAL IV SCH ×4 (03:12→21:56)
[2023-02-08 05:08] VITALS: BP 116/64
[2023-02-08] MEDS: INSULIN LISPRO (NovoLOG) PER UNIT SC SCH ×5 (05:54→21:00)
[2023-02-08 06:23] LABS: BASO % 0.3 % (0.0-1.0); HEMATOCRIT 37.5 % (36.0-47.0); HEMOGLOBIN 11.4 g/dl (12.0-15.5); LYMPH # 0.9 10^3/uL (1.5-5.0); LYMPH % 12.1 % (24.0-44.0); MEAN CORPUSCULAR HEMOGLOBIN 27.8 pg (27.0-33.0); MEAN CORPUSCULAR HGB CONC 30.4 g/dl (32.0-36.5); MEAN CORPUSCULAR VOLUME 91.5 fl (80.0-96.0); MONO # 0.2 10^3/uL (0.0-0.8); NEUTROPHILS # 6.1 10^3/uL (1.5-8.5); NEUTROPHILS % 83.8 % (36.0-66.0); PLATELET COUNT, AUTOMATED 227 10^3/uL (150-450); WHITE BLOOD COUNT 7.3 10^3/uL (4.0-10.0)
[2023-02-08 06:50] LABS: CALCIUM LEVEL 8.5 MG/DL (8.3-10.6); CREATININE FOR GFR 1.42 MG/DL (0.55-1.30); GLOMERULAR FILTRATION RATE 38.3 (>39); MAGNESIUM LEVEL 2.1 MG/DL (1.8-2.4); POTASSIUM SERUM 4.4 MMOL/L (3.5-5.1)
[2023-02-08 07:21] VITALS: BP 124/72
[2023-02-08] MEDS ORDERED: NS 1,000 ML IV SCH (07:25)
[2023-02-08] MEDS: SUCRALFATE SUSP 1GM/10ML UD PO SCH ×4 (07:30→21:57)
[2023-02-08] MEDS: ACETAMINOPHEN 500 MG TAB PO SCH ×3 (07:31→22:08)
[2023-02-08] MEDS: NS 1,000 ML IV ONE ×2 (07:57→09:23)
[2023-02-08] MEDS: SENOKOT S TAB PO SCH ×2 (09:00→21:56)
[2023-02-08] MEDS: GABAPENTIN 100 MG CAP PO SCH ×3 (09:00→21:56)
[2023-02-08] MEDS: LIDOCAINE 5% OINT 30GM TUBE TOP SCH ×4 (09:00→21:58)
[2023-02-08] MEDS ORDERED: E-Z-GAS II EFFERVESCENT PACKET (SODIUM BICARB./CITRIC ACID/SIMETHICONE) As Ordered ONE (10:35)
[2023-02-08] MEDS ORDERED: E-Z-PAQUE 96% w/w SUSP 176GM BTL As Ordered ONE ×2 (10:35→10:47)
[2023-02-08] MEDS ORDERED: E-Z-HD 98% w/w 340GM SUSP BTL As Ordered ONE (10:36)
[2023-02-08] MEDS: ENOXAPARIN 40MG/0.4ML SYRINGE (J1650 PER 10MG) SC SCH (13:56)
[2023-02-08] MEDS: CEFDINIR 300 MG CAP (OMNICEF) PO SCH ×2 (13:56→21:56)
[2023-02-08] MEDS: AZELASTINE 137MCG NASAL SPY 30 ML (ASTELIN) SCH (13:58)
[2023-02-08 14:00] VITALS: BP 121/55
[2023-02-08 14:47] LABS: CALCIUM LEVEL 8.4 MG/DL (8.3-10.6); CREATININE FOR GFR 1.33 MG/DL (0.55-1.30); GLOMERULAR FILTRATION RATE 41.3 (>39); POTASSIUM SERUM 3.6 MMOL/L (3.5-5.1)
[2023-02-08] MEDS: NS 1,000 ML IV SCH (17:31)
[2023-02-08 19:10] LABS: CALCIUM LEVEL 8.2 MG/DL (8.3-10.6); CREATININE FOR GFR 1.35 MG/DL (0.55-1.30); GLOMERULAR FILTRATION RATE 40.6 (>39); POTASSIUM SERUM 3.6 MMOL/L (3.5-5.1)
[2023-02-08 21:45] VITALS: BP 117/58
[2023-02-08] MEDS: SCOPOLAMINE 1MG TRANSDERMAL PATCH TOP SCH (21:57)
[2023-02-09] MEDS: GI COCKTAIL 50ML BTL(HYOSCYAMINE/MAALOX/LIDOCAINE VISCOUS)(1:3:1) PO SCH ×2 (00:49→04:50)
[2023-02-09] MEDS: ACETAMINOPHEN 500 MG TAB PO SCH ×5 (00:57→22:18)
[2023-02-09] MEDS: PROMETHAZINE 25MG/ML 1ML VIAL IV SCH ×4 (04:50→22:07)
[2023-02-09 04:53] VITALS: BP 117/67
[2023-02-09 06:22] LABS: BASO % 0.6 % (0.0-1.0); EOS # 0.1 10^3/uL (0.0-0.5); EOS % 1.1 % (0.0-3.0); HEMATOCRIT 35.5 % (36.0-47.0); HEMOGLOBIN 10.9 g/dl (12.0-15.5); LYMPH # 1.8 10^3/uL (1.5-5.0); LYMPH % 25.6 % (24.0-44.0); MEAN CORPUSCULAR HEMOGLOBIN 28.3 pg (27.0-33.0); MEAN CORPUSCULAR HGB CONC 30.7 g/dl (32.0-36.5); MEAN CORPUSCULAR VOLUME 92.2 fl (80.0-96.0); MONO # 0.7 10^3/uL (0.0-0.8); MONO % 9.1 % (2.0-8.0); NEUTROPHILS # 4.5 10^3/uL (1.5-8.5); PLATELET COUNT, AUTOMATED 202 10^3/uL (150-450); RED BLOOD COUNT 3.85 10^6/uL (4.00-5.40); WHITE BLOOD COUNT 7.2 10^3/uL (4.0-10.0)
[2023-02-09 06:44] LABS: CALCIUM LEVEL 8.5 MG/DL (8.3-10.6); CREATININE FOR GFR 1.29 MG/DL (0.55-1.30); GLOMERULAR FILTRATION RATE 42.8 (>39); MAGNESIUM LEVEL 2.2 MG/DL (1.8-2.4); POTASSIUM SERUM 3.7 MMOL/L (3.5-5.1)
[2023-02-09] MEDS: SUCRALFATE SUSP 1GM/10ML UD PO SCH ×4 (07:30→21:48)
[2023-02-09] MEDS: INSULIN LISPRO (NovoLOG) PER UNIT SC SCH ×4 (07:30→21:00)
[2023-02-09] MEDS ORDERED: GI COCKTAIL 50ML BTL(HYOSCYAMINE/MAALOX/LIDOCAINE VISCOUS)(1:3:1) PO PRN (08:30)
[2023-02-09] MEDS: SENOKOT S TAB PO SCH ×2 (09:00→21:00)
[2023-02-09] MEDS: GABAPENTIN 100 MG CAP PO SCH ×3 (09:00→21:49)
[2023-02-09] MEDS: ENOXAPARIN 40MG/0.4ML SYRINGE (J1650 PER 10MG) SC SCH (09:00)
[2023-02-09] MEDS: CEFDINIR 300 MG CAP (OMNICEF) PO SCH ×2 (09:00→21:49)
[2023-02-09] MEDS: LIDOCAINE 5% OINT 30GM TUBE TOP SCH ×4 (09:16→21:49)
[2023-02-09] MEDS: AZELASTINE 137MCG NASAL SPY 30 ML (ASTELIN) SCH (09:16)
[2023-02-09] MEDS: NS 1,000 ML IV SCH (10:24)
[2023-02-09] MEDS ORDERED: DEXTROSE 50% 50ML SYRINGE IV STA (12:21)
[2023-02-09] MEDS: D5W 1,000 ML IV SCH (12:31)
[2023-02-09 14:00] VITALS: BP 123/56
[2023-02-09] MEDS ORDERED: LIDOCAINE 2% 100MG/5ML SDV (FOR ANES.) As Ordered ONE (19:25)
[2023-02-09] MEDS ORDERED: propofoL 200 MG/20 ML VIAL As Ordered ONE (19:25)
[2023-02-09] MEDS ORDERED: ESMOLOL INJ 100MG/10ML VIAL As Ordered ONE (19:52)
[2023-02-09 20:41] VITALS: BP 132/58
[2023-02-10] MEDS: ACETAMINOPHEN 500 MG TAB PO SCH ×2 (01:31→07:53)
[2023-02-10] MEDS: PROMETHAZINE 25MG/ML 1ML VIAL IV SCH ×2 (04:00→10:00)
[2023-02-10] MEDS: D5W 1,000 ML IV SCH (04:39)
[2023-02-10 05:23] VITALS: BP 135/58
[2023-02-10 06:28] LABS: BASO % 0.4 % (0.0-1.0); EOS # 0.1 10^3/uL (0.0-0.5); EOS % 1.5 % (0.0-3.0); HEMATOCRIT 36.6 % (36.0-47.0); HEMOGLOBIN 11.1 g/dl (12.0-15.5); LYMPH # 1.4 10^3/uL (1.5-5.0); LYMPH % 19.5 % (24.0-44.0); MEAN CORPUSCULAR HEMOGLOBIN 28.2 pg (27.0-33.0); MEAN CORPUSCULAR HGB CONC 30.3 g/dl (32.0-36.5); MEAN CORPUSCULAR VOLUME 92.9 fl (80.0-96.0); MONO # 0.7 10^3/uL (0.0-0.8); MONO % 10.4 % (2.0-8.0); NEUTROPHILS # 4.8 10^3/uL (1.5-8.5); NEUTROPHILS % 67.4 % (36.0-66.0); PLATELET COUNT, AUTOMATED 218 10^3/uL (150-450); RED BLOOD COUNT 3.94 10^6/uL (4.00-5.40); WHITE BLOOD COUNT 7.1 10^3/uL (4.0-10.0)
[2023-02-10 06:47] LABS: CALCIUM LEVEL 8.6 MG/DL (8.3-10.6); CREATININE FOR GFR 1.24 MG/DL (0.55-1.30); GLOMERULAR FILTRATION RATE 44.8 (>39); MAGNESIUM LEVEL 1.9 MG/DL (1.8-2.4); POTASSIUM SERUM 3.7 MMOL/L (3.5-5.1)
[2023-02-10] MEDS ORDERED: TRAN1DIS4 TOP ×2 (07:25→12:11)
[2023-02-10] MEDS ORDERED: BACI1CAP PO (07:25)
[2023-02-10] MEDS ORDERED: PROT1TAB2 PO (07:25)
[2023-02-10] MEDS ORDERED: CEFD300CAP PO (07:25)
[2023-02-10] MEDS ORDERED: SUCR1TA PO (07:25)
[2023-02-10] MEDS: INSULIN LISPRO (NovoLOG) PER UNIT SC SCH (07:30)
[2023-02-10] MEDS: SUCRALFATE SUSP 1GM/10ML UD PO SCH (07:53)
[2023-02-10 08:00] VITALS: BP 116/73
[2023-02-10] MEDS: CEFDINIR 300 MG CAP (OMNICEF) PO SCH (08:22)
[2023-02-10] MEDS: GABAPENTIN 100 MG CAP PO SCH (08:22)
[2023-02-10] MEDS: ENOXAPARIN 40MG/0.4ML SYRINGE (J1650 PER 10MG) SC SCH (08:23)
[2023-02-10] MEDS: LIDOCAINE 5% OINT 30GM TUBE TOP SCH (09:00)
[2023-02-10] MEDS: SENOKOT S TAB PO SCH (09:00)
[2023-02-10] MEDS: AZELASTINE 137MCG NASAL SPY 30 ML (ASTELIN) SCH (09:00)
== END 2023-02-10 10:30 | disposition home or self-care (01) | DRG 391 ==
LOC: M ED 19:27 → M ED INP 23:27 → ENRESERV 02-05 00:14 → M PCU 02-05 01:02 → M MS5PR 02-06 13:17
PROVIDERS: ADMIT Family Medicine; ATTEND General Practice
PROC: 0DB78ZX Excision of Stomach, Pylorus, Via Natural or Artificial Opening Endoscopic, Diagnostic (ICD-10-PCS; 2023-02-09)
PROC: 0DB98ZX Excision of Duodenum, Via Natural or Artificial Opening Endoscopic, Diagnostic (ICD-10-PCS; principal; 2023-02-09 18:30)
DX: K29.70 Gastritis, unspecified, without bleeding (principal); J96.21 Acute and chronic respiratory failure with hypoxia; J96.22 Acute and chronic respiratory failure with hypercapnia; G93.41 Metabolic encephalopathy; I50.32 Chronic diastolic (congestive) heart failure; I13.0 Hypertensive heart and chronic kidney disease with heart failure and stage 1 through stage 4 chronic kidney disease, or unspecified chronic kidney disease; N39.0 Urinary tract infection, site not specified; E87.29 Other acidosis; N12 Tubulo-interstitial nephritis, not specified as acute or chronic; E87.0 Hyperosmolality and hypernatremia; N17.9 Acute kidney failure, unspecified; F05 Delirium due to known physiological condition; E66.9 Obesity, unspecified; N18.30 Chronic kidney disease, stage 3 unspecified; E11.22 Type 2 diabetes mellitus with diabetic chronic kidney disease; J44.9 Chronic obstructive pulmonary disease, unspecified; I27.29 Other secondary pulmonary hypertension; H35.30 Unspecified macular degeneration; K44.9 Diaphragmatic hernia without obstruction or gangrene; H54.61 Unqualified visual loss, right eye, normal vision left eye; K21.9 Gastro-esophageal reflux disease without esophagitis; F32.A Depression, unspecified; M10.9 Gout, unspecified; F17.210 Nicotine dependence, cigarettes, uncomplicated; G25.81 Restless legs syndrome; M48.061 Spinal stenosis, lumbar region without neurogenic claudication; E87.6 Hypokalemia; E11.40 Type 2 diabetes mellitus with diabetic neuropathy, unspecified; K74.60 Unspecified cirrhosis of liver; K80.20 Calculus of gallbladder without cholecystitis without obstruction; E11.649 Type 2 diabetes mellitus with hypoglycemia without coma; G47.33 Obstructive sleep apnea (adult) (pediatric); K76.0 Fatty (change of) liver, not elsewhere classified; R10.11 Right upper quadrant pain; M79.7 Fibromyalgia; K31.89 Other diseases of stomach and duodenum; K30 Functional dyspepsia; Z68.39 Body mass index [BMI] 39.0-39.9, adult; Z99.81 Dependence on supplemental oxygen; Z79.899 Other long term (current) drug therapy; Z86.16 Personal history of COVID-19; Z85.3 Personal history of malignant neoplasm of breast; Z90.12 Acquired absence of left breast and nipple; Z90.49 Acquired absence of other specified parts of digestive tract; Z79.85 Long-term (current) use of injectable non-insulin antidiabetic drugs

== ENCOUNTER → 2023-03-04 | Outpatient (CLI) | payer MEDICARE, MEDICAID ==
[~2023-03-04] MED LIST changes: +AZEL1SPR3; +BACI1CAP PO; +BENZ200C70 PO; +BUPR-368 PO; +CEFD300CAP PO; +LIDO1ADH10 TOP; +POTA-298 PO; -POTA1TAB14 PO; +PROT1TAB2 PO; +SUCR1TA PO; +TRAN1DIS4 TOP; +TRAZ-252 PO; +VENTAER INH
== END ==
LOC: M RAD 09:30
PROVIDERS: ATTEND Internal Medicine Critical Care Medicine
DX: R91.8 Other nonspecific abnormal finding of lung field (principal); I51.7 Cardiomegaly; I27.20 Pulmonary hypertension, unspecified

== ENCOUNTER 2023-11-11 17:53 | Emergency (ER) | payer MEDICARE, MEDICAID ==
[~2023-11-11] VITALS: Ht 167.6 cm; Wt 106.4 kg
[~2023-11-11 17:53] MED LIST changes: -ROPI4TAB3 PO; +ROPI4TAB36 PO; +ROPI5TAB23 PO; -ROPI5TAB3 PO
[2023-11-11 18:46] LABS: BASO # 0.1 10^3/uL (0.0-0.2); BASO % 0.6 % (0.0-1.0); EOS # 0.2 10^3/uL (0.0-0.5); EOS % 2.1 % (0.0-3.0); HEMATOCRIT 41.5 % (36.0-47.0); HEMOGLOBIN 13.4 g/dl (12.0-15.5); LYMPH # 1.3 10^3/uL (1.5-5.0); LYMPH % 16.6 % (24.0-44.0); MEAN CORPUSCULAR HEMOGLOBIN 30.9 pg (27.0-33.0); MEAN CORPUSCULAR HGB CONC 32.3 g/dl (32.0-36.5); MEAN CORPUSCULAR VOLUME 95.8 fl (80.0-96.0); MONO # 0.5 10^3/uL (0.0-0.8); MONO % 6.8 % (2.0-8.0); NEUTROPHILS # 5.8 10^3/uL (1.5-8.5); NEUTROPHILS % 73.3 % (36.0-66.0); PLATELET COUNT, AUTOMATED 231 10^3/uL (150-450); RED BLOOD COUNT 4.33 10^6/uL (4.00-5.40)
[2023-11-11 18:54] LABS: VENOUS BASE EXCESS -1.1 (-2.0-2.0); VENOUS HCO3 24.2 MMOL/L (23.0-27.0); VENOUS O2 SATURATION 89.4 % (60.0-80.0); VENOUS PARTIAL PRESSURE CO2 42.9 mmHg (38.0-50.0); VENOUS PARTIAL PRESSURE O2 59.4 mmHg (30.0-50.0); VENOUS STANDARD HCO3 23.4 MMOL/L; VENOUS TOTAL CO2 25.6 MMOL/L (24.0-28.0)
[2023-11-11] MEDS ORDERED: ACET-683 (18:55)
[2023-11-11] MEDS ORDERED: TRAM50TA2 (18:55)
[2023-11-11 19:08] LABS: ALBUMIN 3.3 G/DL (3.2-5.2); BILIRUBIN,DIRECT 0.2 MG/DL (<0.4); BILIRUBIN,TOTAL 0.5 MG/DL (0.3-1.2); CALCIUM LEVEL 9.7 MG/DL (8.3-10.6); CREATININE FOR GFR 1.47 MG/DL (0.55-1.30); GLOMERULAR FILTRATION RATE 36.8 (>39); POTASSIUM SERUM 3.8 MMOL/L (3.5-5.1); TOTAL PROTEIN 7.1 G/DL (5.7-8.2)
[2023-11-11 19:11] LABS: THYROID STIMULATING HORMONE 1.994 uIU/ML (0.55-4.78)
[2023-11-11] MEDS ORDERED: KETOROLAC 30 MG/ML 1ML VIAL IV ONE (19:20)
[2023-11-11] MEDS ORDERED: NS 500 ML IV ONE (19:25)
[2023-11-11] MEDS ORDERED: diazePAM 10MG/2ML SYRINGE IV ONE (19:50)
[2023-11-11 20:00] VITALS: BP 148/88; TEMP 98.5; O2SAT 94
[2023-11-11] MEDS ORDERED: VALI5TAB PO (21:30)
== END 2023-11-11 21:54 | disposition home or self-care (01) ==
LOC: M ED 17:53
DX: S20.219A Contusion of unspecified front wall of thorax, initial encounter (principal); M62.830 Muscle spasm of back; W06.XXXA Fall from bed, initial encounter; Y92.9 Unspecified place or not applicable; Y93.9 Activity, unspecified; Y99.9 Unspecified external cause status; I50.9 Heart failure, unspecified; E11.9 Type 2 diabetes mellitus without complications; K21.9 Gastro-esophageal reflux disease without esophagitis; J44.9 Chronic obstructive pulmonary disease, unspecified; E78.5 Hyperlipidemia, unspecified; N18.30 Chronic kidney disease, stage 3 unspecified; Z99.81 Dependence on supplemental oxygen
CPT/HCPCS: 71045; 71250; 72128; 80048; 80076; 82803; 83605; 83880; 84443; 85025; 87040; 87486; 87581; 87633; 87798; 93005; 93041; 94760; 96374; 96375; 99284; J1885; J3360

== ENCOUNTER 2024-01-03 16:48 | Inpatient (IN) | payer MEDICARE, MEDICAID ==
[~2024-01-03] VITALS: Ht 167.6 cm; Wt 109.7 kg
[~2024-01-03 16:48] MED LIST changes: +ACET-683; -AZEL1SPR3; +VALI5TAB PO
[2024-01-03 18:59] LABS: BASO % 0.3 % (0.0-1.0); EOS # 0.1 10^3/uL (0.0-0.5); EOS % 0.8 % (0.0-3.0); HEMATOCRIT 32.1 % (36.0-47.0); HEMOGLOBIN 10.2 g/dl (12.0-15.5); LYMPH # 1.1 10^3/uL (1.5-5.0); LYMPH % 9.1 % (24.0-44.0); MEAN CORPUSCULAR HEMOGLOBIN 31.7 pg (27.0-33.0); MEAN CORPUSCULAR HGB CONC 31.8 g/dl (32.0-36.5); MEAN CORPUSCULAR VOLUME 99.7 fl (80.0-96.0); MONO # 0.9 10^3/uL (0.0-0.8); MONO % 7.4 % (2.0-8.0); NEUTROPHILS # 9.8 10^3/uL (1.5-8.5); NEUTROPHILS % 81.8 % (36.0-66.0); PLATELET COUNT, AUTOMATED 240 10^3/uL (150-450); RED BLOOD COUNT 3.22 10^6/uL (4.00-5.40)
[2024-01-03 19:29] LABS: BILIRUBIN,DIRECT 0.3 MG/DL (<0.4); BILIRUBIN,TOTAL 0.7 MG/DL (0.3-1.2); CALCIUM LEVEL 8.8 MG/DL (8.3-10.6); CREATININE FOR GFR 1.46 MG/DL (0.55-1.30); POTASSIUM SERUM 4.3 MMOL/L (3.5-5.1); TOTAL PROTEIN 6.2 G/DL (5.7-8.2)
[2024-01-03 21:10] LABS: VENOUS BASE EXCESS -1.7 (-2.0-2.0); VENOUS HCO3 24.4 MMOL/L (23.0-27.0); VENOUS PARTIAL PRESSURE CO2 47.2 mmHg (38.0-50.0); VENOUS PARTIAL PRESSURE O2 36.6 mmHg (30.0-50.0); VENOUS PH 7.332 UNITS (7.330-7.430); VENOUS STANDARD HCO3 22.5 MMOL/L; VENOUS TOTAL CO2 25.9 MMOL/L (24.0-28.0)
[2024-01-03 21:26] LABS: INR 1.09; PROTHROMBIN TIME 13.8 SECONDS (12.5-14.5)
[2024-01-03] MEDS: methylPREDNISolone 125MG 2ML VIAL IV ONE (21:29)
[2024-01-03 21:31] LABS: C REACTIVE PROTEIN QUANTITATIV 8.6 MG/DL (<1.0)
[2024-01-03 21:38] LABS: CK-MB VALUE MASS < 1.0 NG/ML (<3.6)
[2024-01-03 21:39] LABS: CPK CREATINE PHOSPHOKINASE 50 U/L (34-145)
[2024-01-03 21:40] LABS: PROCALCITONIN 0.13 ng/ml
[2024-01-03] MEDS: IPRATROPIUM 0.5MG/ALBUTEROL 2.5MG INH SOL UD 3ML (DUONEB) NEB ONE ×2 (21:44)
[2024-01-03] MEDS: cefTRIAXone SOD 1 GM in D5W MINI-BAG PLUS 50 ML IV ONE (23:11)
[2024-01-03] MEDS: AZITHROMYCIN INJ 500 MG, VIAL MATE ADAPTER 1 EACH in NS 250 ML IV ONE (23:50)
[2024-01-04] VITALS (7 sets, daily range): BP systolic 122–141; BP diastolic 53–60; TEMP 97.3–97.9; O2SAT 92–96
[2024-01-04] MEDS ORDERED: SUCR1TAB56 PO (00:19)
[2024-01-04] MEDS ORDERED: SEMA0.257 SQ (00:19)
[2024-01-04] MEDS ORDERED: PANT40TA29 PO (00:19)
[2024-01-04] MEDS ORDERED: CLOP75TA2 PO (00:22)
[2024-01-04] MEDS ORDERED: MUCU600T12 PO (00:38)
[2024-01-04] MEDS ORDERED: GUAI100L55 PO (00:38)
[2024-01-04] MEDS ORDERED: ASPI-226 PO (00:38)
[2024-01-04] MEDS ORDERED: FURO20TA2 PO (00:38)
[2024-01-04] MEDS ORDERED: HOME MED LIST COMPLETE! XX SCH (00:45)
[2024-01-04] MEDS ORDERED: BENZONATATE 100MG CAPSULE PO PRN (02:05)
[2024-01-04] MEDS ORDERED: ALBUTEROL 90 MCG/ACT 8GM HFA INHALER INH PRN (02:05)
[2024-01-04] MEDS ORDERED: traMADol 50 MG TAB PO PRN (02:05)
[2024-01-04] MEDS: PANTOPRAZOLE 40MG VIAL IV SCH (02:32)
[2024-01-04] MEDS ORDERED: GLUCAGON INJ 1MG VIAL SC PRN (02:35)
[2024-01-04] MEDS ORDERED: DEXTROSE 50% 50ML SYRINGE IV PRN (02:35)
[2024-01-04] MEDS ORDERED: GLUCOSE 4GM CHEW TABLET PO PRN (02:35)
[2024-01-04] MEDS: IPRATROPIUM 0.5MG/ALBUTEROL 2.5MG INH SOL UD 3ML (DUONEB) NEB SCH (03:27)
[2024-01-04] MEDS ORDERED: IPRATROPIUM 0.5MG/ALBUTEROL 2.5MG INH SOL UD 3ML (DUONEB) NEB PRN (04:15)
[2024-01-04] MEDS: allopurinoL 300 MG TAB PO SCH (05:27)
[2024-01-04] MEDS: rOPINIRole 2MG TAB PO SCH (05:28)
[2024-01-04] MEDS: guaiFENesin 200 MG TAB PO SCH (05:28)
[2024-01-04 07:26] LABS: BASO % 0.1 % (0.0-1.0); HEMATOCRIT 29.2 % (36.0-47.0); HEMOGLOBIN 9.3 g/dl (12.0-15.5); LYMPH # 0.4 10^3/uL (1.5-5.0); LYMPH % 5.2 % (24.0-44.0); MEAN CORPUSCULAR HEMOGLOBIN 31.5 pg (27.0-33.0); MEAN CORPUSCULAR HGB CONC 31.8 g/dl (32.0-36.5); MONO # 0.1 10^3/uL (0.0-0.8); NEUTROPHILS # 6.4 10^3/uL (1.5-8.5); PLATELET COUNT, AUTOMATED 222 10^3/uL (150-450); RED BLOOD COUNT 2.95 10^6/uL (4.00-5.40); WHITE BLOOD COUNT 6.9 10^3/uL (4.0-10.0)
[2024-01-04 07:54] LABS: CALCIUM LEVEL 8.7 MG/DL (8.3-10.6); CREATININE FOR GFR 1.42 MG/DL (0.55-1.30); GLOMERULAR FILTRATION RATE 38.2 (>39); MAGNESIUM LEVEL 2.4 MG/DL (1.8-2.4); POTASSIUM SERUM 4.5 MMOL/L (3.5-5.1)
[2024-01-04] MEDS: TIOTROPIUM INHALER/CAPSULE (SPIRIVA) INH SCH (08:01)
[2024-01-04] MEDS: SYMBICORT 160/4.5MCG INHALER 6GM INH SCH (08:01)
[2024-01-04] MEDS: INSULIN LISPRO (NovoLOG) PER UNIT SC SCH ×2 (08:39→22:16)
[2024-01-04] MEDS: AZELASTINE 137MCG NASAL SPY 30 ML (ASTELIN) SCH (08:39)
[2024-01-04] MEDS: methylPREDNISolone 40MG 1ML VIAL IV SCH (08:39)
[2024-01-04] MEDS: ASPIRIN 81MG ENTERIC TABLET PO SCH (08:40)
[2024-01-04] MEDS: HEPARIN SOD (PORCINE) 5000UNITS/ML 1ML VIAL/SYRINGE SC SCH (08:40)
[2024-01-04] MEDS: FLUoxetine 20MG CAP PO SCH (08:40)
[2024-01-04] MEDS: CLOPIDOGREL 75 MG TAB PO SCH (08:40)
[2024-01-04] MEDS: SUCRALFATE 1 GM TAB PO SCH (08:40)
[2024-01-04] MEDS: TORSEMIDE (DEMADEX) 50 MG PER 1/2 TAB PO SCH (08:40)
[2024-01-04] MEDS: CALCITRIOL 0.25 MCG CAP (S0169) PO SCH (08:40)
[2024-01-04] MEDS: GABAPENTIN 300 MG CAP PO SCH ×2 (08:41→22:10)
[2024-01-04] MEDS: FUROSEMIDE 20 MG TAB PO SCH (08:41)
[2024-01-04] MEDS: traMADol 50 MG TAB PO SCH (08:41)
[2024-01-04] MEDS: SPIRONOLACTONE 25 MG TAB PO SCH (08:41)
[2024-01-04] MEDS: buPROPion **XL** TABLET 150MG (WELLBUTRIN XL) PO SCH (08:41)
[2024-01-04] MEDS: MIRALAX *UNIT DOSE* 17GM PACKET PO PRN (12:41)
[2024-01-04] MEDS: ATORVASTATIN 20 MG TAB PO SCH (22:12)
[2024-01-04] MEDS: AZITHROMYCIN 250MG TABLET PO SCH (22:12)
[2024-01-04] MEDS: traMADol 50 MG TAB PO PRN (22:12)
[2024-01-04] MEDS: KETOCONAZOLE 2% CREAM TOP SCH (22:15)
[2024-01-05 06:38] VITALS: BP 131/67; TEMP 97.1; O2SAT 89
[2024-01-05 07:56] LABS: HEMOGLOBIN 9.6 g/dl (12.0-15.5); MEAN CORPUSCULAR HEMOGLOBIN 31.3 pg (27.0-33.0); MEAN CORPUSCULAR VOLUME 97.7 fl (80.0-96.0); PLATELET COUNT, AUTOMATED 263 10^3/uL (150-450); RED BLOOD COUNT 3.07 10^6/uL (4.00-5.40); WHITE BLOOD COUNT 9.6 10^3/uL (4.0-10.0)
[2024-01-05] MEDS: predniSONE 20 MG TAB PO SCH (08:13)
[2024-01-05 08:27] LABS: CALCIUM LEVEL 9.3 MG/DL (8.3-10.6); CREATININE FOR GFR 1.47 MG/DL (0.55-1.30); GLOMERULAR FILTRATION RATE 36.7 (>39); POTASSIUM SERUM 4.6 MMOL/L (3.5-5.1)
[2024-01-05] MEDS ORDERED: CLOP75TA2 PO (11:20)
[2024-01-05] MEDS ORDERED: PRED50TA PO (11:20)
[2024-01-05] MEDS ORDERED: PRED20TA PO (11:20)
[2024-01-05] MEDS ORDERED: AZIT-12 PO (11:20)
[2024-01-05] MEDS ORDERED: KETO2CR TOP (11:20)
[2024-01-05] MEDS ORDERED: IPRA0.00 INH (11:20)
== END 2024-01-05 13:30 | disposition home health service (06) | DRG 191 ==
LOC: M ED 16:48 → M ED INP 23:46 → ENRESERV 01-04 00:26 → M MS5PR 01-04 02:50
PROVIDERS: ADMIT Family Medicine; ATTEND Student in an Organized Health Care Education/Training Program
DX: J44.1 Chronic obstructive pulmonary disease with (acute) exacerbation (principal); J96.11 Chronic respiratory failure with hypoxia; N25.81 Secondary hyperparathyroidism of renal origin; I27.29 Other secondary pulmonary hypertension; E78.5 Hyperlipidemia, unspecified; I12.9 Hypertensive chronic kidney disease with stage 1 through stage 4 chronic kidney disease, or unspecified chronic kidney disease; N18.30 Chronic kidney disease, stage 3 unspecified; G47.33 Obstructive sleep apnea (adult) (pediatric); H35.30 Unspecified macular degeneration; D63.1 Anemia in chronic kidney disease; E11.22 Type 2 diabetes mellitus with diabetic chronic kidney disease; K21.9 Gastro-esophageal reflux disease without esophagitis; K44.9 Diaphragmatic hernia without obstruction or gangrene; F32.A Depression, unspecified; G25.81 Restless legs syndrome; E66.9 Obesity, unspecified; Z85.3 Personal history of malignant neoplasm of breast; Z90.12 Acquired absence of left breast and nipple; Z87.891 Personal history of nicotine dependence; Z80.3 Family history of malignant neoplasm of breast; Z99.81 Dependence on supplemental oxygen; G89.29 Other chronic pain; Z68.38 Body mass index [BMI] 38.0-38.9, adult; Z79.82 Long term (current) use of aspirin; Z79.891 Long term (current) use of opiate analgesic; Z79.899 Other long term (current) drug therapy; Z79.02 Long term (current) use of antithrombotics/antiplatelets; R21 Rash and other nonspecific skin eruption

== ENCOUNTER 2024-05-04 14:29 | Emergency (ER) | payer MEDICARE, MEDICAID ==
[~2024-05-04] VITALS: Ht 167.6 cm; Wt 106.8 kg
[~2024-05-04 14:29] MED LIST changes: +ASPI-226 PO; +AZIT-12 PO; +CLOP75TA2 PO; +FLUO-290 PO; +FLUO-365 PO; -FLUO10CA18 PO; -FLUO20CA22 PO; +FURO20TA2 PO; +GUAI100L55 PO; +IPRA0.00 INH; +KETO2CR TOP; +MUCU600T12 PO; +ONDA-282 PO; -ONDA4TAB6 PO; +PANT40TA29 PO; +PRED50TA PO; +SEMA0.257 SQ; +SUCR1TAB56 PO
[2024-05-04] MEDS: methocarbamoL 750 MG TAB PO ONE (18:13)
[2024-05-04] MEDS: traMADol 50 MG TAB PO ONE (18:14)
[2024-05-04] MEDS: methylPREDNISolone 125MG 2ML VIAL IV ONE (18:15)
[2024-05-04] MEDS ORDERED: methylPREDNISolone 1,000 MG, VIAL MATE ADAPTER 1 EACH in NS 250 ML IV ONE (18:15)
[2024-05-04] MEDS: methylPREDNISolone 125MG 2ML VIAL IM ONE (18:15)
[2024-05-04] MEDS: MORPHINE 4 MG/ML 1ML VIAL IV ONE (21:24)
[2024-05-04 21:36] LABS: BASO % 0.6 % (0.0-1.0); EOS % 0.4 % (0.0-3.0); HEMOGLOBIN 10.2 g/dl (12.0-15.5); LYMPH # 0.6 10^3/uL (1.5-5.0); LYMPH % 8.5 % (24.0-44.0); MEAN CORPUSCULAR HEMOGLOBIN 25.2 pg (27.0-33.0); MONO # 0.1 10^3/uL (0.0-0.8); MONO % 1.9 % (2.0-8.0); NEUTROPHILS # 6.1 10^3/uL (1.5-8.5); NEUTROPHILS % 87.6 % (36.0-66.0); PLATELET COUNT, AUTOMATED 298 10^3/uL (150-450); RED BLOOD COUNT 4.05 10^6/uL (4.00-5.40); WHITE BLOOD COUNT 6.9 10^3/uL (4.0-10.0)
[2024-05-04 21:57] LABS: CREATININE FOR GFR 1.22 MG/DL (0.55-1.30); GLOMERULAR FILTRATION RATE 45.5 (>39); POTASSIUM SERUM 4.8 MMOL/L (3.5-5.1)
[2024-05-05] MEDS: MORPHINE 4 MG/ML 1ML VIAL IV PRN (03:14)
[2024-05-05 10:52] VITALS: BP 160/69; TEMP 96.2; O2SAT 93
[2024-05-05] MEDS: ONDANSETRON 4MG 2ML VIAL IV ONE (10:53)
[2024-05-05] MEDS: MORPHINE 4 MG/ML 1ML VIAL IV ONE (10:53)
== END 2024-05-05 11:10 | disposition short-term general hospital (02) ==
LOC: M ED 14:29
DX: M51.26 Other intervertebral disc displacement, lumbar region (principal); M54.16 Radiculopathy, lumbar region; I50.22 Chronic systolic (congestive) heart failure; E11.9 Type 2 diabetes mellitus without complications; J44.9 Chronic obstructive pulmonary disease, unspecified; E03.9 Hypothyroidism, unspecified; N18.9 Chronic kidney disease, unspecified; E78.5 Hyperlipidemia, unspecified; Z79.51 Long term (current) use of inhaled steroids; Z79.1 Long term (current) use of non-steroidal anti-inflammatories (NSAID); Z79.52 Long term (current) use of systemic steroids; Z79.4 Long term (current) use of insulin; Z79.899 Other long term (current) drug therapy
CPT/HCPCS: 72148; 80048; 85025; 96372; 96374; 96375; 96376; 99284; J2405; J2919

== ENCOUNTER → 2024-05-11 | Outpatient (CLI) | payer MEDICAID, MEDICARE ==
[~2024-05-11] MED LIST changes: +BARIUM SULFATE 700 MG TABLET (E-Z-DISK) As Ordered ONE; +E-Z-PAQUE 96% w/w SUSP 176GM BTL As Ordered ONE; +VARIBAR NECTAR 40% w/v 240ML SUSP BTL As Ordered ONE; +VARIBAR PUDDING 40% w/v 230ML TUBE As Ordered ONE
== END ==
LOC: M RAD 10:40
PROVIDERS: ATTEND Internal Medicine Critical Care Medicine
DX: J18.9 Pneumonia, unspecified organism (principal)

== ENCOUNTER 2024-07-08 05:58 | Inpatient (IN) | payer MEDICARE, MEDICAID ==
[~2024-07-08] VITALS: Ht 167.6 cm; Wt 116.8 kg
[~2024-07-08 05:58] MED LIST changes: -BARIUM SULFATE 700 MG TABLET (E-Z-DISK) As Ordered ONE; -E-Z-PAQUE 96% w/w SUSP 176GM BTL As Ordered ONE; +GABA-1490 PO; -GABA600T4 PO; -VARIBAR NECTAR 40% w/v 240ML SUSP BTL As Ordered ONE; -VARIBAR PUDDING 40% w/v 230ML TUBE As Ordered ONE
[2024-07-08] MEDS: ACETAMINOPHEN *IV* 1,000 MG in IV 1 EA IV ONE (07:07)
[2024-07-08 07:32] LABS: BASO # 0.1 10^3/uL (0.0-0.2); BASO % 0.6 % (0.0-1.0); EOS # 0.1 10^3/uL (0.0-0.5); EOS % 1.6 % (0.0-3.0); HEMATOCRIT 36.5 % (36.0-47.0); HEMOGLOBIN 11.1 g/dl (12.0-15.5); LYMPH # 1.2 10^3/uL (1.5-5.0); LYMPH % 15.1 % (24.0-44.0); MEAN CORPUSCULAR HEMOGLOBIN 25.5 pg (27.0-33.0); MEAN CORPUSCULAR HGB CONC 30.4 g/dl (32.0-36.5); MEAN CORPUSCULAR VOLUME 83.7 fl (80.0-96.0); MONO # 0.8 10^3/uL (0.0-0.8); MONO % 9.6 % (2.0-8.0); NEUTROPHILS # 5.8 10^3/uL (1.5-8.5); NEUTROPHILS % 72.2 % (36.0-66.0); PLATELET COUNT, AUTOMATED 288 10^3/uL (150-450); RED BLOOD COUNT 4.36 10^6/uL (4.00-5.40)
[2024-07-08 07:44] LABS: INR 1.08; PROTHROMBIN TIME 13.6 SECONDS (12.5-14.5)
[2024-07-08 07:53] LABS: CK-MB VALUE MASS < 1.0 NG/ML (<3.6)
[2024-07-08 07:55] LABS: ALBUMIN 3.2 G/DL (3.2-5.2); ALKALINE PHOSPHATASE 179 U/L (46-116); ALT/SGPT 21 U/L (7.0-40); AST/SGOT 18 U/L (<34); BILIRUBIN,DIRECT 0.2 MG/DL (<0.4); BILIRUBIN,TOTAL 0.5 MG/DL (0.3-1.2); BLOOD UREA NITROGEN 26 MG/DL (9-23); CALCIUM LEVEL 9.7 MG/DL (8.3-10.6); CARBON DIOXIDE LEVEL 30 MMOL/L (20-31); CHLORIDE LEVEL 109 MMOL/L (98-107); CREATININE FOR GFR 1.49 MG/DL (0.55-1.30); GLOMERULAR FILTRATION RATE 36.1 (>39); GLUCOSE, FASTING 85 MG/DL (74-106); POTASSIUM SERUM 4.4 MMOL/L (3.5-5.1); SODIUM LEVEL 142 MMOL/L (136-145); TOTAL PROTEIN 6.9 G/DL (5.7-8.2)
[2024-07-08 07:57] LABS: CPK CREATINE PHOSPHOKINASE 62 U/L (34-145); MB/CK RELATIVE INDEX 1.61 (< OR =4)
[2024-07-08] MEDS ORDERED: ISOVUE-370 76% 100ML VIAL As Ordered ONE (08:29)
[2024-07-08] MEDS: NS 500 ML IV ONE (09:23)
[2024-07-08 09:29] LABS: CK-MB VALUE MASS < 1.0 NG/ML (<3.6)
[2024-07-08 09:39] LABS: CPK CREATINE PHOSPHOKINASE 72 U/L (34-145); MB/CK RELATIVE INDEX 1.38 (< OR =4)
[2024-07-08] MEDS: MORPHINE 2 MG/ML 1ML VIAL IV ONE (10:20)
[2024-07-08] MEDS: IPRATROPIUM 0.5MG/ALBUTEROL 2.5MG INH SOL UD 3ML (DUONEB) NEB SCH ×2 (11:33→19:49)
[2024-07-08] MEDS: PIPERACILLIN/TAZOBACTAM SOD 3.375 GM in D5W MINI-BAG PLUS 50 ML IV ONE (11:59)
[2024-07-08] MEDS: VANCOMYCIN HCL 750 MG, VIAL MATE ADAPTER 1 EACH in D5W 250 ML IV ONE ×2 (14:33→16:04)
[2024-07-08] MEDS ORDERED: ACETAMINOPHEN 500 MG TAB PO PRN (16:15)
[2024-07-08] MEDS: predniSONE 20 MG TAB PO SCH (16:29)
[2024-07-08] MEDS: HYDROMORPHONE HCL 0.5 MG/ 0.5 ML SYRINGE IV PRN ×2 (16:30→20:11)
[2024-07-08] MEDS ORDERED: BUPR450T4 PO (16:45)
[2024-07-08] MEDS ORDERED: MAGN400T35 PO (16:47)
[2024-07-08] MEDS ORDERED: CYCL-707 PO (16:47)
[2024-07-08] MEDS ORDERED: TORS20TA2 PO (16:49)
[2024-07-08 17:05] VITALS: BP 121/59; TEMP 97.4; O2SAT 20
[2024-07-08] MEDS ORDERED: GLUCAGON INJ 1MG VIAL SC PRN (17:10)
[2024-07-08] MEDS ORDERED: GLUCOSE 4 GM CHEW PO PRN (17:10)
[2024-07-08] MEDS ORDERED: DEXTROSE 50% 50ML SYRINGE IV PRN (17:10)
[2024-07-08] MEDS: INSULIN LISPRO (NovoLOG) PER UNIT SC SCH ×2 (17:30→20:11)
[2024-07-08] MEDS: LR 1,000 ML IV SCH (17:35)
[2024-07-08] MEDS ORDERED: DICL100G10 TOP (18:53)
[2024-07-08] MEDS ORDERED: ALLO100T PO (18:58)
[2024-07-08] MEDS ORDERED: LIDO1PAD TOP (19:00)
[2024-07-08] MEDS ORDERED: HOME MED LIST COMPLETE! XX SCH (19:05)
[2024-07-08 20:00] VITALS: O2SAT 90
[2024-07-08] MEDS: ATORVASTATIN 20 MG TAB PO SCH (20:08)
[2024-07-08] MEDS: guaiFENesin ER TABLET 600 MG TAB PO SCH (20:08)
[2024-07-08 20:22] VITALS: BP 102/55; TEMP 96.8; O2SAT 91
[2024-07-08 21:00] VITALS: O2SAT 91
[2024-07-08] MEDS: PANTOPRAZOLE 40MG TAB (PROTONIX) PO SCH (21:07)
[2024-07-08] MEDS: rOPINIRole 2MG TAB PO SCH (21:07)
[2024-07-08] MEDS: NYSTATIN 100,000 UNITS/GM TOPICAL PWD 15GM TOP SCH (21:07)
[2024-07-08 22:00] VITALS: O2SAT 90
[2024-07-08] MEDS: HEPARIN SOD (PORCINE) 5000UNITS/ML 1ML VIAL/SYRINGE SC SCH (22:28)
[2024-07-08 23:00] VITALS: O2SAT 87
[2024-07-09] VITALS (26 sets, daily range): BP systolic 120–157; BP diastolic 56–70; TEMP 97.3–97.9; O2SAT 88–99
[2024-07-09] MEDS: TORSEMIDE 20 MG TAB PO SCH (08:27)
[2024-07-09] MEDS: ASPIRIN 81MG CHEW TABLET PEG SCH (08:28)
[2024-07-09] MEDS: buPROPion **XL** TABLET 150MG (WELLBUTRIN XL) PO SCH (08:29)
[2024-07-09] MEDS: FLUoxetine 20MG CAP PO SCH (08:29)
[2024-07-09] MEDS: GABAPENTIN 300 MG CAP PO SCH (08:30)
[2024-07-09] MEDS: SPIRONOLACTONE 25 MG TAB PO SCH (08:30)
[2024-07-09] MEDS: allopurinoL 100 MG TAB PO SCH (08:32)
[2024-07-09] MEDS: VANCOMYCIN HCL 1,000 MG, VIAL MATE ADAPTER 1 EACH in D5W 250 ML IV SCH (08:32)
[2024-07-09] MEDS ORDERED: allopurinoL 300 MG TAB PO SCH (09:00)
[2024-07-09 10:53] LABS: VANCOMYCIN RANDOM 9.3 UG/ML
[2024-07-09 10:54] LABS: CALCIUM LEVEL 8.7 MG/DL (8.3-10.6); CREATININE FOR GFR 1.19 MG/DL (0.55-1.30); GLOMERULAR FILTRATION RATE 46.8 (>39)
[2024-07-09] MEDS: PIPERACILLIN/TAZOBACTAM SOD 4.5 GM in D5W MINI-BAG PLUS 50 ML IV SCH (12:22)
[2024-07-09 13:14] LABS: PROCALCITONIN 0.1 ng/ml
[2024-07-09] MEDS: VANCOMYCIN HCL 750 MG, VIAL MATE ADAPTER 1 EACH in D5W 250 ML IV SCH (13:31)
[2024-07-10] VITALS (23 sets, daily range): BP systolic 135–145; BP diastolic 61–65; TEMP 97.3–97.8; O2SAT 90–99
[2024-07-10 06:17] LABS: HEMATOCRIT 32.8 % (36.0-47.0); MEAN CORPUSCULAR HEMOGLOBIN 25.5 pg (27.0-33.0); MEAN CORPUSCULAR HGB CONC 30.5 g/dl (32.0-36.5); MEAN CORPUSCULAR VOLUME 83.7 fl (80.0-96.0); PLATELET COUNT, AUTOMATED 282 10^3/uL (150-450); RED BLOOD COUNT 3.92 10^6/uL (4.00-5.40); WHITE BLOOD COUNT 9.2 10^3/uL (4.0-10.0)
[2024-07-10 06:35] LABS: CALCIUM LEVEL 8.6 MG/DL (8.3-10.6); CREATININE FOR GFR 1.42 MG/DL (0.55-1.30); GLOMERULAR FILTRATION RATE 38.2 (>39); POTASSIUM SERUM 4.1 MMOL/L (3.5-5.1)
[2024-07-10] MEDS: VANCOMYCIN HCL 750 MG, VIAL MATE ADAPTER 1 EACH in D5W 250 ML IV SCH (13:16)
[2024-07-10] MEDS: VANCOMYCIN HCL 500 MG in D5W MINI-BAG PLUS 100 ML IV SCH (14:30)
[2024-07-11] VITALS (23 sets, daily range): BP systolic 122–168; BP diastolic 57–74; TEMP 96.8–97.9; O2SAT 92–97
[2024-07-11 06:48] LABS: HEMATOCRIT 34.7 % (36.0-47.0); HEMOGLOBIN 10.4 g/dl (12.0-15.5); MEAN CORPUSCULAR HEMOGLOBIN 25.2 pg (27.0-33.0); PLATELET COUNT, AUTOMATED 287 10^3/uL (150-450); RED BLOOD COUNT 4.13 10^6/uL (4.00-5.40); WHITE BLOOD COUNT 8.4 10^3/uL (4.0-10.0)
[2024-07-11 07:17] LABS: CALCIUM LEVEL 9.2 MG/DL (8.3-10.6); CREATININE FOR GFR 1.58 MG/DL (0.55-1.30); GLOMERULAR FILTRATION RATE 33.8 (>39)
[2024-07-11] MEDS ORDERED: PILL CUTTER 1 EACH XX ONE (09:35)
[2024-07-11] MEDS: MUPIROCIN 2% OINT 22 GM TUBE TOP SCH (09:44)
[2024-07-11] MEDS: NS 500 ML IV ONE (12:46)
[2024-07-11] MEDS: ALBUTEROL SULFATE 2.5MG/0.5ML INH NEB SOLN NEB PRN (22:41)
[2024-07-12 04:00] VITALS: BP 142/72; TEMP 98.1; O2SAT 95
[2024-07-12 05:32] LABS: BASO # 0.1 10^3/uL (0.0-0.2); BASO % 0.6 % (0.0-1.0); EOS # 0.1 10^3/uL (0.0-0.5); EOS % 0.8 % (0.0-3.0); HEMATOCRIT 35.1 % (36.0-47.0); HEMOGLOBIN 10.7 g/dl (12.0-15.5); LYMPH # 1.7 10^3/uL (1.5-5.0); LYMPH % 19.4 % (24.0-44.0); MEAN CORPUSCULAR HEMOGLOBIN 25.5 pg (27.0-33.0); MEAN CORPUSCULAR HGB CONC 30.5 g/dl (32.0-36.5); MEAN CORPUSCULAR VOLUME 83.6 fl (80.0-96.0); MONO # 0.7 10^3/uL (0.0-0.8); MONO % 8.2 % (2.0-8.0); NEUTROPHILS # 6.2 10^3/uL (1.5-8.5); NEUTROPHILS % 70.1 % (36.0-66.0); PLATELET COUNT, AUTOMATED 268 10^3/uL (150-450); WHITE BLOOD COUNT 8.9 10^3/uL (4.0-10.0)
[2024-07-12 06:07] LABS: CALCIUM LEVEL 9.2 MG/DL (8.3-10.6); CREATININE FOR GFR 1.45 MG/DL (0.55-1.30); GLOMERULAR FILTRATION RATE 37.3 (>39); MAGNESIUM LEVEL 2.1 MG/DL (1.8-2.4); POTASSIUM SERUM 5.5 MMOL/L (3.5-5.1)
[2024-07-12 08:00] VITALS: BP 139/71; TEMP 97.9; O2SAT 95
[2024-07-12] MEDS: NS 500 ML IV ONE (09:18)
[2024-07-12] MEDS: PATIROMER SORBITEX CALCIUM 8.4 GM POWDER PACKET (VELTASSA) PO ONE (10:54)
[2024-07-12 12:00] VITALS: BP 140/72; TEMP 97.9; O2SAT 92
[2024-07-12 12:30] LABS: CALCIUM LEVEL 9.3 MG/DL (8.3-10.6); CREATININE FOR GFR 1.51 MG/DL (0.55-1.30); GLOMERULAR FILTRATION RATE 35.6 (>39); POTASSIUM SERUM 4.2 MMOL/L (3.5-5.1)
[2024-07-12] MEDS ORDERED: CEFD1CAP9 PO (13:20)
[2024-07-12] MEDS ORDERED: MUPI2OI TOP (13:20)
[2024-07-12] MEDS ORDERED: PRED20TA PO (13:20)
== END 2024-07-12 16:06 | disposition home or self-care (01) | DRG 190 ==
LOC: EDBD 05:58 → M ED 05:58 → M ED INP 15:14 → EEVIPCON 15:14 → M PCU 17:08 → M MSPAV 07-11 23:43
PROVIDERS: ADMIT Student in an Organized Health Care Education/Training Program; ATTEND Hospitalist
DX: J44.1 Chronic obstructive pulmonary disease with (acute) exacerbation (principal); J18.9 Pneumonia, unspecified organism; J96.11 Chronic respiratory failure with hypoxia; Z68.41 Body mass index [BMI] 40.0-44.9, adult; K52.1 Toxic gastroenteritis and colitis; N17.9 Acute kidney failure, unspecified; I50.32 Chronic diastolic (congestive) heart failure; I13.0 Hypertensive heart and chronic kidney disease with heart failure and stage 1 through stage 4 chronic kidney disease, or unspecified chronic kidney disease; N25.81 Secondary hyperparathyroidism of renal origin; I27.29 Other secondary pulmonary hypertension; J44.0 Chronic obstructive pulmonary disease with (acute) lower respiratory infection; G47.33 Obstructive sleep apnea (adult) (pediatric); N18.30 Chronic kidney disease, stage 3 unspecified; M10.9 Gout, unspecified; E11.22 Type 2 diabetes mellitus with diabetic chronic kidney disease; K21.9 Gastro-esophageal reflux disease without esophagitis; K44.9 Diaphragmatic hernia without obstruction or gangrene; M54.9 Dorsalgia, unspecified; E66.01 Morbid (severe) obesity due to excess calories; E78.5 Hyperlipidemia, unspecified; H35.30 Unspecified macular degeneration; T36.95XA Adverse effect of unspecified systemic antibiotic, initial encounter; G89.29 Other chronic pain; D63.1 Anemia in chronic kidney disease; M79.7 Fibromyalgia; F32.A Depression, unspecified; G25.81 Restless legs syndrome; Z99.81 Dependence on supplemental oxygen; Z90.49 Acquired absence of other specified parts of digestive tract; Z85.3 Personal history of malignant neoplasm of breast; Z90.12 Acquired absence of left breast and nipple; Z86.73 Personal history of transient ischemic attack (TIA), and cerebral infarction without residual deficits; Z79.82 Long term (current) use of aspirin; Z79.899 Other long term (current) drug therapy

== ENCOUNTER 2024-09-03 12:11 | Outpatient (CLI) | payer MEDICARE, MEDICAID ==
[~2024-09-03] VITALS: Ht 167.6 cm; Wt 109.5 kg
[~2024-09-03 12:11] MED LIST changes: +ALBUTEROL SULFATE 2.5MG/0.5ML INH NEB SOLN INH PRN; +BUPR450T4 PO; +CEFD1CAP9 PO; +CYCL-707 PO; +DICL100G10 TOP; +EPINEPHrine INJ 1 MG/ML 1ML AMP IM PRN; +GABA-1172 PO; -GABA-282 PO; +LIDO1PAD TOP; +MAGN400T35 PO; +MUPI2OI TOP; +diphenhydrAMINE 50MG/ML VIAL IV PRN; +methylPREDNISolone 125MG 2ML VIAL IV PRN
[2024-09-03] MEDS ORDERED: NS 1,000 ML IV SCH (12:30)
[2024-09-03 12:35] VITALS: BP 128/76; O2SAT 96
[2024-09-03] MEDS: IRON SUCROSE 300 MG in NS 250 ML OVER 90 MIN. IV ONE (13:17)
[2024-09-03 15:00] VITALS: BP 138/66; O2SAT 94
== END 2024-09-03 15:01 | disposition home or self-care (01) ==
LOC: M INFU 12:11
PROVIDERS: ATTEND Internal Medicine Nephrology
DX: E61.1 Iron deficiency (principal)
CPT/HCPCS: 96365; 96366; J1756

== ENCOUNTER 2024-09-10 12:00 | Outpatient (CLI) | payer MEDICARE, MEDICAID ==
[~2024-09-10] VITALS: Ht 167.6 cm; Wt 112.7 kg
[~2024-09-10 12:00] MED LIST changes: +NS 1,000 ML IV SCH
[2024-09-10 12:05] VITALS: BP 132/71; O2SAT 97
[2024-09-10] MEDS: IRON SUCROSE 300 MG in NS 250 ML OVER 90 MIN. IV ONE (12:47)
[2024-09-10 14:26] VITALS: BP 127/58; O2SAT 97
== END 2024-09-10 14:35 ==
LOC: M INFU 12:00
PROVIDERS: ATTEND Internal Medicine Nephrology
DX: E61.1 Iron deficiency (principal)
CPT/HCPCS: 96365; J1756